=== PATIENT | female | born 2005 | race Caucasian/White ===

== ENCOUNTER 2025-03-21 16:19 | Emergency (ER) | payer MEDICAID, SELFPAY ==
--- OUTSIDE RECORDS SUMMARY | 2025-03-18 13:00 | XMS_ITS | Encounter Summary ---
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 Name Role Phone Ivan Cunha MD Primary Care Provider [phone] Villa Stout APRN Unavailable [phone] Gilmer Dhillon MD Unavailable [phone] Reason for Referral * Psychiatric (Routine) - Authorized Specialty Diagnoses / Procedures Referred By Contac t Referred To Contact Psychiatry Diagnoses Chronic migraine without aura without status migrainosus, not intractable Parker Peterson MD [address] [place] [address] [place] [address] Phone: tel: fax: [facility] Department of Psychiatry [address] [place] [address] Phone: tel: fax: Referral ID Status Reason Start Date Expiration Date Visits Requested Visits Authorized [id number] Authorized Specialty Services Required 03/18/2025 04/22/2026 1 1 * Diagnostic Lab (Routine) - Authorized Specialty Diagnoses / Procedures Referred By Contac t Referred To Contact Sleep Medicine Diagnoses Sleep apnea, unspecified type Procedures Home sleep testing Parker Peterson MD [address] [place] [address] [place] [address] Phone: tel: fax: Referral ID Status Reason Start Date Expiration Date V isits Requested Visits Authorized [id number] Authorized 03/18/2025 04/22/2026 1 1 Reason for Visit * Reason Comments Tonsil Stones Sore throat. Comes a nd goes. Sometimes has white stuff. headaches Vaginitis/Bacterial Vaginosis Used 1 wee k of metronidazole. White discharge and itching. Encounter Details Date Type Department Care Team (Late st Contact Info) Description 03/18/2025 1:00 PM EDT Office Visit [facility] Department of Internal Medicine [address], [place] [id number] Parker Peterson MD [address] [facility] [place] [address] Throat pain (Primary Dx); Vaginal discharge; Headache disorder; Chronic migraine without aura without status migrainosus, not intractable; Allergic rhinitis, unspecified seasonality, unspecified trigger; Otalgia of both ears; Pain with swallowing; Left lower quadrant abdominal pain; Abdominal bloating; Alternating constipation and diarrhea; Cramp, abdominal; Dyspnea on exertion; Chest tightness; Adjustment disorder with mixed anxiety and depressed mood; History of bipolar disorder; Family history of asthma; Mild intermittent asthma without complication; Family history of dementia; Memory problem; Family history of stroke; Family history of diabetes mellitus; Prediabetes; Family history of arthritis; Family history of kidney stone; Neck pain; Urinary urgency; History of UTI; History of endometriosis; History of chlamydia; PE (pulmonary thromboembolism) (HCC); History of pulmonary embolism; Abnormal uterine bleeding; History of tachycardia; Sleep apnea, unspecified type; Vitamin D deficiency; Need for hepatitis B vaccination; PCOS (polycystic ovarian syndrome) Social History Tobacco Use Types Packs/Day Years Used Date Smoking Tobacco: Never Passive Smoke Exposure: Never Smokeless Tobacco: Never Alcohol Use Standard Drinks/Week Comments Yes 0 (1 standard drink = 0.6 oz pur e alcohol) infrequent [facility] Utilities Answer Date Recorded In the past 12 months has e electric, gas, oil, or water company threatened to shut off services in your home? Yes 07/19/2024 Overall Financial Resource Strain (CARDIA) Answe r Date Recorded How hard is it for you to pa y for the very basics like food, housing, medical care, and heating? Somewhat hard 07/19/2024 PHQ-2 Answer Date Recorded PHQ-2 Score 0 12/29/2024 Hunger Vital Sign Answer Date Recorded Within the past 12 months, y ou worried that your food would run out before you got the money to buy more. Often true 07/19/19 25 Within the past 12 months, t he food you bought just didn't last and you didn't have money to get more. Often true 07/19/2024 PRAPARE - Transportation Answer Date Re corded In the past 12 months, has l ack of transportation kept you from medical appointments or from getting medications? No 07/19/2024 Lack of Transportation (Non-Medical) Not on file 07/19/2024 Housing Stability Vital Sign Answer Anthony e Recorded In the last 12 months, was t here a time when you were not able to pay the mortgage or rent on time? Yes 07/19/2024 In the past 12 months, how m any times have you moved where you were living? 4 07/19/2024 At any time in the past 12 m [facility], were you homeless or living in a custodial (including now)? No 07/19/2024 Comments No Sex and Gender Information Value Date Recorded Sex Assigned at Female 12/22/2023 2:27 PM EDT Legal Sex Female 10:41 AM EST Gender Identity Female 12/22/2023 2:27 PM EDT Sexual Orientation Straight 12/22/2023 2: 27 PM EDT COVID-19 Exposure Response Date Recorded In the last 10 days, have yo u been in contact with someone who was confirmed or suspected to have Coronavirus/COVID-19? No / Unsure 03/18/2025 1:02 PM EDT documented as of this encounter Last Filed Vital Signs Vital Sign Reading Time Taken Comments Blood Pressure 113/76 03/18/2025 1:06 PM EDT Pulse 83 03/18/2025 1:06 PM EDT Temperature 36.9 C (98.4 F) 03/18/2025 1:06 PM EDT Respiratory Rate - - Oxygen Saturation 97% 03/18/2025 1:06 PM EDT Inhaled Oxygen Concentration - - Weight 100 kg (220 lb 14.4 oz) 03/18/2025 1:06 P M EDT Height 160 cm (5' 3 ) 03/18/2025 1:06 PM EDT Body Mass Index 39.13 03/18/2025 1:06 PM EDT documented in this encounter Patient Instructions * Patient Instructions* Katrina Molina RN - 03/18/2025 1:00 PM EDT Please schedule nursing visit for second dose of Hepatitis B vaccine in one month 06/25 Sleep Snore Tttired O P BMI * Attachments The following attachments cannot be sent through Care Everywhere. * Low-FODMAP Eating Plan ([place] Ze[place]) * Hepatitis B Vaccine: What You Need to Know ([place]) documented in this encounter Progress Notes * Parker Peterson MD - 03/18/2025 1:00 PM EDT Follow-up Note Patient ID: Megan Dominguez is a 19 y.o. female. Patient Care Team: Ivan Cunha MD as PCP - General (Internal Medicine) Villa Stout APRN as Advanced Nurse Practitioner (Obstetrics and Gynecology) Gilmer Dhillon MD as Referring Physician (Obstetrics and Gynecology) Other Visits in Internal Medicine Date Provider Primary Dx 12/29/2024 Beverley Amanda MD Nail fungus 08/20/2024 Shelli Camarena APRN Seasonal allergies 07/19/2024 Ivan Cunha MD Annual physical exam Subjective Chief Complaint Patient presents with Tonsil Stones Sore throat. Comes and goes. Sometimes has white stuff. headaches Vaginitis/Bacterial Vaginosis Used 1 week of metronidazole. White discharge and itching. 19-year-old female with past medical history of migraines, morbid obesity, reactive airway possiblepersistent asthma however just on albuterol, PCOS, suspicion IBS, reported bipolar per patient justdoing talk therapy on trazodone however taking intermittently for insomnia, recurrent UTI, recentlybeen treated for vaginosis however not for Radha here for vaginal discharge also mentioning throat issues currently not having any whitish discharge but previously did noted does have ENT issues including otalgia however no hearing loss complains of GI discomfort chronic constipation alternating with diarrhea. Currently not following actively with behavioral health however taking as needed trazodone which was previously prescribed Review of Systems Constitutional: For ROS -see HPI and see assessment/plan Medications Ordered Prior to Encounter[1] Allergies: Shellfish containing products and Lactose Objective BP 113/76 (BP Location: Left upper arm, Patient Position: Sitting) Pulse 83 Temp 36.9 ??C (98.4??F) (Oral) Ht 160 cm (63 ) Wt 100 kg (220 lb 14.4 oz) SpO2 97% BMI 39.13 kg/m?? Physical Exam Constitutional: Appearance: She is obese. HENT: Head: Normocephalic and atraumatic. Comments: Tonsils with no redness/no white discharge Right Ear: Tympanic membrane normal. There is impacted cerumen. Left Ear: Tympanic membrane normal. There is impacted cerumen. Cardiovascular: Rate and Rhythm: Normal rate. Pulmonary: Effort: Pulmonary effort is normal. Breath sounds: Normal breath sounds. Neurological: General: No focal deficit present. Mental Status: She is alert and oriented to person, place, and time. Assessment Plan History of pulmonary embolism 4. Pulmonary/Derm/ENT Throat pain history of PE allergic rhinitis, otalgia of both ears, pain with swallowing, dyspnea onexertion, chest tightness, possible persistent asthma normal intermittent, family history of asthma, history of repeated elevation, need hep B vaccine Recommended using DuoNeb Will start on Flovent given patient has symptoms more than 2 days a week but remains a month Consider ENT referral in the future Per last note - She reports no current shortness of breath, chest pain, or exercise limitations. Continue to monitor for any recurrence of symptoms. Educated the patient on the increased risk for future surgeries and the need for pre- operative evaluations and possible prophylactic measures PCOS (polycystic ovarian syndrome) 7. Endocrine/thyroid BMI 39, family history of diabetes, prediabetes history, and history of kidney stone, vitamin D deficiency Will get a vitamin D level repeat Lab Results Component Value Date TSH 1.52 07/19/2024 Lab Results Component Value Date HGBA1C 5.0 07/19/2024 Per last note - A1c: 5.4 (checked by Powerhouse Electrician Apprentice on 02/16) - She reports being prescribed Mounjaro and Ozempic by her Powerhouse Electrician Apprentice. Unsure why both were prescribed simultaneously. Patient to clarify with her Powerhouse Electrician Apprentice regarding the choice of medication, as both are not typically prescribed together. Instructed the patient to follow up with pharmacy and insurance for approval and confirm the chosen medication. - Encouraged her to focus on diet,exercise, and weight loss to improve insulin resistance and prevent progression to diabetes. - Scheduled a follow-up appointment in one month to monitor her response to either Ozempic or Mounjaro and assess for any side effects. Alternating constipation and diarrhea 2. Gastrointestinal/ Vaginal discharge, history of BV and Radha, reported chlamydia history, left lower quadrant pain,abdominal bloating, alternating constipation and diarrhea, cramps, urinary urgency, history of UTI,history of endometriosis following the surgery had a PE, pain w swallowing -Will start on Bentyl dicyclomine as needed for cramps, Repeat iron panel, due to vitamin D deficiency check a celiac panel due to diarrhea Get calprotectin to rule out IBD H. pylori breath 6/stool Pepcid bid sent as needed Will send fluconazole 1 tablet get urine GC Per previous-Note - Abdominal XR to eval for suspected underlying constipation. Also suspect lower abdominal pain r/tto reported bowel habits. Pt advised to complete urine test prior to XR; testing ordered - Advised to avoid dairy Chronic migraine without aura without status migrainosus, not intractable #3 Neuropsychiatry Headache disorder, migraines, otalgia, adjustment disorder with anxiety depression, per patient wasdiagnosed with bipolar disorder had nightmares with Singulair questionable PTSD mentioned in previous note, memory problem, family history of stroke, family hx of dementia, suspicion sleep apnea Will reorder the sleep test Refill sumatriptan the patient can avoid NSAIDs which can cause stomach issues Behavioral health referral Ambulatory referral to Psychiatry Intensive Outpatient Program (IOP)?: Yes Pharmacotherapy?: Yes Conditions for referral? (Select all that apply): Bipolar Disorder Reason for Referral: talking with therapist,Trazodone for sleeping, Duloxetine urine issue, Venlaflaxine , Amitrypitiline will help with migraine, helps with IBS . TOPAMAX mood stabilizes, migraines,weight loss Release to patient: Immediate Per last note headaches are worsening. Sumatriptan has helped with her symptoms. Now that she is off of anticoagulation can also try naproxen. Magnesium for daily prophylaxis. Neurology referral given chronicity and severity. Family history of stroke 1 cardiovascular Dyspnea on exertion suspicion for reactive airway using a lot of albuterol, at history of tachycardia,family history of stroke, history of PE Should decrease the use of rescue inhaler, controller inhaler sent for persistent asthma Sleep medicine referral Lab Results Component Value Date LDLCALC 69 07/19/2024 Family history of arthritis #9 renal/musculoskeletal Headache disorder/migraines, family history of arthritis, neck pain, history of UTI, vitamin D deficiency Vitamin B2 to prevent migraines Voltaren gel for neck pain, since crooked hands in the family will check serology for rheumatoid Due to PTT elevation in the past and PE get ANDREA Avoid oral NSAIDs due to GI issues Tylenol as needed is okay Sumatriptan for migraines Return in about 2 weeks (around 04/01/2025). No LOS data to display Prepared/Electronically Signed by: Parker Peterson MD, 03/21/25 9:06 AM [1] Current Outpatient Medications on File Prior to Visit Medication Sig Dispense Refill BIOTIN ORAL Take by mouth. cholecalciferol, vitamin D3, (Vitamin D3) 25 mcg (1,000 unit) capsule Take 1,000 Units by mouth in the morning. cyanocobalamin, vitamin B-12, (VITAMIN B-12 ORAL) Take by mouth. EPINEPHrine (EPIPEN) 0.3 mg/0.3 mL injection Inject 0.3 mg into the muscle as needed for anaphylaxis (Anaphylaxis allergic reaction). 1 each 0 levocetirizine (XYZAL) 5 mg tablet TAKE 1 TABLET BY MOUTH EVERY DAY AT NIGHT 30 tablet 2 traZODone (DESYREL) 50 mg tablet Take 1 tablet (50 mg total) by mouth nightly as needed for insomnia. 90 tablet 0 [] ciclopirox (PENLAC) 8 % solution Apply topically nightly. Apply over nail and surroundingskin. Apply daily over previous coat. After seven (7) days, may remove with alcohol and continue cycle. (Patient not taking: Reported on 12/30/2024) 6.6 mL 0 dextromethorphan-guaifenesin (Tussin DM) 10-100 mg/5 mL liquid Take 5 mL by mouth 3 (three) times aday as needed (cough). (Patient not taking: Reported on 03/18/2025) 120 mL 0 diazePAM (Valium) 5 mg tablet Take one tablet 2 hours prior to the procedure (Patient not taking: Reported on 03/18/2025) 1 tablet 0 ergocalciferol (VITAMIN D2) 1,250 mcg (50,000 unit) capsule Take 1 capsule (50,000 Units total) by mouth once a week. (Patient not taking: Reported on 03/18/2025) 12 capsule 0 glycerin, ADULT, suppository Insert 1 suppository into the rectum daily as needed for constipation.(Patient not taking: Reported on 03/18/2025) 12 each 0 ketotifen (Zaditor) 0.025 % (0.035 %) ophthalmic solution Administer 1 drop into both eyes in the morning and 1 drop before bedtime. (Patient not taking: Reported on 03/18/2025) 5 mL 2 magnesium oxide 400 mg magnesium capsule Take 400 mg by mouth in the morning. (Patient not taking: Reported on 03/18/2025) 30 each 0 [] metFORMIN (GLUCOPHAGE) 500 mg tablet Take 1 tablet (500 mg total) by mouth in the morningand 1 tablet (500 mg total) in the evening. Take with meals. 60 tablet 2 Purelax 17 gram packet TAKE 17 G BY MOUTH IN THE MORNING. (Patient not taking: Reported on 03/18/2025) 30 packet 0 rimegepant 75 mg tablet,disintegrating Take 75 mg by mouth every other day. (Patient not taking: Reported on 03/18/2025) 15 tablet 0 UNKNOWN TO PATIENT Take 2 puffs by mouth as needed. Inhaler, cannot remember the name (Patient not taking: Reported on 03/18/2025) No current facility-administered medications on file prior to visit. documented in this encounter Miscellaneous Notes * Assessment & Plan Note - Parker Peterson MD - 03/21/2025 9:28 AM EDTAssociated Problem(s): Family history of arthritis #9 renal/musculoskeletal Headache disorder/migraines, family history of arthritis, neck pain, history of UTI, vitamin D deficiency Vitamin B2 to prevent migraines Voltaren gel for neck pain, since crooked hands in the family will check serology for rheumatoid Due to PTT elevation in the past and PE get ANDREA Avoid oral NSAIDs due to GI issues Tylenol as needed is okay Sumatriptan for migraines * Assessment & Plan Note - Parker Peterson MD - 03/21/2025 9:26 AM EDTAssociated Problem(s): Family history of stroke 1 cardiovascular Dyspnea on exertion suspicion for reactive airway using a lot of albuterol, at history of tachycardia,family history of stroke, history of PE Should decrease the use of rescue inhaler, controller inhaler sent for persistent asthma Sleep medicine referral Lab Results Component Value Date LDLCALC 69 07/19/2024 * Assessment & Plan Note - Parker Peterson MD - 03/21/2025 9:23 AM EDTAssociated Problem(s): Chronic migraine without aura without status migrainosus, not intractable #3 Neuropsychiatry Headache disorder, migraines, otalgia, adjustment disorder with anxiety depression, per patient wasdiagnosed with bipolar disorder had nightmares with Singulair questionable PTSD mentioned in previous note, memory problem, family history of stroke, family hx of dementia, suspicion sleep apnea Will reorder the sleep test Refill sumatriptan the patient can avoid NSAIDs which can cause stomach issues Behavioral health referral Ambulatory referral to Psychiatry Intensive Outpatient Program (IOP)?: Yes Pharmacotherapy?: Yes Conditions for referral? (Select all that apply): Bipolar Disorder Reason for Referral: talking with therapist,Trazodone for sleeping, Duloxetine urine issue, Venlaflaxine , Amitrypitiline will help with migraine, helps with IBS . TOPAMAX mood stabilizes, migraines,weight loss Release to patient: Immediate Per last note headaches are worsening. Sumatriptan has helped with her symptoms. Now that she is off of anticoagulation can also try naproxen. Magnesium for daily prophylaxis. Neurology referral given chronicity and severity. * Assessment & Plan Note - Parkre Peterson MD - 03/21/2025 9:20 AM EDTAssociated Problem(s): Alternating constipation and diarrhea 2. Gastrointestinal/ Vaginal discharge, history of BV and Radha, reported chlamydia history, left lower quadrant pain,abdominal bloating, alternating constipation and diarrhea, cramps, urinary urgency, history of UTI,history of endometriosis following the surgery had a PE, pain w swallowing -Will start on Bentyl dicyclomine as needed for cramps, Repeat iron panel, due to vitamin D deficiency check a celiac panel due to diarrhea Get calprotectin to rule out IBD H. pylori breath 6/stool Pepcid bid sent as needed Will send fluconazole 1 tablet get urine GC Per previous-Note - Abdominal XR to eval for suspected underlying constipation. Also suspect lower abdominal pain r/tto reported bowel habits. Pt advised to complete urine test prior to XR; testing ordered - Advised to avoid dairy * Assessment & Plan Note - Parker Peterson MD - 03/21/2025 9:16 AM EDT Associated Problem(s): PCOS (polycystic ovarian syndrome) 7. Endocrine/thyroid BMI 39, family history of diabetes, prediabetes history, and history of kidney stone, vitamin D deficiency Will get a vitamin D level repeat Lab Results Component Value Date TSH 1.52 07/19/2024 Lab Results Component Value Date HGBA1C 5.0 07/19/2024 Per last note - A1c: 5.4 (checked by Powerhouse Electrician Apprentice on 02/16) - She reports being prescribed Mounjaro and Ozempic by her Powerhouse Electrician Apprentice. Unsure why both were prescribed simultaneously. Patient to clarify with her Powerhouse Electrician Apprentice regarding the choice of medication, as both are not typically prescribed together. Instructed the patient to follow up with pharmacy and insurance for approval and confirm the chosen medication. - Encouraged her to focus on diet,exercise, and weight loss to improve insulin resistance and prevent progression to diabetes. - Scheduled a follow-up appointment in one month to monitor her response to either Ozempic or Mounjaro and assess for any side effects. * Assessment & Plan Note - Parker Peterson MD - 03/21/2025 9:06 AM EDTAssociated Problem(s): History of pulmonary embolism 4. Pulmonary/Derm/ENT Throat pain history of PE allergic rhinitis, otalgia of both ears, pain with swallowing, dyspnea onexertion, chest tightness, possible persistent asthma normal intermittent, family history of asthma, history of repeated elevation, need hep B vaccine Recommended using DuoNeb Will start on Flovent given patient has symptoms more than 2 days a week but remains a month Consider ENT referral in the future Per last note - She reports no current shortness of breath, chest pain, or exercise limitations. Continue to monitor for any recurrence of symptoms. Educated the patient on the increased risk for future surgeries and the need for pre- operative evaluations and possible prophylactic measures documented in this encounter Plan of Treatment Upcoming Encounters Date Type Department Care Team (Late st Contact Info) Description 04/07/2025 1:40 PM EDT Office Visit [facility] Department of Internal Medicine [address] [place] [address] Ivan Cunha MD [address] [facility] [place] 04/07/2025 3:00 PM EDT Office Visit [facility] Department of Neurology [address] [place] [address] Dionisio Barnhart MD [address] [place] [address] 2025 12:40 PM EST Office Visit [facility] Department of Internal Medicine [address] [place] [address] Ivan Cunha MD [address] [facility] [place] [address] 01/02/2026 10:00 AM EDT Office Visit [facility] [place] [address] [place] [address] Villa Stout APRN [address] [facility] [place] [address] Scheduled Orders Name Type Priority Associated Diagnoses Orde r Schedule HELICOBACTER PYLORI, UREA BREATH TEST (Q) Lab Routine Abdominal bloating 1 Occurrences starting 03/18/2025 until 03/18/2026 Home sleep testing Sleep Center Routine Sleep apnea, unspecified type 1 Occurrences starting 03/18/2025 until 03/18/2026 Neisseria gonorrhea/Chlamydia trachomatis NAAT Microbiology Routine Vaginal discharge 1 Occurrences starting 03/18/2025 until 03/18/2026 Urinalysis, Complete - macroscopic and microscopic (Panel) Lab Routine Vaginal discharge 1 Occurrences starting 03/18/2025 until 09/15/2026 Basic metabolic panel Lab Routine Abdominal bloating 1 Occurrences starting 03/18/2025 until 09/15/2026 Complete blood count (CBC) and differential Lab Routine Abdominal bloating 1 Occurrences starting 03/18/2025 until 03/18/2026 Calprotectin, Fecal Lab Routine Abdominal bloating 1 Occurrences starting 03/18/2025 until 09/15/2026 Vitamin D 25 hydroxy Lab Routine Vitamin D deficiency 1 Occurrences starting 03/18/2025 until 03/18/2026 Activated partial thromboplastin time (aPTT) Lab Routine PE (pulmonary thromboembolism) (HCC) Expected: 03/18/2025, Expires: 03/18/2026 Antinuclear Antibody (ANDREA) Qualitative, Reflex to Titer Lab Routine Family history of arthritis 1 Occurrences starting 03/18/2025 until 09/15/2026 Rheumatoid Factor Lab Routine Family history of arthritis 1 Occurrences starting 03/18/2025 until 09/15/2026 Cylic Ctrullinated Peptide Antibody Lab Routine Family history of arthritis 1 Occurrences starting 03/18/2025 until 03/18/2026 Helicobacter pylori Ag, fecal by CARMITA Lab Routine Abdominal bloating 1 Occurrences starting 03/18/2025 until 09/15/2026 Iron, TIBC, and Ferritin panel Lab Routine Abnormal uterine bleeding 1 Occurrences starting 03/18/2025 until 09/19/2026 Celiac Disease Reflexive [place], Serum Lab Routine Alternating constipation and diarrhea 1 Occurrences starting 03/18/2025 until 09/15/2026 C-reactive protein Lab Routine Abdominal bloating 1 Occurrences starting 03/18/2025 until 09/15/2026 Scheduled Referrals Name Type Priority Associated Diagnoses Orde r Schedule Ambulatory referral to Psychiatry Outpatient Referral Routine Chronic migraine without aura without status migrainosus, not intractable Ordered: 03/18/2025 documented as of this encounter Visit Diagnoses Diagnosis Throat pain- Primary Vaginal discharge Leukorrhea, not specified as infective Headache disorder Headache Chronic migraine without aura without status migrainosus, not intractable Allergic rhinitis, unspecified seasonality, unspecified trigger Otalgia of both ears Pain with swallowing Dysphagia, unspecified Left lower quadrant abdominal pain Abdominal bloating Flatulence, eructation, and gas pain Alternating constipation and diarrhea Cramp, abdominal Abdominal pain, unspecified site Dyspnea on exertion Other dyspnea and respiratory abnormality Chest tightness Other chest pain Adjustment disorder with mixed anxiety and depressed mood History of bipolar disorder Family history of asthma Mild intermittent asthma without complication Family history of dementia Family history of other neurological diseases Memory problem Memory loss Family history of stroke Family history of stroke (cerebrovascular) Family history of diabetes mellitus Prediabetes Other abnormal glucose Family history of arthritis Family history of kidney stone Family history of other kidney diseases Neck pain Cervicalgia Urinary urgency Urgency of urination History of UTI History of endometriosis Personal history of other genital system and obstetric disorders History of chlamydia PE (pulmonary thromboembolism) (HCC) Chronic pulmonary embolism History of pulmonary embolism Personal history of venous thrombosis and embolism Abnormal uterine bleeding Unspecified disorder of menstruation and other abnormal bleeding from female genital tract History of tachycardia Sleep apnea, unspecified type Vitamin D deficiency Need for hepatitis B vaccination PCOS (polycystic ovarian syndrome) Polycystic ovaries documented in this encounter Additional Health Concerns Assessment Noted Time PHQ-9 Depression Total Score: 17 024 11:26 AM EDT documented as of this encounter Care Teams 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
--- OUTSIDE RECORDS SUMMARY | 2025-03-20 11:30 | XMS_ITS | Encounter Summary ---
Author Organization [facility] Address [address] [place] [address] Care Team Providers Care Cooling Tower Operator Name Role Phone Lacey Miller MD Unavailable [phone] Ivan Cunha MD Primary Care Provider [phone] Reason for Visit * Reason Comments Vaginitis Pt stated possible y east infection x few days. Encounter Details Date Type Department Care Team ([facility] Contact Info) Description 03/20/2025 11:30 AM EDT Office Visit [facility] [address] [phone] John Johnson MD [address] [place] [address] Elena Hawthorne, MOTOR VEHICLE EXAMINER [address] [place] [address] Vaginal discharge (Primary Dx); Acute cystitis without hematuria Social History Tobacco Use Types Packs/Day Years Used Date Smoking Tobacco: Never Assessed Comments No Sex and Gender Information Value Date Recorded Sex Assigned at Female 06/16/2022 10:51 PM EST Legal Sex Female 7:21 PM EST Gender Identity Female 06/16/2022 10:51 PM EST Sexual Orientation Heterosexual (straight) 06/16 10:51 PM EST documented as of this encounter Last Filed Vital Signs Vital Sign Reading Time Taken Comments Blood Pressure 109/74 03/20/2025 11:43 AM EDT Pulse 83 03/20/2025 11:43 AM EDT Temperature 36.2 C (97.2 F) 03/20/2025 11:43 AM EDT Respiratory Rate 18 03/20/2025 11:43 AM EDT Oxygen Saturation 98% 03/20/2025 11:43 AM EDT Inhaled Oxygen Concentration - - Weight - - Height - - Body Mass Index - - documented in this encounter Progress Notes * Elena Hawthorne, MOTOR VEHICLE EXAMINER - 03/20/2025 11:56 AM EDT Assessment & Plan Megan was seen today for vaginitis. Diagnoses and all orders for this visit: Vaginal discharge - SureSwab Advanced Vaginitis Plus, TMA - Urine Culture - POCT Urinalysis Dipstick, Automated - nystatin (MYCOSTATIN) 204955 UNIT/GM cream; Apply topically 2 (two) times a day as needed (external vaginal irritation yeast). - fluconazole (diFLUcan) 150 MG tablet; Take 1 tablet (150 mg total) by mouth as needed (take one today may repeat in 72 hrs if yeast symptoms persist). Acute cystitis without hematuria - phenazopyridine (PYRIDIUM) 200 MG tablet; Take 1 tablet (200 mg total) by mouth 3 (three) times aday as needed for bladder spasms. Take with food. Stains urine dark orange. - nitrofurantoin monohydrate (MACROBID) 100 MG capsule; Take 1 capsule (100 mg total) by mouth 2 (two) times a day with meals. Dispense generic equivalent of MACROBID Medical Decision Making and Data Synthesis: The diagnosis is acute cystitis with hematuria and vaginal discharge based on history, physical exam, and lab/diagnostic testing. I considered pyelonephritis, kidney stone, and other bacterial infections, but the pt's presentation does not support these diagnoses. UA dipstick positive for infection. The pt/family was advised that some diseases present atypically and the pt was given explicit discharge instructions. -Will initiate macrobid at this time. Instructed pt to take antibiotic as directed. Pelvic exam wasdeclined today. -Pyridium q 8 hrs PRN urinary discomfort/burning. Take with food to prevent nausea. Do not use contact lenses while taking, as this medication contains a dye that may alter the color of tears, feces,and urine (usually changes to a dark orange hue). Recommend wearing a panty liner to prevent staining underwear. -Will send urine for culture and adjust antibiotic therapy if needed. Will prescribe fluconazole and nystatin as patient has high suspicion for yeast infection as she is white thick discharge. -Advised patient to increase fluids and avoid caffeine and alcohol, as these can irritate the bladder. -Instructed pt to wipe front to back, wear cotton underwear to help improve air flow. -Urinate after intercourse. -Avoid perfumed lotions or soaps. Use mild soaps when cleaning perineal region. -Cranberry pills are helpful to take daily if you have recurrent UTIs. The cranberry juice is shown to have a lot of sugar and is not recommended. Follow up with PCP or SERVICE AND REPAIR SUPERVISOR within 1 week if symptoms do not improve.. Patient declined test today. Reviewed with the patient any signs and symptoms that would warrant immediate medical attention. Ifany new or worsening symptoms develop, including fevers, chills, flank pain, pelvic pain, vaginal pain, vaginal discharge, bleeding, abdominal pain, nausea, or vomiting, instructed the pt to go directly to the emergency department for reevaluation. Patient understands and agrees with the plan. Communication barriers and lifestyle preferences were addressed with the Patient and/or family. Thecare plan including medications and self-management goals were reviewed to the best of the Patient and/or family's ability. All questions and concerns were answered. Patient and/or family verbalized understanding of the plan of care. Subjective Megan Dominguez is a 19 y.o. female HPI Chief Complaint: Dysuria, frequency, and urgency Location: Bladder Duration: 3 days Context: Acute Severity: Moderate Other Pertinent History: Patient presents to the clinic today with urinary frequency, urgency, and dysuria for the past 3 days. Also with white thick vaginal discharge and irritation to external labia. She denies any genitalsores. She recently had BV and was treated with metronidazole. She has PCOS. She is not on control. She has endometriosis. Aggravating/Alleviating factors: worse with urination, nothing makes it better OTC therapy attempted: None She does not get her period as she has PCOS and endometriosis. Patient denies current or breast-feeding. Denies fever, chills, nausea, vomiting, diarrhea, flank pain, back pain, gross hematuria, recent urological procedure, or abdominal pain. I have reviewed the patients medications, allergies, past medical history, social history and family history as documented. History reviewed. No pertinent past medical history. History reviewed. No pertinent surgical history. Social History[1] History reviewed. No pertinent family history. Review of Systems: All other systems reviewed are negative except where documented below: Cardiovascular: No Chest pain Pulmonary: No SOB Gastrointestinal: No Vomiting; No Diarrhea Constitutional: No Fever : See HPI Objective Vitals: 03/20/25 1143 BP: 109/74 Pulse: 83 Resp: 18 Temp: 97.2 ??F (36.2 ??C) SpO2: 98% Vital signs reviewed. Constitutional: Well-appearing, in no apparent respiratory distress. Does not appear toxic. Eyes: Conjunctivae clear. No icterus. Ear, Nose, Mouth, Throat: Grossly normal inspection. Normal voice, handling secretions normally. Neck: Supple, no nuchal signs. No cervical lymphadenopathy. Cardiovascular: Normal S1, S2. No extra heart sounds. Respiratory: Breath sounds clear and equal bilaterally, no wheezes, rales, or rhonchi. Gastrointestinal: Soft and non-tender throughout. BS normal x 4 quadrants. Back: Bilateral negative CVAT. Musculoskeletal: No extremity tenderness. Skin: Normal for age and race, grossly normal temperature and turgor. No acute rash. Neurologic: Alert and appropriate, no apparent acute deficits. Normal gait. Psychiatric: Mood and manner are appropriate. Grooming and personal hygiene are appropriate. Hematologic: No significant bruising, petechia, or purpura. Pelvic exam declined today. Results for orders placed or performed in visit on 03/20/25 POCT Urinalysis Dipstick, Automated Collection Time: 03/20/25 11:57 AM Specimen: Urine Result Value Ref Range Source, UA Clean Catch Color, UA Yellow Yellow & Clear, Yellow Clarity, UA Slightly Cloudy (A) Clear Glucose, UA Negative Negative Bilirubin, UA Negative Negative Ketones, UA Negative Negative Spec Grav, UA 1.025 1.005, 1.010, 1.015, 1.020, 1.025 Blood, UA Negative Negative pH, UA 6.0 5.0, 5.5, 6.0, 6.5, 7.0, 7.5, 8.0 Protein, UA Negative Negative Urobilinogen, UA 0.2 0.2, 1.0 Nitrite, UA Negative Negative Leukocyte Esterase, UA Large (+++) (A) Negative Lot Number [id number] Geotechnical Department Manager Pass Pass Elena Hawthorne APRN 03/20/25 12:03 PM [1] documented in this encounter Plan of Treatment Scheduled Orders Name Type Priority Associated Diagnoses Orde r Schedule Urine Culture Microbiology Routine Vaginal discharge Ordered: 03/20/2025 documented as of this encounter Goals Goal Patient Goal Type Associated Problems Recent Progress Patient-Stated? Author PT STG 1 Physical Therapy No Michel Steele, PT Note: PF 1. Initiate and complete the pelvic floor biofeedback assessment with the use of the PT Supplied PG 6330 Insert x 1 week. PT LTG 2 Physical Therapy No Michel Steele PT Note: PF 2. Provide patient education and training to improve bladder control and eliminate pelvic pain with the use of the following interventions consisting of pelvic floor muscle retraining and strengthening, core strengthening as needed, LE hip extension strengthening, Dilator utilization, intra vaginal MFR techniques, breath control and time voiding techniques x 12 weeks. PT LTG 3 Physical Therapy No Michel Steele, PT Note: PF 3. Improve the Initial PFIQ Survey Score Pelvis and Bladder Section to less than 16 x twelve weeks. PT LTG 4 Physical Therapy No Michel Steele, PT Note: PF 4. Improve pelvic floor muscle resting tone and pelvic floor muscle strength, as needed to +3.00 microvolt's, uV and +12.0 - +15.0 microvolt's, uV respectively x 12 weeks. documented as of this encounter Procedures Procedure Name Priority Date/Time Associated Diagnosis Comments POCT URINALYSIS DIPSTICK, AUTOMATED Routine 03/20/2025 11:57 AM EDT Vaginal discharge SURESWAB ADVANCED VAGINITIS PLUS, TMA Routine 03/20/2025 11:56 AM EDT Vaginal discharge documented in this encounter Results * (ABNORMAL) POCT Urinalysis Dipstick, Automated (03/20/2025 11:57 AM EDT) Pathologist [facility] Source, UA Clean Catch Color, UA Yellow Yellow & Clear, Yellow Clarity, UA Slightly Cloudy(A) Clear Glucose, UA Negative Negative Bilirubin, UA Negative Negative Ketones, UA Negative Negative Spec Grav, UA 1.025 1.005, 1.010, 1.015, 1.020, 1.025 Blood, UA Negative Negative pH, UA 6.0 5.0, 5.5, 6.0, 6.5, 7.0, 7.5, 8.0 Protein, UA Negative Negative Urobilinogen, UA 0.2 0.2, 1.0 Nitrite, UA Negative Negative Leukocyte Esterase, UA Large (+++)(A) Negative Lot Number [id number] Geotechnical Department Manager Pass Pass Urine 03/20/2025 11:5 7 AM EDT Elena Hawthorne MOTOR VEHICLE EXAMINER POINT OF CARE TEST ORDERAB LES Final Result * (ABNORMAL) [facility] Advanced Vaginitis Plus, TMA (03/20/2025 11:56 AM EDT) [facility] Adv Bacterial Vaginosis (BV), TMA NEGATIVE NEGATIVE MissingLINK Radha Species DETECTED(A) NOT DETECTED MissingLINK Radha Glabrata NOT DETECTED NOT DETECTED MissingLINK Comment: Radha species C. albicans, C. tropicalis, C. parapsilosis, and/or C. dubliniensis can be detected, but not differentiated, in the Radha spp. result. Trichomonas Vaginalis (TV), TMA NOT DETECTED NOT DETECTED MissingLINK Chlamydia Trachomatis RNA, TMA NOT DETECTED NOT DETECTED MissingLINK Neisseria Gonorrhoeae RNA, TMA NOT DETECTED NOT DETECTED MissingLINK Comment: For additional information, please refer to https://education.[employer]/faq/WSN670 (This link is being provided for information/ educational purposes only.) 03/20/2025 11:5 6 AM EDT 03/21/2025 3:36 AM EDT us Elena Hawthorne MOTOR VEHICLE EXAMINER LAB AMB MICRO ORDERABLES F inal Result [facility] [address] [place] [phone] documented in this encounter Visit Diagnoses Diagnosis Vaginal discharge- Primary Leukorrhea, not specified as infective Acute cystitis without hematuria documented in this encounter Care Teams Cooling Tower Operator Relationship Specialty Start Date End Date Ivan Cunha MD [address] [place] [id number] PCP - General Internal Medicine 12/31/23 Lacey Miller MD [address] [address] Pediatric, General 05/30/23 documented as of this encounter
[2025-03-21 16:37] VITALS: BP 123/58; PULSE 69; RESP 16; TEMP 36.4; O2SAT 96; BMI 39.9
--- NOTE | 2025-03-21 16:38 | ED.GENADULT ---
HPI - General Adult General Chief complaint: Abdominal Pain Stated complaint: UTI, abd pain Time Seen by Provider: 03/21/25 19:46 Source: patient and other (patient's boyfriend) Mode of arrival: ambulatory Limitations: no limitations History of Present Illness ED Provider: Jemima Watts PA-C HPI narrative: Patient is a 19 year old assigned female at with no reported medical history presenting to the emergency department today with flank pain and a known UTI. Patient states that she was at an urgent care yesterday and diagnosed with a UTI then started on nitrofuantoin. Patient states that she is concerned that she is not on the right antibiotic as she is continuing to have symptoms. Patient denies any other complaints at this time. Related Data Previous Rx's ?Medication ?Instructions ?Recorded cefuroxime axetil 250 mg tablet 500 mg (2 x 250 mg) PO BID 7 days 03/21/25 #28 tabs fluconazole 150 mg tablet 150 mg PO Q3D 2 doses #2 tabs 03/21/25 Allergies Allergy/AdvReac Type Severity Reaction Status Date / Time shellfish derived Allergy Severe Anaphylaxis Verified 03/21/25 16:40 Review of Systems Constitutional: Constitutional: Reports as per HPI Eyes: Eyes: Reports as per HPI ENT: Reports as per HPI Cardiovascular: Cardiovascular: Reports as per HPI Respiratory: Respiratory: Reports as per HPI Gastrointestinal: Gastrointestinal: Reports as per HPI Genitourinary: Genitourinary: Reports as per HPI Musculoskeletal: Musculoskeletal: Reports as per HPI Integumentary/Breasts: Skin/Breast: Reports as per HPI Neurologic: Reports as per HPI Psychiatric: Psychiatric: Reports as per HPI Endocrine: Endocrine: Reports as per HPI Hematologic/Lymphatic: Hematologic/Lymphatic: Reports as per HPI Allergic/Immunologic: Allergic/Immunologic: Reports as per HPI [facility] Past Medical History Attestation statement: The following information was validated with the patient. Source: old records reviewed and nursing notes reviewed Social History Social History Advance Directives: No Advance Directives Information Provided: No Do you have a plan to hurt others: No Plan Physical Exam ED Vital Signs: Vital Signs - 24 hr 03/21/25 16:37 03/21/25 20:00 Temperature 97.6 F 97.6 F Pulse Rate 69 69 Respiratory Rate 16 16 Blood Pressure 123/58 L 123/58 L Pulse Oximetry 96 96 Oxygen Delivery Method Room Air Room Air BMI result Body Mass Index 39.9 Const General: cooperative, no acute distress, alert and awake Nutritional Appearance: well nourished Orientation/consciousness: patient oriented x3 HENMT Head: Yes normal to inspection and Yes atraumatic Ears: hearing grossly normal bilaterally and external ears normal General nose exam: Normal external nose present, no nasal discharge noted and no epistaxis Face and sinus: Yes normal facial exam, No abrasion and No laceration Mouth: Normal oral and palatal mucosa present, no drooling and no muffled voice Eyes General: appearance normal, both eyes and all related structures Periorbital: periorbital findings normal Eyelids: Yes eyelids normal Conjunctivae: conjunctivae normal Pupils: Equal, round and reactive pupils present EOM: EOMs intact bilaterally Neck Neck: Yes normal visual inspection and Yes full ROM Resp Effort & Inspection: normal respiratory effort and able to speak in complete sentences Neuro General: patient oriented x3, moves all extremities and CN's II-XI intact bilaterally Cranial nerves: Yes Equal, round and reactive pupils present Cognition (Neuro): normal cognition Extrem General: Yes normal to inspection, Yes full ROM and Yes capillary refill normal Psych Appearance: grossly normal Mental Status: mental status grossly normal Affect: normal affect Attitude: cooperative Thought process: Normal thought process present Thought content: Normal thought content present Insight: Good insight present (Psych) Course Course Course Narrative: Rapid medical examination performed in triage by Jemima Watts PA-C. Patient is a 19 year old assigned female at presenting to the emergency department with a UTI and flank pain. Detailed physical exam and review of systems are deferred to the assembler arranger. Labs ordered. Patient placed back in the waiting room pending room availability and results. Medical Decision Making Medical Decision Making MDM Narrative: Patient is a 19 year old assigned female at with no reported medical history presenting to the emergency department today with flank pain and a known UTI. Patient's physical exam was unremarkable. Patient's blood work was unremarkable. Patient's urine showed evidence of infection. I explained my physical exam findings as well as all test results to the patient and the patient's boyfriend. I answered all questions asked by the patient and the patient's boyfriend. Given patient's concerns about her antibiotic - will switch to a cephalosporin. I stressed the importance of the patient taking her medication as directed (either prescribed or as the over the counter packaging recommends). I stressed the importance of the patient following up with her primary care provider. I stressed the importance of the patient returning to the emergency department immediately if her symptoms were to worsen or if she were to develop any dizziness, shortness of breath, difficulty breathing, chest pain, blurry vision, loss of vision, nausea, vomiting, abdominal pain, fever, chills, back pain, or any other complaints. Patient and the patient's boyfriend verbalized agreement and understanding with this treatment plan and discharge. Differential Diagnosis Differential Diagnoses: The differential diagnosis associated with the presentation includes Pyelonephritis UTI Admission/Observation Consideration of admission/observation: Escalation of care including admission/observation considered Patient would have been admitted to the hospital had her work up had any findings where hospital admission was appropriate and her clinical presentation warranted hospital admission. Lab Data [facility] Lab Attestation statement: I reviewed the patient's lab results. My interpretation of these results are in the [facility] Rationale portion of this note. 03/21/25 17:07 03/21/25 17:07 Labs: Lab Results 03/21/25 03/21/25 Range/Units 17:07 17:20 WBC 6.7 (4.8-10.8) X10*3/uL RBC 4.23 (4.20-5.50) X10*6/uL Hgb 12.1 (12.0-16.0) g/dl Hct 37.6 (37.0-47.0) % MCV 88.9 (80.0-98.0) fL MCH 28.6 (27.0-33.0) pg MCHC 32.2 (31.0-35.0) g/dl RDW 13.0 (11.0-16.0) % Plt Count 252 (160-400) X10*3/uL MPV 10.0 (9.4-12.3) fL Immature Gran % (Auto) 1.0 H (0.0-0.4) % Neut % (Auto) 59.8 (45-73) % Lymph % (Auto) 29.8 (20-40) % Cook % (Auto) 8.1 (2-11) % Eos % (Auto) 0.9 (0-4) % Baso % (Auto) 0.4 (0-2) % Lymph # (Auto) 2.0 (1.2-4.9) X10*3/uL Cook # (Auto) 0.5 (0.1-1.2) X10*3/uL Eos # (Auto) 0.1 (0.0-0.4) X10*3/uL Baso # (Auto) 0.0 (0.0-0.2) X10*3/uL Abs Immat Gran (auto) 0.07 H (0.00-0.03) X10*3/uL Absolute Neuts (auto) 4.0 (2.0-8.3) x10*3/uL Absolute Nucleated RBC 0.000 (0.0-0.012) X10*3/uL Nucleated RBC % (auto) 0.0 (0.0-0.2) /100WBC Sodium 143 (135-145) mmol/L Potassium 4.1 (3.3-5.1) mmol/L Chloride 110 H (96-108) mmol/L Carbon Dioxide 25 (22-29) mmol/L Anion Gap 12 (12-20) BUN 11 (9-16) mg/dL Creatinine 0.70 (0.5-1.4) mg/dL Estim Creat Clear Calc 145.2 Estimated GFR > 60 Random Glucose 112 (60-115) mg/dL Calcium 9.0 (8.4-10.2) mg/dL Total Bilirubin 0.2 (0.0-1.0) mg/dL AST 38 H (5-31) U/L ALT 51 H (0-31) U/L Alkaline Phosphatase 91 (39-117) U/L Total Protein 7.2 (6.5-8.0) g/dL Albumin 4.3 (3.5-5.0) g/dL Beta HCG, Quant < 2 mIU/mL Urine Color [place] A Urine Appearance Clear Urine pH 5.5 (5.0-9.0) Ur Specific [place] >= 1.030 H (1.005-1.025) Urine Protein Trace (Neg-Trace) mg/dL Urine Glucose (UA) Negative (Negative) mg/dL Urine Ketones Negative (Negative) mg/dL Urine Blood Negative (Negative) Urine Nitrite Positive H (Negative) Ur Leukocyte Esterase Moderate (2+) H (Negative) Urine RBC 0-2 (0-2) /HPF Urine WBC 0-5 (0-5) /HPF Ur Squamous Epith Cells 3-5 (0-2) /HPF Urine Bacteria None Seen (None Seen) Hyaline Casts 0-2 (0-2) /LPF Independent Historian Clinical information obtained from an independent historian. History obtained from or confirmed by: Other (patient's boyfriend provided additional history and confirmed the history provided by the patient. ) Tests considered The following testing was considered but not selected: I considered obtaining a CT scan of the abdomen / pelvis however, the patient's current presentation did not warrant this as her clinical presenation is most consistent with a UTI. Prescription Management I considered prescription management with: Antibiotic (patient prescribed a different antibiotic, as noted in the MDM Rationale portion of this note. ) Discharge Plan Discharge Clinical Impression: UTI (urinary tract infection) Patient Disposition: Home, Self-Care Instructions: Urinary Tract Infection in Women (DC) Additional Instructions: Take your antibiotic as prescribed. IF you are prescribed home medications and/or you are taking over the counter medications at home - it is very important you continue to do so as prescribed / directed unless told otherwise. Follow up with a primary care provider. Return to the emergency department immediately if your symptoms worsen or if you develop any numbness, tingling, dizziness, shortness of breath, difficulty breathing, chest pain, blurry vision, loss of vision, nausea, vomiting, abdominal pain, fever, chills, back pain, or any other complaints. If you do not have a primary care provider - call any of the below numbers to establish and follow up with a primary care provider. [facility] ([place]) [phone] [place] [address], [address] [facility] ([address] [place]) [phone] [place] [address], [address] [facility], [address] [facility] ([address] [place]) [phone] [place] [address], [address] [facility], [address] [facility] ([place]) [phone] [place] [address] [address] [facility] [address] [facility] [phone] [place] [address], [address] Please see the information below about our Patient Portal. If you are not yet enrolled in the [facility] Patient Portal, you will receive an enrollment email invitation following your visit to any [facility] care setting. You may also self-enroll in the Patient Portal by visiting our website: [email or web address] The following information is required to access the Patient Portal: - Your [facility] Medical Record Number - Your personal home email address (must match what is in your electronic medical record, Registration staff can assist with this) - Name - Date of Capabilities of the Patient Portal: - Message some providers - View upcoming appointments - Access your health summary, medical history, and visit history - View current conditions and allergies - View procedure and lab results - View your medications, including guidelines, side effects, and precautions - Complete pre-appointment questionnaires requested by your provider - Ready summary reports of your office visits and procedures To access the Patient Portal Mobile [employer], follow these directions: - Search Door 6 in the [employer] Store or [employer] Store - Download the [employer] - Search for [facility] - Enter your login/password Prescriptions: New cefuroxime axetil 250 mg tablet 500 mg PO BID 7 Days Qty: 28 0RF fluconazole 150 mg tablet 150 mg PO Q3D Qty: 2 0RF Stand Alone Forms: Work/School Release Interventions: ED Discharge Assessment Last Done: 03/21/25 20:00 Discharge Date/Time: 03/21/25 20:01 Print Language: Pashto
[2025-03-21 17:13] LABS: MANUAL DIFF FLAG NO
[2025-03-21 17:20] LABS: Hematocrit 37.6 % (37.0-47.0); Hemoglobin 12.1 g/dl (12.0-16.0); Imm Gran Abs Auto 0.07 X10*3/uL (0.00-0.03); Imm Gran Pct Auto 1.0 % (0.0-0.4); Lymphocytes Absolute Auto 2.0 X10*3/uL (1.2-4.9); Mean Corpuscular HGB Conc 32.2 g/dl (31.0-35.0); Mean Corpuscular Hemoglobin 28.6 pg (27.0-33.0); Mean Corpuscular Volume 88.9 fL (80.0-98.0); NRBC Abs Auto 0.000 X10*3/uL (0.0-0.012); NRBC Pct Auto 0.0 /100WBC (0.0-0.2); Platelet Count 252 X10*3/uL (160-400); Red Blood Count 4.23 X10*6/uL (4.20-5.50); White Blood Count 6.7 X10*3/uL (4.8-10.8)
[2025-03-21 17:40] LABS: Alanine Aminotransferase 51 U/L (0-31); Albumin Level 4.3 g/dL (3.5-5.0); Alkaline Phosphatase 91 U/L (39-117); Anion Gap 12 (12-20); Aspartate Amino Transferase 38 U/L (5-31); Blood Urea Nitrogen 11 mg/dL (9-16); Calcium 9.0 mg/dL (8.4-10.2); Carbon Dioxide 25 mmol/L (22-29); Chloride 110 mmol/L (96-108); Creatinine Clr Calc Pharmacy 145.2; Estimated Glomerular Filt Rate > 60; Potassium 4.1 mmol/L (3.3-5.1); Sodium 143 mmol/L (135-145); Total Protein 7.2 g/dL (6.5-8.0)
[2025-03-21 17:45] LABS: Appearance Urine Clear; Glucose Urine UA Negative (Negative); PH 5.5 (5.0-9.0); Specific Gravity - Urine >= 1.030 (1.005-1.025); UMIC TRIGGER UACC YES
[2025-03-21 17:48] LABS: UACC Culture Trigger YES
[2025-03-21 20:00] VITALS: BP 123/58; PULSE 69; RESP 16; TEMP 36.4; O2SAT 96
--- OUTSIDE RECORDS SUMMARY | 2025-03-21 20:03 | XMS_ITS | Encounter Summary ---
Author Organization [facility] Address [address] [place] [address] Phone Care Team Providers Care Auditing Clerk Name Role Phone Referring, No Primary Care Provider Unavailabl e Reason for Visit * Reason Onset Date Comments Results 10/28/2024 Encounter Details Date Type Department Care Team (Late st Contact Info) Description 10/28/2024 Telephone [facility] [address] [address] Yves Kumar PA [address] [place] [address] Results Social History Tobacco Use Types Packs/Day Years Used Date Smoking Tobacco: Never Alcohol Use Standard Drinks/Week Comments Not Currently 0 (1 standard drink = 0.6 oz pur e alcohol) Comments No Sex and Gender Information Value Date Recorded Sex Assigned at Not on file Legal Sex Female 1:53 PM EDT Gender Identity Not on file Sexual Orientation Not on file documented as of this encounter Miscellaneous Notes * Telephone Encounter - Johanny Ferrell PA - 10/28/2024 3:27 PM EDT Requesting cream, states pill is not helping. Notes continued itching * Telephone Encounter - Doni Velázquez - 10/28/2024 11:08 AM EDT Pt calling in regards to results that she has viewed already - pt states that diflucan is not working and is wondering if a cream could be sent in for her to the pharmacy documented in this encounter Plan of Treatment Not on file documented as of this encounter Visit Diagnoses Not on filedocumented in this encounter Care Teams Auditing Clerk Relationship Specialty Start Date End Date Referring, No PCP - General 07/08/24 documented as of this encounter
--- OUTSIDE RECORDS SUMMARY | 2025-03-21 20:03 | XMS_ITS | Encounter Summary ---
Author Organization [facility] Address [address] [place] [address] Phone Care Team Providers Care Teacher Of The Visually Impaired Name Role Phone Referring, No Primary Care Provider Unavailabl e Encounter Details Date Type Department Care Team ([facility] st Contact Info) Description 03/10/2025 Results Follow-Up [facility] [address] [address] SureSwab Advanced Vaginitis Plus, TMA ([place] Tube) (Q) Social History Tobacco Use Types Packs/Day Years Used Date Smoking Tobacco: Never Smokeless Tobacco: Never Alcohol Use Standard Drinks/Week Comments Not Currently 0 (1 standard drink = 0.6 oz pur e alcohol) Comments No Sex and Gender Information Value Date Recorded Sex Assigned at Not on file Legal Sex Female 1:53 PM EDT Gender Identity Not on file Sexual Orientation Not on file documented as of this encounter Plan of Treatment Not on file documented as of this encounter Visit Diagnoses Not on filedocumented in this encounter Care Teams Teacher Of The Visually Impaired Relationship Specialty Start Date End Date Referring, No PCP - General 07/08/24 documented as of this encounter
--- OUTSIDE RECORDS SUMMARY | 2025-03-21 20:05 | XMS_ITS | Encounter Summary ---
Author Organization [facility] Address [address] [place] [address] Care Team Providers Care Fuel Cell Builder Name Role Phone Ivan Cunha MD Primary Care Provider [phone] Villa Stout APRN Unavailable [phone] Gilmer Dhillon MD Unavailable [phone] Encounter Details Date Type Department Care Team (Late st Contact Info) Description 02/11/2025 Results Follow-Up [facility] Department of Women's Health [address] [phone] Villa Stout, QAMAR [address] [facility] [address] US breast limited left Social History Tobacco Use Types Packs/Day Years Used Date Smoking Tobacco: Never Passive Smoke Exposure: Never Smokeless Tobacco: Never Alcohol Use Standard Drinks/Week Comments Yes 0 (1 standard drink = 0.6 oz pur e alcohol) infrequent [facility] Utilities Answer Date Recorded In the past 12 months has [employer] electric, gas, oil, or water company threatened [...] any time in the past 12 m [facility], were you homeless or living in a usp (including now)? No 07/19/2024 Comments No Sex [...] suspected to have Coronavirus/COVID-19? No / Unsure 02/10/2025 2:04 PM EDT documented as of this encounter Plan of Treatment Upcoming Encounters Date Type Department Care Team (Late st Contact Info) Description 04/07/2025 1:40 PM EDT Office Visit [facility] Department of Internal Medicine [address] [place] [address] Ivan Cunha MD [address] [facility] [place] [address] 04/07/2025 3:00 PM EDT Office Visit [facility] Department of Neurology [address] [phone] Dionisio Barnhart MD [address] [place] [address] 2025 12:40 PM EST Office Visit [facility] Department of Internal Medicine [address] [place] [address] Ivan Cunha MD [address] [place] [address] [place] [address] 01/02/2026 10:00 AM EDT Office Visit [facility] [place] [address] [place] [address] Villa Stout APRN [address] [facility] [address] documented as of this encounter Visit Diagnoses Not on filedocumented in this encounter Additional Health Concerns Assessment Noted Time PHQ-9 Depression Total Score: 17 024 11:26 AM EDT documented as of this encounter Care Teams Fuel Cell Builder Relationship Specialty Start Date End Date Ivan Cunha MD [address] [place] [address] [place] [address] PCP - General Internal Medicine 12/30/22 Villa Stout, QAMAR [address] [address] Advanced Nurse Practitioner Obstetrics and Gynecology 02/17/23 Gilmer Dhillon MD [address] [place] [address] [address] Referring Physician Obstetrics and Gynecology 10/29/23 documented as of this encounter
--- OUTSIDE RECORDS SUMMARY | 2025-03-21 20:05 | XMS_ITS | Encounter Summary ---
Author Organization [facility] Address [address] [place] [address] Care Team Providers Care Digital Marketing Assistant Name Role Phone Lacey Miller MD Unavailable [phone] Ivan Cunha MD Primary Care Provider [phone] Encounter Details Date Type Department Care Team (Latest Contact Info) Description 03/20/2025 Travel Social History Tobacco Use Types Packs/Day Years Used Date Smoking Tobacco: Never Assessed Comments No Sex and Gender Information Value Date Recorded Sex Assigned at Female 06/16/2022 10:51 PM EST Legal Sex Female 7:21 PM EST Gender Identity Female 06/16/2022 10:51 PM EST Sexual Orientation Heterosexual (straight) 06/16 10:51 PM EST documented as of this encounter Plan of Treatment Not on file documented as of this encounter Goals Goal Patient Goal Type Associated Problems Recent Progress Patient-Stated? Author PT STG 1 Physical Therapy No Michel Steele, PT Note: PF 1. Initiate and complete the pelvic floor biofeedback assessment with the use of the PT Supplied PG 6330 Insert x 1 week. PT LTG 2 Physical Therapy No Michel Steele, PT Note: PF 2. Provide patient education [...] 12 weeks. documented as of this encounter Visit Diagnoses Not on filedocumented in this encounter Care Teams Digital Marketing Assistant Relationship Specialty Start Date End Date Ivan Cunha MD [address] [place] [address] PCP - General Internal Medicine 12/31/23 Lacey Miller MD [address] [address] Pediatric, General 05/30/23 documented as of this encounter
--- OUTSIDE RECORDS SUMMARY | 2025-03-21 20:05 | XMS_ITS | Data Portability ---
Author Organization [place] - [facility], 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 Pt and partner had intercourse right after finishing medication. pt then found out partner didn't take some of the days of medication. Discussed one time treatment and abstaining for 1 weeks after the meds and then condom use for another 7 days. Will see what testing shows. Pt will tell partner to be retested and retreated if needed Not available 09/09/2022 18:55:38 09/15/2022 09/15/2022 pt here for Nexplanon removal. Wants to start OCP- has taken in the past, reviewed how to take, normal side effects and ACHES. TO use BUM x 14 days. Pt also complaining of pelvic pain and inc frequency of urination. Will send urine cx. If urine neg, will consider treatment for PID as pt has had it before related to trich, mild CMT on exam Not available 09/15/2022 13:06:26 Plan of Treatment Reminders Order Date Submit Date Provider Last Modified By Organization Details Last Modified Time Details Appointments None recorded. Lab HBsAg (hepatitis B surface Ag), confirmatio n, serum 2022 023 [facility], [address] [place], [id number] 18:46:34 RPR (rapid plasma reagin), serum 2022 023 [facility], [address] [place] [address], [id number] 3 18:46:34 HIV 1+2 AB + HIV 1 p24 Ag, qualitative immunoassay , serum 2022 023 [facility], [address] [place] [address], [id number] 3 18:46:33 hepatitis C Ab, serum 2022 023 [facility], [address] [place] [address], [id number] 3 18:46:34 hsv-2 igg Ab, serum 2022 023 [facility], [address] [place] [address], 3 18:46:33 bacterial vaginosis + vaginitis panel, vaginal 2022 023 [facility], [address] [place] [address], 3 16:04:28 test, urine 2022 023 [email or web address] In-Office Order, Internal Use Only DO Not Attach Compendium DO Not Attach Compendium, Do Not Delete/merge, [id number] 18:23:20 CT + NG + TV, DNA, urine/swab - Results to maria m Rahman [facility] 2022 023 [facility], [address] [place] [address], [id number] 3 23:51:50 culture, urine 2022 023 [facility], [address] [place] [address], [id number] 3 09:07:40 bacterial vaginosis + vaginitis panel, vaginal 2022 023 [email or web address] [facility], [address] [place] [address], [id number] 3 13:35:56 urinalysis, dipstick 2022 023 [email or web address] In-Office Order, Internal Use Only DO Not Attach Compendium DO Not Attach Compendium, Do Not Delete/merge, 3 19:59:58 culture, urine - results to [facility] 2022 023 [facility], [address] [place] [address], [id number] 3 13:14:04 CT + NG + TV, DNA, urine/swab - [facility] 2022 023 [facility], [address] [place] [address], [id number] 3 13:20:39 HBsAg (hepatitis B surface Ag), confirmatio n, serum - results to [facility] 2022 023 [facility], [address] [place] [address], [id number] 3 22:03:57 RPR (rapid plasma reagin), serum - results to [facility] 2022 023 [facility], [address] [place] [address], [id number] 3 22:03:57 HIV 1+2 AB + HIV 1 p24 Ag, qualitative immunoassay , serum - results to [facility] 2022 023 [facility], [address] [place] [address], [id number] 3 22:03:57 hepatitis C Ab, serum - results to [facility] 2022 023 [facility], [address] [place] [address], [id number] 3 22:03:56 ashley wet prep 2022 023 [email or web address] In-Office Order, Internal Use Only DO Not Attach Compendium DO Not Attach Compendium, Do Not Delete/merge, 3 19:59:58 ph, vaginal fluid 2022 023 [email or web address] In-Office Order, Internal Use Only DO Not Attach Compendium DO Not Attach Compendium, Do Not Delete/merge, [id number] 19:59:58 whiff test, vaginal fluid 2022 023 [email or web address] In-Office Order, Internal Use Only DO Not Attach Compendium DO Not Attach Compendium, Do Not Delete/merge, [id number] 19:59:58 Referral None recorded. Procedures removal, implantable contracepti ve (PROC) 2022 023 [email or web address] Not available 21:30:55 Surgeries None recorded. Imaging None recorded. Medication Orders Loestrin Fe /20 (28-Day) 1 mg-20 mcg (21)/75 mg (7) tablet 2022 023 [email or web address] [facility][id number], [address] [place], [address], 15:06:54 Diflucan 150 mg tablet 2022 023 [email or web address] [facility] #[id number], [address] [place], [address], 15:05:25 terconazole 0.4 % vaginal cream 2022 023 [email or web address] [facility] #[id number], [address] [place], [address], 15:06:10 Patient TargetsNo targets recorded. Patient Instructions Encounter Date Encounter Id Patient Instructions Last Modified By Organization Details Last Modified Time 08/20/2022 [id number] sexually transmitted disease education Not available 08/20/2022 20:29:27 vaginal yeast infection: care instructions Not available 08/20/2022 19:59:58 11/27/2022 [id number] sexually transmitted disease education Not available 11/27/2022 18:23:20 04/10/2023 [id number] sexually transmitted disease education Not available 04/10/2023 18:46:16 Reason for Referral None Reported. Results Created Date Observation Date Name Description Value Unit Range Abnormal Flag Note LastModifiedBy Organization Detail LastModifiedTime 08/20/19 23 08/22/2022 CHLAM YDIA/ N.VENU ORRHO EAE AND T. VAGIN CAREY RNA, QL TMA chlamydia trachomatis RNA, tma, urogenital NOT DETECT ED not detect ed normal Not Available [facility] [place] [facility] [address], [address], 08/22/2022 09:35:18 08/20/19 23 08/22/2022 CHLAM YDIA/ N.VENU ORRHO EAE AND T. VAGIN CAREY RNA, QL TMA neisseria gonorrhoeae RNA, tma, urogenital NOT DETECT ED not detect ed normal Not Available [facility] [place] [facility] [address], [address], 08/22/2022 09:35:18 08/20/19 23 08/22/2022 CHLAM YDIA/ N.VENU ORRHO EAE AND T. VAGIN CAREY RNA, QL TMA comment The rufus tical perfo rmanc e teresa cteri stics of this assay , when used to test SureP ath(T M) speci mens have been deter mined by [facility]. The modif icati ons have not been clear ed or appro mauricio by the FDA. This assay has been valid ated pursu ant to the CLIA regul ation s and is used for clini zeke purpo ses. For addit ional infor cindy hawkins e refer to https ://ed ucati on.qu armando [employer]. com/f aq/FA Q154 (This link is being provi ded for infor sherri encinas/ educa jacob l purpo ses only. ) Not Available [facility] [place] [facility] [address], [address], 08/22/2022 09:35:18 08/20/19 23 08/22/2022 CHLAM YDIA/ N.VENU ORRHO EAE AND T. VAGIN CAREY RNA, QL TMA trichomonas vaginalis RNA, ql tma DETECT ED not detect ed abnormal For addit ional infor cindy hawkins e refer to http: //[facility]ina sanchezque stdia gnost ics.c om/ faq/T neida nash tma (This link is being provi ded for infor sherri nal/ educa jacob l purpo ses only. ) Not Available [facility] [address], [place], [address], 08/22/2022 09:35:18 08/20/19 23 08/20/2022 URINE CULTU RE urine source URINE, CLEAN CATCH Not Available [facility] [address] [place], [address] 08/22/2022 10:27:20 08/20/19 23 08/20/2022 URINE CULTU RE micro culture result abnormal Multi ple bacte rial morph otype s 10,00 0 colon ies/m L prese nt. No furth er ident ifica tion will be perfo rmed. NOTE: For urine cultu re speci mens not submi tted in mendiola top tubes , due to suppl y chain limit s, the labor atory is tempo raril y perfo rming urine cultu res from FDA appro mauricio prese rvati ve tubes that have not been valid ated, as well as from refri gerat ed steri le urine colle ction cups that do not conta in a prese rvati ve. Cultu re of unpre serve d urine may produ ce false ly eleva diana bacte rial count s. Not Available [facility] [address] [place], [address] 08/22/2022 10:27:20 08/20/19 23 08/20/2022 whiff test, vagin al fluid Result negati ve Not Available In-Office Order Internal Use Only DO Not Attach Compendium DO Not Attach Compendium, Do Not Delete/merge, [id number] 08/20/2022 19:54:19 08/20/19 23 08/20/2022 ph, vagin al fluid Vaginal pH 5.0 Not Available In-Offi ce Order Internal Use Only DO Not Attach Compendium DO Not Attach Compendium, Do Not Delete/merge, 08/20/2022 19:54:18 08/20/19 23 08/20/2022 ashley wet prep Hyphae Presen t Not Available In-Office Order Internal Use Only DO Not Attach Compendium DO Not Attach Compendium, Do Not Delete/merge, 08/20/2022 19:54:18 08/20/19 23 08/20/2022 ashley wet prep Clue Cells Absent Not Available In-Offi ce Order Internal Use Only DO Not Attach Compendium DO Not Attach Compendium, Do Not Delete/merge, 08/20/2022 19:54:18 08/20/19 23 08/20/2022 ashley wet prep Yeast Presen t Not Available In-Office Order Internal Use Only DO Not Attach Compendium DO Not Attach Compendium, Do Not Delete/merge, 08/20/2022 19:54:18 08/20/19 23 08/20/2022 ashley wet prep Other marked candid a Not Available In-Office Order Internal Use Only DO Not Attach Compendium DO Not Attach Compendium, Do Not Delete/merge, 08/20/2022 19:54:18 08/20/19 23 08/20/2022 urina lysis , dipst ick Interpretati on negati ve Not Available In-Office Order Internal Use Only DO Not Attach Compendium DO Not Attach Compendium, Do Not Delete/merge, 08/20/2022 19:28:39 08/20/19 23 08/20/2022 urina lysis , dipst ick Leukocytes Negati ve Not Available In-Office Order Internal Use Only DO Not Attach Compendium DO Not Attach Compendium, Do Not Delete/merge, 08/20/2022 19:28:39 08/20/19 23 08/20/2022 urina lysis , dipst ick Nitrite negati ve Not Available In-Office Order Internal Use Only DO Not Attach Compendium DO Not Attach Compendium, Do Not Delete/merge, 08/20/2022 19:28:39 08/20/19 23 08/20/2022 urina lysis , dipst ick Urobilinogen Normal : 0.2 mg/dl Not Available In-Office Order Internal Use Only DO Not Attach Compendium DO Not Attach Compendium, Do Not Delete/merge, [facility] 08/20/2022 19:28:39 08/20/19 23 08/20/2022 urina lysis , dipst ick Protein Negati ve Not Available In-Office Order Internal Use Only DO Not Attach Compendium DO Not Attach Compendium, Do Not Delete/merge, 08/20/2022 19:28:39 08/20/19 23 08/20/2022 urina lysis , dipst ick pH 6.0 Not Available In-Office Order Internal Use Only DO Not Attach Compendium DO Not Attach Compendium, Do Not Delete/merge, [facility] 08/20/2022 19:28:39 08/20/19 23 08/20/2022 urina lysis , dipst ick Blood Negati ve Not Available In-Office Order Internal Use Only DO Not Attach Compendium DO Not Attach Compendium, Do Not Delete/merge, [id number] 08/20/2022 19:28:39 08/20/19 23 08/20/2022 urina lysis , dipst ick Ketone Negati ve Not Available In-Office Order Internal Use Only DO Not Attach Compendium DO Not Attach Compendium, Do Not Delete/merge, 08/20/2022 19:28:39 08/20/19 23 08/20/2022 urina lysis , dipst ick Bilirubin Negati ve Not Available In-Office Order Internal Use Only DO Not Attach Compendium DO Not Attach Compendium, Do Not Delete/merge, 08/20/2022 19:28:39 08/20/19 23 08/20/2022 urina lysis , dipst ick Glucose Negati ve Not Available In-Office Order Internal Use Only DO Not Attach Compendium DO Not Attach Compendium, Do Not Delete/merge, [id number] 08/20/2022 19:28:39 08/20/19 23 08/20/2022 urina lysis , dipst ick Appearance Clear Not Available In-Offi ce Order Internal Use Only DO Not Attach Compendium DO Not Attach Compendium, Do Not Delete/merge, [id number] 08/20/2022 19:28:39 08/20/19 23 08/20/2022 urina lysis , dipst ick Color Yellow Not Available In-Office Order Internal Use Only DO Not Attach Compendium DO Not Attach Compendium, Do Not Delete/merge, [id number] 08/20/2022 19:28:39 09/01/19 23 08/31/2022 HEPAT ITIS B SURFA CE ANTIG EN hepatitis B surface antigen Non-Re active non-re active Not Available [facility] [address], [place], 09/02/2022 10:53:30 09/01/19 23 08/31/2022 HIV 1/2 HIV 1/2 antigen Non-Re active non-re active Resul ts show no evide nce of infec tion by HIV 1/2. If clini hamzah indic ated, repea t CMIA or test by nucle ic acid ampli ficat ion. Not Available [facility] [address] [place], [address] 09/02/2022 10:53:30 09/01/19 23 08/31/2022 HEPAT ITIS C ANTIB GENIA REFLE X PCR QUANT hepatitis C Ab reflex HCV PCR quant 0.24 Non-Re active S/co non-re active Not Available [facility] [address], [place], 09/02/2022 10:53:31 09/01/19 23 08/31/2022 SYPHI LIS REFLE X TO RPR & TPPA T. pallidum Ab 0.07 Non-re active S/co non-re active Not Available [facility] [address], [place], 09/02/2022 10:53:31 09/10/19 23 09/09/2022 VAGIN ITIS PROFI LE gardnerella Negati ve negati ve Not Available [facility] [address] [place], [address] 09/10/2022 09:42:07 09/10/19 23 09/09/2022 VAGIN ITIS PROFI LE trichomonas Negati ve negati ve Not Available [facility] [address] [place], [address] 09/10/2022 09:42:07 09/10/19 23 09/09/2022 VAGIN ITIS PROFI LE gagandeep Negati ve negati ve Not Available [facility] [address], 09/10/2022 09:42:07 09/17/19 23 09/16/2022 URINE CULTU RE urine source URINE, CLEAN CATCH Not Available [facility] [address] [place], [address] 09/17/2022 09:07:40 09/17/19 23 09/16/2022 URINE CULTU RE micro culture result Lactob acillu s/alph a hemoly tic strep ([place] te 1) abnormal Not Available [facility] [address] [place] [address], 09/17/2022 09:07:40 09/17/19 23 09/16/2022 URINE CULTU RE colony count 1,000 col/m L (Isol ate 1). Organ isms isola diana are in small numbe rs and may not relat e to infec tion. NOTE: For urine cultu re speci mens not submi tted in mendiola top tubes , due to suppl y chain limit s, the labor atory is tempo raril y perfo rming urine cultu res from FDA appro mauricio prese rvati ve tubes that have not been valid ated, as well as from refri gerat ed steri le urine colle ction cups that do not conta in a prese rvati ve. Cultu re of unpre serve d urine may produ ce false ly eleva diana bacte rial count s. Not Available [facility] [address] [place], [address] 09/17/2022 09:07:40 11/28/19 23 11/29/2022 CHLAM YDIA/ N.VENU ORRHO EAE AND T. VAGIN CAREY RNA, QL TMA chlamydia trachomatis RNA, tma, urogenital NOT DETECT ED not detect ed normal Not Available [facility] [place] [facility] [address], [place], [address], 11/29/2022 23:51:50 11/28/19 23 11/29/2022 CHLAM YDIA/ N.VENU ORRHO EAE AND T. VAGIN CAREY RNA, QL TMA neisseria gonorrhoeae RNA, tma, urogenital NOT DETECT ED not detect ed normal Not Available [facility] [place] [facility] [address], [place], [address], 11/29/2022 23:51:50 11/28/19 23 11/29/2022 CHLAM YDIA/ N.VENU ORRHO EAE AND T. VAGIN CAREY RNA, QL TMA comment The rufus tical perfo rmanc e teresa cteri stics of this assay , when used to test SureP ath(T M) speci mens have been deter mined by [facility]. The modif icati ons have not been clear ed or appro mauricio by the FDA. This assay has been valid ated pursu ant to the CLIA regul ation s and is used for clini zeke purpo ses. For addit ional infor cindy hawkins refer to https ://ed ucati on.qu [employer]. [employer]/f aq/FA Q154 (This link is being provi ded for infor matio n/ educa jacob l purpo ses only. ) Not Available [facility] [place] [facility] [address], [place], [address], 11/29/2022 23:51:50 11/28/19 23 11/29/2022 CHLAM YDIA/ N.VENU ORRHO EAE AND T. VAGIN CAREY RNA, QL TMA trichomonas vaginalis RNA, ql tma NOT DETECT ED not detect ed normal For addit ional infor cindy hawkins e refer to http: //royal sanchezque stdia gnost ics.c om/ faq/T neida nash tma (This link is being provi ded for infor matio nal/ educa jacob l purpo ses only. ) Not Available [facility] [place] [facility] [address], [place], [address], 11/29/2022 23:51:50 11/28/1911/27/2022 pregn gloria test, urine Result negati ve Not Available In-Office Order Internal Use Only DO Not Attach Compendium DO Not Attach Compendium, Do Not Delete/merge, [id number] 11/27/2022 18:08:49 04/10/2004/10/2023 ADVAN LALA BACTE RIAL VAGIN OSIS (BV), TMA adv bacterial vaginosis (bv), tma Positi ve negati ve abnormal Not Available [facility] [address] [place] [address], [id number] 04/11/2023 16:04:27 04/10/2004/10/2023 ADVAN LALA AZRA DA VAGIN ITIS (CV)/ TRICH OMONA S VAGIN CARYE (TV), TMA gagandeep species Negati ve negati ve Not Available [facility] [address] [place] [address], [id number] 04/11/2023 16:04:28 04/10/20 23 04/10/2023 ADVAN LALA AZRA DA VAGIN ITIS (CV)/ TRICH OMONA S VAGIN CAREY (TV), TMA gagandeep glabrata Negati ve negati ve Not Available [facility] [address] [place] [address], [id number] 04/11/2023 16:04:28 04/10/20 23 04/10/2023 ADVAN LALA AZRA DA VAGIN ITIS (CV)/ TRICH OMONA S VAGIN CAREY (TV), TMA trichomonas vaginalis (TV), tma Negati ve negati ve Not Available [facility] [address] [place], [address] 04/11/2023 16:04:28 04/10/2004/10/2023 CHLAM YDIA/ GONOR RHOEA E RNA, TMA neisseria gonorrhoeae RNA, tma Negati ve negati ve The perfo rmanc e of endoc ervic al, vagin al, and male ureth ral swab speci mens, male and femal e urine speci mens, and Prese rvCyt Solut ion liqui d Pap speci mens has not been evalu ated in adole scent s less than 16 years of age. Not Available [facility] [address] [place], [address] 04/11/2023 16:04:33 04/10/20 23 04/10/2023 CHLAM YDIA/ GONOR RHOEA E RNA, TMA chlamydia trachomatis RNA, tma Negati ve negati ve The perfo rmanc e of endoc ervic al, vagin al, and male ureth ral swab speci mens, male and femal e urine speci mens, and Prese rvCyt Solut ion liqui d Pap speci mens has not been evalu ated in adole scent s less than 16 years of age. Not Available [facility] [address] [place], [address] 04/11/2023 16:04:33 Result Notes None recorded. 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 Procedures Surgical History Date Name Laterality Status Provider Name and Address Organization Details Recorded Time 09/16/19 23 Control Implant Removal completed BLANKA TAVERAS CNM [address] [facility], [address], [place], [address], [facility] 09/15/2022 13:00:12 Breast reduction completed [facility] 08/20/2022 19:14:37 tympanostomy completed [facility] 08/20/2022 19:14:49 extraction of wisdom tooth completed [facility] 08/20/2022 19:14:56 Imaging Results None recorded. Procedure Notes None recorded. Medical Equipment None Reported. Allergies Allergen ID Allergen Name Allergen Category Reaction Reaction Severity Criticality Documentation Date Start Date Code Code System Note Provider Name and Address Organization Details Recorded Time [id number] lactase medicatio n Not available Not available Not available 08/20/2022 45526 RxNorm Zena Bui null, [place] - [facility] 3 19:03:25 Medications Name Sig Start Date Stop Date Status Note LastModified by Organization Details LastModified Time medroxyprog esterone 10 mg tablet TAKE 1 TABLET (10 MG) BY MOUTH IN THE MORNING FOR 10 DAYS active Not Available Not Available No t Available terconazole 0.4 % vaginal cream active Not Available Not Available Not Available doxycycline hyclate 100 mg capsule TAKE 1 CAPSULE BY MOUTH TWICE A DAY FOR 7 DAYS active Not Available Not Available No t Available trazodone 50 mg tablet TAKE 1 TABLET BY MOUTH EVERY DAY AT NIGHT active Not Available Not Available No t Available cetirizine 10 mg tablet TAKE 1 TABLET (10 MG) BY MOUTH DAILY. active Not Available Not Available No t Available fluconazole 150 mg tablet TAKE 1 TAB BY MOUTH IF NEEDED YEAST INFECTION . TAKE ANOTHER IN 3 DAYS IF SYMPTOMS PERSIST 04/10 completed Not Available Not Available Not Available fluconazole 200 mg tablet TAKE ONE TABLET TODAY AND ONE AGAIN IN 2 DAYS. active Not Available Not Available No t Available ondansetron HCl 4 mg tablet active Not Available Not Available Not Available clotrimazol e 1 % vaginal cream INSERT 1 APPLICATO R INTO THE VAGINA 1 TIME EACH DAY IN THE EVENING FOR 7 DAYS. 04/10 completed Not Available Not Available Not Available metronidazo le 500 mg tablet TAKE 1 TABLET TWICE A DAY FOR 7 DAYS active Not Available Not Available No t Available sulfamethox azole 800 mg-trimetho prim 160 mg tablet TAKE 1 TABLET BY MOUTH TWICE A DAY FOR 10 DAYS 04/10 completed Not Available Not Available Not Available amoxicillin 875 mg tablet TAKE 1 TABLET BY MOUTH EVERY 12 HOURS FOR 10 DAYS active Not Available Not Available No t Available Zoloft 50 mg tablet Take 1 tablet every day by oral route. active Not Available Not Available No t Available fluticasone propionate 50 mcg/actuati on nasal spray,suspe nsion SPRAY 1-2 SPRAYS BY NASAL ROUTE DAILY. 04/10 completed Not Available Not Available Not Available clotrimazol e 1 % topical cream active Not Available Not Available Not Available diazepam [address] ONE TABLET IN THE VAGINA TWICE A DAY NEEDED FOR PELVIC PAIN active Not Available Not Available No t Available amoxicillin 500 mg-potassiu m clavulanate 125 mg tablet TAKE 1 TABLET BY MOUTH TWICE A DAY FOR 7 DAYS 04/10 completed Not Available Not Available Not Available Ventolin HFA 90 mcg/actuati on aerosol inhaler INHALE 2 PUFFS EVERY 4 HOURS NEEDED FOR WHEEZING OR SHORTNESS OF BREATH active Not Available Not Available No t Available Clotrimazol e 3 Day 2 % vaginal cream active Not Available Not Available Not Available cyclobenzap rine 5 mg tablet TAKE 1 TABLET AT NIGHT BEFORE BED active Not Available Not Available No t Available 07/12 (28) 1 mg-20 mcg (21)/75 mg (7) tablet TAKE 1 TABLET BY MOUTH EVERY DAY 04/10 completed Not Available Not Available Not Available nitrofurant oin monohydrate /macrocryst als 100 mg capsule 04/09 completed Not Available Not Available Not Available emtricitabi ne 200 mg-tenofovi r disoproxil fumarate 300 mg tablet active Not Available Not Available Not Available Lactaid Fast Act 9,000 unit tablet active Not Available Not Available Not Available Isentress 400 mg tablet TAKE 1 TABLET (400 MG TOTAL) BY MOUTH 2 TIMES A DAY 04/10 completed Not Available Not Available Not Available cetirizine 10 mg capsule active Not Available Not Available Not Available Purelax 17 gram/dose oral powder TAKE 17 G BY MOUTH DAILY MIXED WITH FLUIDS 04/10 completed Not Available Not Available Not Available Kelly 30 mg tablet TAKE 1 TABLET BY MOUTH WITHIN 5 DAYS OF UNPROTECT ED INTERCOUR SE. active Not Available Not Available No t Available baclofen [address] ONE TABLET IN THE VAGINA TWICE A DAY NEEDED FOR PELVIC PAIN active Not Available Not Available No t Available Vitals Date Recorded Body weight Systolic And Diastolic Provider Name and Address Organization Details Last Updated DateTime 08/20/2022 87455.34 g 124/70 mm[Hg] Zena Bui [facility] 08/20/2022 19:31:16 Date Recorded Systolic And Diastolic Provider Name and Address Organization Details Last Updated DateTime 09/15/2022 116/62 mm[Hg] Srikanth Mcpherson [facility] 09/15/2022 12:20:56 Date Recorded Systolic And Diastolic Provider Name and Address Organization Details Last Updated DateTime 11/27/2022 106/69 mm[Hg] Srikanth Mcpherson [facility] 11/27/2022 18:10:08 Date Recorded Systolic And Diastolic Provider Name and Address Organization Details Last Updated DateTime 04/10/2023 134/74 mm[Hg] Zena Bui [facility] 04/10/2023 18:28:32 Social History Question Answer Notes LastModified by Organizat ion Details LastModified Time Tobacco Smoking Status Never Smoker Zena Jaimessonu chen [facility] 04/10/2023 18:27:41 In The 14 Days Before Symptom Onset, Have You Had Close Contact With A Laboratory-confir med COVID-19 While That Case Was Ill? No [email or web address] Information not available 04/10/2023 In The 14 Days Before Symptom Onset, Have You Had Close Contact With A Person Who Is Under Investigation For COVID-19 While That Person Was Ill? No [email or web address] Information not available 04/10/2023 Have You Been To An Area Known To Be High Risk For COVID-19? No [email or web address] Information not available 04/10/2023 Do You Reside In Or Have You Traveled To An Area Where Ebola Virus Transmission Is Active? No [email or web address] Information not available 04/10/2023 What Is The Highest Grade Or Level Of School You Have Completed Or The Highest Degree You Have Received? DG24503-6 CURRENTLY IN COLLEGE [email or web address] Information not available 04/10/2023 Have You Recently Or Are You Planning To Travel To An Area With Zika Virus? No [email or web address] Information not available 04/10/2023 Do You Have Any Children? No [email or web address] Information not available 08/20/2022 Does Your Partner Physically Hurt You Or Threaten To Hurt You? No [email or web address] Information not available 08/20/2022 Has Your Partner Forced You To Have Sex Or Perform Sex Acts When You Did Not Want To? No [email or web address] Information not available 08/20/2022 Does Your Partner Insult, Scream At Or Talk Down To You? Yes [email or web address] Information not available 08/20/2022 Does Your Partner Control You Or Any Part Of Your Life? No [email or web address] Information not available 04/10/2023 Are You Afraid Of Your Partner? No Information not available 08/20/2022 Drug Use? No [email or web address] Information n ot available 08/20/2022 Do You Feel Safe At Home? Yes [email or web address] Information not available 08/20/2022 How Many Children Do You Have? -1 [email or web address] Information not available 04/10/2023 Are You Sexually Active? Yes [email or web address] Information not available 04/10/2023 Have You Recently Traveled Abroad? No [email or web address] Information not available 08/20/2022 Sex: Unknown Functional Status Question Answer Note LastModified by Backtrace I/O ion Details LastModified Time Are you currently employed? 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 Family History Nothing Reported Notes:NO FHX OF COLON, BREAS T, Medical History Condition Response Other N *No Diseases or Conditions N Blood clots N Breast Cancer N Colon cancer N Benign breast disease N Depression Y Lung Disease N Defects or Inherited Disease N Anesthesia Complications N BrCa gene tested? N Headaches/Migraines Y Have you ever been on isolation N Anxiety Disorder N Arthritis N HSV N Infertility N Interstitial Cystitis N Abnormal pap N Acid Reflux (GERD) N Cancer N Stroke N Endometriosis N Fibromyalgia N Spina Bifida N HIV N Heart Problems N Sexual Dysfunction N Autoimmune disorder N Kidney or Bladder Problems N Thyroid Problems N GI Problems N Eating Disorder N Anemia N Multiple Sclerosis N Psychiatric Illness N Ovarian Cancer N Diabetes N Blood Transfusions N Bladder disease N History of MRSA N Abnormal Uterine Bleeding N Hyperlipidemia N BrCa positive N Diverticulitis N Abuse/Domestic Violence N Asthma N Hepatitis N Hypertension N Osteoporosis N Thrombophilias N Gynecological History Statement/Question Response Benign Breast Disease N Date of LMP 03/28/2023 IPV Screen Done 09/15/2022 STIs/STDs Y HPV Vaccine Y Endometriosis N PID Y Age at Menarche 7 Fibroids N Cervical Cancer N Uterine Cancer N BrCa gene tested? N Current Control Method None Ovarian Cancer N Breast Cancer N Frequency of Cycle (Q days) Sexually Active? Y Bladder Problems Y Pap Required? N Obstetrics History GPAL:G 0 P 0 0 0 0 Immunizations Vaccine Type Date Status Note Provider Nam e and Address Organization Details Recorded Time HPV, quadrivalent 7 completed Zena Hao null, [place] - [facility] 08/20/2022 19:32:57 HPV, quadrivalent 8 completed Zena Hao null, [place] - [facility] 08/20/2022 19:34:09 Past Encounters Encounter ID Performer Location Encounter Start Date Encounter Closed Date Diagnosis/Indication Diagnosis SNOMED-CT Code Diagnosis ICD10 Code Diagnosis IMO Codes Diagnosis Note [id number] Soraya Alvarado APRN [facility] [address] [address] 03/29/2021 18:44:42 03/29/2021 21:07:03 [id number] Soraya Alvarado APRN [facility] [address] [address] 03/29/2021 18:48:06 03/29/2021 20:46:26 Pain in pelvis 95459850 R10.2 Exam confirms proper IUD placement. Strings visible at os. Scant bleeding.T ransvagina l ultrasound performed for IUD check. Mirena placed today, 03/29/2021 . IUD seen in the proper anatomical position. Retroverte d uterus. Bilateral ovaries and the uterus appear normal. There is a small amount of sonolucent free fluid within the posterior cul de sac. [id number] Maria M Rahman CNM [facility] [address] [address] 08/20/2022 18:58:09 08/20/2022 21:31:45 Candidiasis of vagina 56957463 B37.32 Discussed with patient the microscope examdextero ce Bates performed today on her vaginal discharge confirms she has a vaginal yeast infection. Advised vaginal yeast occurs due to an imbalance in the pH of her vagina. This can occur due to stress, high sugar intake..Tr eatment plan reviewed with client, advised to take Diflucan tablets as prescribed . 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 Urinary symptoms [id number] R39.9 Advised I will call her with results and advised how to down report for her urologiest Venereal d isease screening 651207025 Z11.3 Advised all office cultures sent out to the lab will take a few days to be resulted and results will be sent directly to her regular [facility] office. Advised she may see her lab results on her patient portal before I get a chance to look at it.Advised I will call her with result, advised I will not be able to leave a voice message if there is no patient identifier on her phone. [id number] BLANKA TAVERAS CNM [facility] [address] [address] 09/09/2022 18:31:01 09/09/2022 18:55:43 Venereal disease screening 010567205 Z11.3 [id number] BLANKA TAVERAS CNM [facility] [address] [place] [address] 09/15/2022 12:14:02 09/15/2022 13:58:28 Initial prescription of oral contraception [id number] Z30.011 Removal of subcutaneous contraceptive 986897592 Z30.46 Pain in pelvis 60587882 R10.2 [id number] Maria M Rahman CNM [facility] [address] [place] [address] 11/27/2022 17:54:48 11/27/2022 19:25:30 Urine test negative 337512494 Z32.02 Venereal d isease screening 778645096 Z11.3 Advised all office cultures sent out to the lab will take a few days to be resulted and results will be sent directly to her regular [facility] office. Advised she may see her lab results on her patient portal before the [facility] has had time to review them. Advised if any results are abnormal and need treatment her [facility] office will reach out to her for management . [id number] Maria Mdaniel Rahman CNM [facility] [address] [facility] [address] [place] [address] 04/10/2023 18:25:30 04/10/2023 22:41:49 Venereal disease screening 062979201 Z11.3 Advised all office cultures sent out to the lab will take a few days to be resulted and results will be sent directly to her regular [facility] office. Advise all blood work orders will be automatica lly sent to [facility]. Advised to go on line see which [facility] location is the most convenient for her and it is advisable to schedule a blood draw appointmen t to avoid prolonged waiting time at the Laboratory . Advised she may see her lab results on her patient portal before the [facility] has had time to review them. Advised if any results are abnormal and need treatment her [facility] office will reach out to her for management . Health Concerns Section Related Observation LastModified by Organization Detai ls LastModified Time None Recorded Concern Status LastModified by Organization Details LastModified Time None Recorded Advance Directives Directive None Recorded Payers Insurance Date Sequence Insurance Name Policy Number Policy Little Covered Member ID Little Member ID Guarantor Name 09/12/2022 1 [place] CASEY Guzman [id number] Megan Dominguez 09/12/2022 1 [place] Megan Dominguez [id number] Megan Dominguez 07/11/2023 1 [place] Megan Dominguez [id number] Megan Dominguez Notes Date Note Type Note Provider Name and Address Organization Details Recorded Time 08/20/2022 text/html [facility] Vaginal DischargeReported by PatientHPIFor associated symptoms, patient reportsvaginal itching,vaginal burning, andpain during intercourse(urinary frequency, discharge). For location, patient reportsvagina. For quality, patient reportswhite. For context, patient reportscurrent contraception: (nexplanon),occurs with urinary tract infection, andhistory of std/pid.ROS as noted in the [facility] Women s [facility]ours [facility] problem visit.NEW PATIENT [facility] issues.Last seen at about a month ago for a yeast infection.Reports she has had 2 recent yeast infectionsHere for evaluation and management of vaginal discharge with itching and irritation x a few days. No unusual vaginal odor. Has a chronic history of urinary frequency, voiding every 30 mins lower back pain, dysuria after voiding. Reports her symptoms today are the same symptoms she has had for a long time. 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 UA negative today. LMP: 08/20/22 Sexually activity: Yes Partner: Male # of sexual Partners: 1 with partner for 2 monthsShe is unsure if she had recent GC/chl testing done and Interested in re testing and have full Blood work STI done. Maria M Rahman CNM [address] [facility], [address] [place] [address], [phone], [facility] 08/21/2022 22:04:03 09/09/2022 text/html Pt states she was re exposed for trichomonas. Partner did not finish medication. Both were given 1 week of treatment BLANKA TAVERAS CNM [address] [facility], [address] [place] [address], [place], [address], [facility] 09/09/2022 18:56:36 09/15/2022 text/html Nexplanon removal and pelvic pain BLANKA TAVERAS CNM [address] [facility], [address] [place] [address], [place], [address], [facility] 09/16/2022 18:32:12 11/27/2022 text/html [facility] Vaginal DischargeReported by PatientHPIFor associated symptoms, patient reportsvaginal itching,vaginal burning, andpain during intercourse(urinary frequency, discharge). For location, patient reportsvagina. For quality, patient reportswhite. For context, patient reportscurrent contraception: (nexplanon),occurs with urinary tract infection, andhistory of std/pid.ROS as noted in the [facility] Women s After-Hours Care problem visit.[facility] issues.Here for repeat tric/gc/chl cultured due to pos Tric on 08/20/22.No vaginal symptoms and does not want a speculum exam but will consent to a vaginal swab 08/31/22 lab STI was neg.UA negative today. LMP: 08/20/22Sexually activity: YesPartner: Male# of sexual Partners: 1 with partner for 2 monthsShe is unsure if she had recent GC/chl testing done and Interested in re testing and have full Blood work STI done. Maria M Rahman CNM [address] [facility], [address] [place], [address], [facility] 11/27/2022 18:24:30 04/10/2023 text/html [facility] Vaginal DischargeReported by PatientHPIFor associated symptoms, patient reportsvaginal itching,vaginal burning, andpain during intercourse(urinary frequency, discharge). For location, patient reportsvagina. For quality, patient reportswhite. For severity, patient reportsmild. For context, patient reportscurrent contraception: (nexplanon),occurs with urinary tract infection, andhistory of std/pid. For modifying factors, patient reportsnothing gives reliefandnothing makes it worse.ROS as noted in the [facility] Women s After-Hours Care problem visit.[facility] see [facility] for [facility] issues. Women s After-Hours Care problem visit. Here for STI screening including bloodwork.reports increased white discharge & itching as well for the past few days Last seen client on 11/27/22 for STI testing. LMP: 03/28/23Sexually active YesAny new sexual partners in the past year noPartner MaleLast GC/Chl negative on 11/27/22 Maria M Rahman CNM [address] [facility], [address], [place], [address], [facility] 04/10/2023 18:47:30 OBGyn Episode No OBEpisode recorded.
--- OUTSIDE RECORDS SUMMARY | 2025-03-21 20:05 | XMS_ITS | Clinical Summary ---
Author Organization Formerly [facility] Address [address] [place] [address] Care Team Providers Care Food And Nutrition Services Assistant Name Role Phone Ivan Cunha MD Primary Care Provider [phone] Villa Stout APRN Unavailable [phone] Gilmer Dhillon MD Unavailable [phone] Allergies Active Allergy Reactions Criticality Noted Date Comments Lactose 08/09/2022 Shellfish Containing Products Shortness of breath,Swelling High 11/08/2024 Medications * This document contains information received from the source organization and may not represent a complete record from that organization. UNKNOWN TO PATIENT Take 2 puffs by mouth as needed. Inhaler, cannot remember the name Active Purelax 17 gram packet TAKE 17 G BY MOUTH IN THE MORNING. 30 packet 10/24/19 24 Active Additional Information Patient not taking.Reported on 03/18/2025 diazePAM (Valium) 5 mg tablet Take one tablet 2 hours prior to the procedure 1 tablet 11/18/19 Active Additional Information Patient not taking.Reported on 03/18/2025 magnesium oxide 400 mg magnesium capsuleIndicatio ns:Chronic migraine without aura without status migrainosus, not intractable Take 400 mg by mouth in the morning. 30 each 01/19/20 24 Active Additional Information Patient not taking.Reported on 03/18/2025 traZODone (DESYREL) 50 mg tabletIndication s:Psychophysiolo gical insomnia Take 1 tablet (50 mg total) by mouth nightly as needed for insomnia. 90 tablet 02/10/20 Active glycerin, ADULT, suppository Insert 1 suppository into the rectum daily as needed for constipation. 12 each 03/27/20 Active Additional Information Patient not taking.Reported on 03/18/2025 ergocalciferol (VITAMIN D2) 1,250 mcg (50,000 unit) capsuleIndicatio ns:Vitamin D deficiency Take 1 capsule (50,000 Units total) by mouth once a week. 12 capsule 07/20/19 Active Additional Information Patient not taking.Reported on 03/18/2025 ketotifen (Zaditor) 0.025 % (0.035 %) ophthalmic solution Administer 1 drop into both eyes in the morning and 1 drop before bedtime. 5 mL 2 08/20/19 Active Additional Information Patient not taking.Reported on 03/18/2025 EPINEPHrine (EPIPEN) 0.3 mg/0.3 mL injectionIndicat ions:Allergic rhinitis, unspecified seasonality, unspecified trigger Inject 0.3 mg into the muscle as needed for anaphylaxis (Anaphylaxis allergic reaction). 1 each 11/02/19 Active cholecalciferol, vitamin D3, (Vitamin D3) 25 mcg (1,000 unit) capsule Take 1,000 Units by mouth in the morning. Active dextromethorphan -guaifenesin (Tussin DM) 10-100 mg/5 mL liquid Take 5 mL by mouth 3 (three) times a day as needed (cough). 120 mL 12/04/19 Active Additional Information Patient not taking.Reported on 03/18/2025 levocetirizine (XYZAL) 5 mg tabletIndication s:Allergic rhinitis, unspecified seasonality, unspecified trigger TAKE 1 TABLET BY MOUTH EVERY DAY AT NIGHT 30 tablet 2 01/29/20 Active rimegepant 75 mg tablet,disintegr ating Take 75 mg by mouth every other day. 15 tablet 02/16/20 25 Active Additional Information Patient not taking.Reported on 03/18/2025 BIOTIN ORALIndications: Memory problem Take by mouth. Active cyanocobalamin, vitamin B-12, (VITAMIN B-12 ORAL)Indications :Memory problem Take by mouth. Active dicyclomine (BENTYL) 10 mg capsuleIndicatio ns:Cramp, abdominal Take 1 capsule (10 mg total) by mouth 4 (four) times a day as needed (abdominal pain or cramps). 30 capsule 1 03/18/20 25 025 Active riboflavin, vitamin B2, 400 mg tabletIndication s:Headache disorder Take 400 mg by mouth daily. 90 tablet 03/18/20 25 Active SUMAtriptan (IMITREX) 50 mg tabletIndication s:Chronic migraine without aura without status migrainosus, not intractable Take 1 tablet (50 mg total) by mouth once as needed for migraine for up to 9 doses. May repeat after 2 hours. 9 tablet 03/18/20 25 Active diclofenac sodium (VOLTAREN) 1 % gelIndications:N debbie pain Apply topically 4 (four) times a day. 200 g 1 03/18/20 25 Active fluticasone propionate (FLONASE) 50 mcg/actuation nasal sprayIndications :Allergic rhinitis, unspecified seasonality, unspecified trigger,Neck pain Administer 1 spray into each nostril in the morning. 16 g 3 03/18/20 25 Active azelastine (ASTELIN) 137 mcg (0.1 %) nasal sprayIndications :Allergic rhinitis, unspecified seasonality, unspecified trigger Administer 1 spray into each nostril 2 (two) times a day. Use in each nostril as directed 30 mL 12 03/18/20 25 Active famotidine (PEPCID) tabletIndication s:Abdominal bloating Take 1 tablet (20 mg total) by mouth 2 (two) times a day as needed for heartburn. 30 tablet 1 03/18/20 25 Active albuterol HFA 90 mcg/actuation inhalerIndicatio ns:Dyspnea on exertion,Chest tightness,Mild intermittent asthma without complication Inhale 2 puffs every 4 (four) hours as needed for wheezing or shortness of breath. 1 each 3 03/18/20 25 Active fluticasone HFA (FLOVENT HFA) 220 mcg/actuation inhalerIndicatio ns:Dyspnea on exertion,Chest tightness Inhale 2 puffs in the morning and 2 puffs before bedtime. If symptoms happening 2 days/week or 2 night/month. 1 each 03/18/20 25 Active albuterol HFA 90 mcg/actuation inhalerIndicatio ns:Mild intermittent asthma without complication Inhale 2 puffs every 4 (four) hours as needed for wheezing or shortness of breath. 1 each 3 05/21/20 24 025 Discontinu ed(Reorder ) montelukast (SINGULAIR) 10 mg tablet Take 1 tablet (10 mg total) by mouth nightly. 90 tablet 3 08/20/19 25 025 Discontinu ed(Therapy completed) metFORMIN (GLUCOPHAGE) 500 mg tablet Take 1 tablet (500 mg total) by mouth in the morning and 1 tablet (500 mg total) in the evening. Take with meals. 60 tablet 2 11/27/19 25 025 ciclopirox (PENLAC) 8 % solutionIndicati ons:Fungal nail infection Apply topically nightly. Apply over nail and surrounding skin. Apply daily over previous coat. After seven (7) days, may remove with alcohol and continue cycle. 6.6 mL 12/03/19 025 Additional Information Patient not taking.Reported on 12/30/2024 fluconazole (DIFLUCAN) 150 mg tabletIndication s:Vaginal discharge Take 1 tablet (150 mg total) by mouth once for 1 dose. 1 tablet 03/18/20 025 Active Problems Problem Noted Date Diagnosed Date Family history of arthritis 03/21/2025 Assessment & Plan (03/21/2025 9:28 AM EDT): #9 renal/musculoskeletal Headache disorder/migraines, family history of arthritis, neck pain, history of UTI, vitamin D deficiency Vitamin B2 to prevent migraines Voltaren gel for neck pain, since crooked hands in the family will check serology for rheumatoid Due to PTT elevation in the past and PE get ANDREA Avoid oral NSAIDs due to GI issues Tylenol as needed is okay Sumatriptan for migraines Family history of stroke 03/21/2025 Assessment & Plan (03/21/2025 9:26 AM EDT): 1 cardiovascular Dyspnea on exertion suspicion for reactive airway using a lot of albuterol, at history of tachycardia,family history of stroke, history of PE Should decrease the use of rescue inhaler, controller inhaler sent for persistent asthma Sleep medicine referral Lab Results Component Value Date LDLCALC 69 07/19/2024 Nail fungus 12/29/2024 Assessment & Plan (12/29/2024 8:56 PM EDT): Thickening likely due to fungal infection No h/o trauma Would try topic terbenefine (over the counter) Counseled that needs to be used onsistently ie 2-3x daily and for a protracted period of time (Ie 3 mo) jublia not likely covered And would try topical before po +/- nail cx Allergic rhinitis 10/28/2024 History of ear infections as a child 10/28/2024 Pain associated with defecation 02/06/2024 Assessment & Plan (02/06/2024 12:03 PM EDT): - Referral to Colorectal Surgery for further eval Rectal bleeding 02/06/2024 Assessment & Plan (02/06/2024 12:04 PM EDT): - Referral to Colorectal Surgery for further eval. Pt would like to see Colorectal Surgery first before considering colonoscopy. Advised pt she can discuss possible colonoscopy with Colorectal Surgery dept as well Alternating constipation and diarrhea 02/06/2024 Assessment & Plan (03/21/2025 9:20 AM EDT): 2. Gastrointestinal/ Vaginal discharge, history of BV and Radha, reported chlamydia history, left lower quadrant pain, abdominal bloating, alternating constipation and diarrhea, cramps, urinary urgency, history of UTI, history of endometriosis following the surgery had a [...] underlying constipation. Also suspect lower abdominal pain r/t to reported bowel habits. Pt advised to complete urine test prior to XR; testing ordered - Advised to avoid dairy Assessment & Plan (02/06/2024 12:12 PM EDT): - Abdominal XR to eval for suspected underlying constipation. Also suspect lower abdominal pain r/t to reported bowel habits. Pt advised to complete urine test prior to XR; testing ordered - Advised to avoid dairy Right lateral abdominal pain 01/19/2024 Assessment & Plan (01/19/2024 11:00 AM EDT): Asymptomatic today. The location of the pain was lateral chest wall between the 8th and 9th rib. No pain to palpation today. She completed anticoagulation for 3 months on 01/07 for provoked PE, D-dimer was negative and pain has has resolved. Of note had CT imgaging in September with 2mm kidney stone on the right. ACS, PE, dissection, pneumothorax, pericarditis, PNA r/o in ED. Will check RUQ u/s for sludge and kidney bladder ultrasound for reevaluation of the right kidney stone as sudden onset of pain with interval resolution best fits colic. At this time given normal D dimer do not think CTA is needed, can consider repeat imaging in near future. Chronic migraine without aur a without status migrainosus, not intractable 01/19/2024 Assessment & Plan (03/21/2025 9:23 AM EDT): #3 Neuropsychiatry Headache disorder, migraines, otalgia, adjustment disorder with anxiety depression, per patient was diagnosed with bipolar disorder had nightmares with Singulair [...] helps with IBS . TOPAMAX mood stabilizes, migraines, weight loss Release to patient: Immediate Per last note headaches are worsening. Sumatriptan has helped with her symptoms. Now that she is off of anticoagulation can also try naproxen. Magnesium for daily prophylaxis. Neurology referral given chronicity and severity. Assessment & Plan (01/19/2024 10:58 AM EDT): Headaches are worsening. Sumatriptan has helped with her symptoms. Now that she is off of anticoagulation can also try naproxen. Magnesium for daily prophylaxis. Neurology referral given chronicity and severity. PCOS (polycystic ovarian syndrome) 12/22/2023 Assessment & Plan (03/21/2025 9:16 AM EDT): 7. Endocrine/thyroid BMI 39, family history of diabetes, prediabetes history, and history of kidney stone, vitamin D deficiency Will get a vitamin D level repeat Lab Results Component Value Date TSH 1.52 07/19/2024 Lab Results Component Value Date HGBA1C 5.0 07/19/2024 Per last note - A1c: 5.4 (checked by Radiological Technician on 02/16) - She reports being prescribed Mounjaro and Ozempic by her Radiological Technician. Unsure why both were prescribed simultaneously. Patient to clarify with her Radiological Technician regarding the choice of medication, as both [...] Mounjaro and assess for any side effects. Assessment & Plan (02/18/2024 10:19 AM EDT): - A1c: 5.4 (checked by Radiological Technician on 02/16) - She reports being prescribed Mounjaro and Ozempic by her Radiological Technician. Unsure why both were prescribed simultaneously. Patient to clarify with her Radiological Technician regarding the choice of medication, as both [...] Mounjaro and assess for any side effects. History of pulmonary embolism 12/22/2023 Assessment & Plan (03/21/2025 9:11 AM EDT): 4. Pulmonary/Derm/ENT Throat pain history of PE allergic rhinitis, otalgia of both ears, pain with swallowing, dyspnea on exertion, chest tightness, possible persistent asthma normal intermittent, [...] for future surgeries and the need for pre-operative evaluations and possible prophylactic measures Assessment & Plan (02/18/2024 10:18 AM EDT): - She reports no current shortness of breath, chest pain, or exercise limitations. Continue to monitor for any recurrence of symptoms. Educated the patient on the increased risk for future surgeries and the need for pre-operative evaluations and possible prophylactic measures Assessment & Plan (01/19/2024 11:57 AM EDT): Thought to be provoked after surgery. Was seen in ED for pleuritic chest pain and had a negative D-dimer, normal EKG. Completed 3 months of Eliquis, discontinued today Assessment & Plan (12/22/2023 4:07 PM EDT): Patient recently underwent laparoscopic procedure for endometriosis on 10/05/2023. Developed worsening shortness of breath and right-sided chest pain and was admitted to [facility] 10/11/2023. Patient was found to have a PE on imaging during this time. Was started on heparin and discharged on Eliquis 10 mg twice daily 10/12/2023. Patient switched over to Eliquis 5 mg twice daily starting 10/19/2023 and to continue till January 01, 2024. Reports she stopped taking her Elliquis 7 days ago. Denied any increased bleeding. - Counseled on importance of Eliquis - Restart Eliquis, continue until completed course (roughly January 07) - Patient was scheduled follow-up in January Weight loss 12/22/2023 Assessment & Plan (12/22/2023 4:09 PM EDT): Patient with concern about weight gain and possible insulin resistance, counseled that serum glucose and hemoglobin A1c have been within normal limits, no evidence of diabetes at this time. Discussed the patient would be at elevated risk for diabetes given weight and family history. - Counseled on weight loss - Encourage exercise as tolerated, recommend 150 minutes/week. Encouraged resistance training given concern for insulin resistance. - Encouraged to keep food diary or use my fitness pal nasim - Agree with nutrition counseling - Counseled that she is at high risk for developing diabetes Pelvic pain in female 11/18/2023 Vaginal discharge 05/07/2023 Moderate episode of recurrent major depressive d isorder 04/04/2023 Assessment & Plan (02/10/2024 3:01 PM EDT): Psychological condition is improving with treatment. Continue current treatment regimen. Psychological condition will be reassessed in 3 months. Assessment & Plan (12/02/2023 9:49 AM EDT): Psychological condition is improving with treatment. Continue current treatment regimen. Psychological condition will be reassessed in 3 months. Assessment & Plan (11/04/2023 8:56 AM EDT): Psychological condition is improving with treatment. Continue current treatment regimen. Psychological condition will be reassessed in 3 months. PTSD (post-traumatic stress disorder) 04/04/2023 Assessment & Plan (02/10/2024 3:01 PM EDT): Psychological condition is improving with treatment. Continue current treatment regimen. Psychological condition will be reassessed in 3 months. Assessment & Plan (12/02/2023 9:50 AM EDT): Psychological condition is improving with treatment. Continue current treatment regimen. Psychological condition will be reassessed in 3 months. Assessment & Plan (11/04/2023 8:56 AM EDT): Psychological condition is improving with treatment. Continue current treatment regimen. Psychological condition will be reassessed in 3 months. Assessment & Plan (05/08/2023 3:55 PM EST): Psychological condition is unchanged. Continue current treatment regimen. Psychological condition will be reassessed at the next regular appointment. Assessment & Plan (04/04/2023 10:27 AM EDT): Psychological condition is newly identified. Continue current treatment regimen. Psychological condition will be reassessed at the next regular appointment. Mammogram abnormal 02/27/2023 Endometriosis of peritoneum 01/14/2023 History of myringotomy 12/06/2022 History of reduction mammoplasty 12/06/2022 Urine frequency 12/06/2022 Retroverted uterus 08/20/2022 Seasonal allergies 08/20/2022 Assessment & Plan (08/20/2024 10:34 AM EST): 19-year-old female patient seen today for recurrent allergy symptoms. She reports that she generally has year-round symptoms, but worse in the spring and summer months. She has been treated for allergies since childhood, and has tried several of the second-generation antihistamines without significant relief. She has never had allergy testing, and this is distressing to her. She would like to know what she is allergic to. Currently she is taking both Zyrtec once daily and Slime once daily, she is using her combination inhaler as needed, mostly when she has worsening symptoms, and is using albuterol once or twice a day. She has not tolerated nasal sprays previously, they bother her nose and cause additional itching. She has an upcoming visit with ENT scheduled in September. She is upset that she will not have allergy testing at this visit. I did recommend that she contact her insurance to see if they can recommend local phonograph cartridge assembler that are covered with her plan, and I did ask her to call those offices to see if they do skin prick testing. I advised that she choose 1 antihistamine, and we elected to continue with Zyrtec 10 mg and she will take this twice daily. I am also adding in montelukast 10 mg nightly. She does not want to take her Flovent inhaler daily, she is very concerned for thrush. She is using albuterol once to twice a day. Her lungs were clear on exam today with no wheezing. I think this is appropriate to continue with as needed albuterol use. Additionally, I recommended [id number] eyedrops, either Pataday or Zaditor. I did send in Zaditor, but reviewed with her that they may not be covered by her insurance and she may purchase [id number]. I did encourage her to keep the visit with ENT as scheduled in September. I asked her to update me in a few weeks as to how she is feeling and she is agreeable with this. Suicidal ideation 06/16/2022 Major depressive disorder, recurrent episode, se linnette 08/08/2021 Assessment & Plan (05/08/2023 3:55 PM EST): Psychological condition is unchanged. Continue current treatment regimen. Psychological condition will be reassessed at the next regular appointment. Assessment & Plan (04/04/2023 10:26 AM EDT): Psychological condition is newly identified. Medication changes per orders. Psychological condition will be reassessed at the next regular appointment. Chronic midline thoracic back pain 09/11/2020 Overview (12/06/2022): Added automatically from request for surgery [id number] Added automatically from request for surgery [id number] Asthma 04/10/2020 Resolved Problems Problem Noted Date Diagnosed Date Resolved Date IUD (intrauterine device) in place 11/29/2024 12/30/2024 Overview (11/29/2024): Mirena IUD placed in the OR on 11/11/2024 Labia minora hypertrophy 11/18/202303/2025 Assessment & Plan (03/28/2024 8:37 PM EDT): The patient has significant hypertrophy of the bilateral labia minora. She is symptomatic with irritation, rubbing, and discomfort. This is impacting her lifestyle more more. We discussed the risks and benefits of labioplasty surgery. She is very interested in this. This would be medically appropriate for the patient and as this would not be considered a purely cosmetic procedure at this time given the extent of her bilateral hypertrophy. I am in a place a case request for the surgery and we can start looking into an OR date and time. Additionally, I will reach out to her primary care physician to see if she has thoughts around anticoagulation following the procedure. The procedure would be very brief and the recovery would allow for early ambulation, and my thoughts is that she probably will not need anticoagulation but I would like to discuss treatment with her. Will start working on that as we work towards finding some OR time. Macromastia 09/11/2020 12/30/2022 Overview (12/06/2022): Added automatically from request for surgery [id number] Eczema 04/10/2020 12/30/2022 Encounters Date Type Department Care Team Description 03/18/2025 1:00 PM EDT Office Visit [facility] [address] [place] [address] Parker Peterson MD Throat pain (Primary Dx); Vaginal discharge; Headache [...] hepatitis B vaccination; PCOS (polycystic ovarian syndrome) 02/11/2025 Results Follow-Up [facility] [address] [place] [address] Villa Stout APRN US breast limited left 02/10/2025 2:00 PM EDT Ancillary Procedure [facility] [address] [place] [address] Villa Stout APRN Subareolar mass of left breast 01/03/2025 Results Follow-Up [facility] [address] [place] [address] Villa Stout APRN Vaginal Pathogen Panel by Ham Facer-Mediat ed Amplification (TMA) Symptomatic , Chlamydia trachomatis NAAT, Neisseria gonorrhea NAAT, POCT , urine 12/30/2024 10:00 AM EDT Office Visit [facility] [address] [place] [address] Villa Stout APRN Encounter for gynecological examination without abnormal finding (Primary Dx); Visit for screening for infections w/predomly sexual mode transmission; Vaginal discharge; Vaginal itching; Subareolar mass of left breast; test negative 12/29/2024 4:00 PM EDT Follow-Up [facility] [address] [place] [address] Spencer Beltran MD Postoperative examination (Primary Dx); Pelvic pain in female; Abnormal uterine bleeding; Endometriosis of peritoneum; PCOS (polycystic ovarian syndrome) 12/29/2024 9:10 AM EDT Office Visit [facility] [address] [place] [address] Ivan Cunha MD Levine, Susan F, MD Nail fungus (Primary Dx); PCOS (polycystic ovarian syndrome); Seasonal allergies 12/20/2024 Orders Only [facility] [address] [place] [id number] Spencer Beltran MD from Last 3 Months Immunizations Immunization Administration Dates Next Due Covid-19 Moderna Seasonal Va ccine (12y And Older) 08/04/2023 DTaP 01/28/2008, 5,02/20/2004,11/28,2003 DTaP, Unspecified 01/28/2008, 5,02/20/2004,11/28,2003 H1N1 Inj 05/05/2009 HPV, Quadrivalent 08/13/2017,01/20/2017 Hep A, 2 Dose 01/28/2008 Hep A, Unspecified 09/11/2015,01/28/2008 Hep B, Unspecified 02/20/2004, 4,2003,07/23 HepB-CpG 03/18/2025 HiB 01/01/2005, 4,2003,09/21 Hpv Vaccine 9-valent 08/13/2017,01/20/2017 IPV 01/28/2008, 4,2003,09/21 Influenza LAIV (Nasal) 07/08/2013,07/23/2012, Influenza, Injectable, Quadr ivalent, Preservative Free 08/09/2022,05/14/2021,05/24/2020,04/07,03/24/2018,04/23/2017 Influenza, Quadrivalent 08/09/2022,08/09,05/14/2021,05/14,05/24/2020,05/24/2020,04/07/2019 ,04/07/2019,03/24/2018,03/24/2018,06/2016,04/23/2017,03/30/2014 Influenza, Unspecified 09/11/2015 MMR 12/10/2006,07/23/2004 Meningococcal MCV4, Unspecified 08/31/2014 Meningococcal MCV4P 05/24/2020 PPD Test 08/17/2023 Pneumococcal Conjugate PCV-7 01/01/2005, 02/20/2004,2003,09/21 Tdap 08/31/2014 Varicella 12/10/2006,07/23/2004 Family History Medical History Relation Comments Alcohol abuse Father Arthritis Father Diabetes Father Drug abuse Father Hepatitis Father Stroke Maternal Grandmother Diabetes Mother Hypertension Mother Dementia Paternal Grandfather Colon cancer Neg Hx Esophageal cancer Neg Hx Stomach cancer Neg Hx Relation Status Comments Father Alive Maternal Grandmother Alive Mother Alive Paternal Grandfather Alive Social History Tobacco Use Types Packs/Day Years Used Date Smoking Tobacco: Never Passive Smoke Exposure: Never Smokeless Tobacco: Never Tobacco Cessation:Counseling Given: Not Answered Alcohol Use Standard Drinks/Week Comments Yes 0 (1 standard drink = 0.6 oz pur e alcohol) infrequent [facility] Utilities Answer Date Recorded In the past 12 months has th e electric, gas, oil, or water company [...] any time in the past 12 [facility], were you homeless or living in a snf (including now)? No 07/19/2024 Comments No Sex [...] No / Unsure 03/18/2025 1:02 PM EDT Last Filed Vital Signs Vital Sign Reading Time Taken Comments Blood Pressure 113/76 03/18/2025 1:06 PM EDT Pulse 83 03/18/2025 1:06 PM EDT Temperature 36.9 C (98.4 F) 03/18/2025 1:06 PM EDT Respiratory Rate 18 12/03/2024 12:19 PM EDT Oxygen Saturation 97% 03/18/2025 1:06 PM EDT Inhaled Oxygen Concentration - - Weight 100 kg (220 lb 14.4 oz) 03/18/2025 1:06 P M EDT Height 160 cm (5' 3 ) 03/18/2025 1:06 PM EDT Body Mass Index 39.13 03/18/2025 1:06 PM EDT Plan of Treatment Upcoming Encounters Date Type Department Care Team (Late st Contact Info) Description 04/07/2025 1:40 PM EDT Office Visit [facility] [address] [place] [address] Ivan Cunha MD [address] [place] [address] [place] [address] 04/07/2025 3:00 PM EDT Office Visit [facility] Department of Neurology [address] [place] [address] Dionisio Barnhart MD [address] [place] [address] 2025 12:40 PM EST Office Visit [facility] [address] [place] [address] Ivan Cunha MD [address] [place] [address] [place] [address] 01/02/2026 10:00 AM EDT [facility] Visit [facility] [address] [address] Villa Stout APRN [address] [place] [address] [place] [address] Health Maintenance Due Date Last Done Comments Pneumococcal Vaccine: Pediat rics (0 to 5 Years) and At-Risk Patients (6 to 49 Years) (1 of 2 - PCV) 2022 01/01/2005, 02/20/2004, 2003, Additional history exists Pap Smear 2024 DTaP,Tdap,and Td Vaccines (7 - Td or Tdap) 08/31/2024 08/31/2014, 01/28/2008, 01/28/2008, Additional history exists COVID-19 Vaccine (4 - 2024-2 6 season) 2025 08/04/2023, 08/03/2021, 07/06/2021 Influenza Vaccine (#1) 2025 , 08/09/2022, 08/09/2022, Additional history exists Chlamydia Screening 12/30/2025 12/30/2024, 11/11/2024, 03/09/2024, Additional history exists Zoster Vaccines (1 of 2) 2053 MMR Vaccines Completed 12/10/2006, 07/23/2004 Hepatitis A Vaccines Completed 09/11/2015, 01/28/2008, 01/28/2008 HPV Vaccines Completed 08/13/2017, 07/25, 01/20/2017, Additional history exists Meningococcal Vaccine Completed 05/24/2020, 015 HIV Screening Completed 12/30/2024, 07/0 01/2024, 02/04/2023, Additional history exists Hepatitis C Screening Completed 12/30/2024 , 12/29/2023, 02/04/2023, Additional history exists Hepatitis B Vaccines Completed 03/18/2025, 02/20/2004, 2003, Additional history exists Procedures Procedure Name Priority Date/Time Associated Diagnosis Comments US BREAST LIMITED LEFT Routine 02/10/2025 2:29 PM EDT Subareolar mass of left breast NEISSERIA GONORRHEA NAAT Routine 12/30/2024 11:07 AM EDT Visit for screening for infections w/predomly sexual mode transmission CHLAMYDIA TRACHOMATIS NAAT Routine 12/30/2024 11:07 AM EDT Visit for screening for infections w/predomly sexual mode transmission VAGINAL PATHOGEN PANEL BY TMA Routine 12/30/2024 11:07 AM EDT Visit for screening for infections w/predomly sexual mode transmission Vaginal discharge Vaginal itching NEISSERIA GONORRHOEAE/CHLAMYDIA TRACHOMATIS NAAT Routine 12/30/2024 11:07 AM EDT Visit for screening for infections w/predomly sexual mode transmission SYPHILIS SCREEN W/REFLEX TO CONFIRMATION Routine 12/30/2024 11:01 AM EDT Visit for screening for infections w/predomly sexual mode transmission HIV COMBO ANTIGEN/ANTIBODY Routine 12/30/2024 11:01 AM EDT Visit for screening for infections w/predomly sexual mode transmission HEPATITIS C ANTIBODY Routine 12/30/2024 11:01 AM EDT Visit for screening for infections w/predomly sexual mode transmission POCT , URINE Routine 12/30/2024 10:54 AM EDT test negative from Last 3 Months Results * US breast limited left (02/10/2025 2:29 PM EDT) Anatomical Region Laterality Modality Breast Left Ultrasound 02/10/2025 2:40 PM EDT Impressions 02/10/2025 9:26 PM EDT No sonographic evidence of malignancy. No significant interval change in size and morphology of the previously biopsied 1:00 periareolar 1.4 cm mass, as detailed above. BIRADS Category 2: Benign RECOMMENDATION: Patient asked about surgical excision options for this left breast 1:00 mass. Because of interval stability and benign pathology, surgical excision is not indicated at this time. Reminder to Patients and Legally Authorized Representatives: Language in this report is designed for medical communication with other treating physicians and clinical practitioners. Please speak with your provider(s) about any questions or concerns related to the content of this report. Mihir Fong MD AF^0 [facility] [address] [place], [place] [address] Narrative 02/10/2025 9:26 PM EDT Exam: Limited ultrasound evaluation of the left breast. CLINICAL DATA/INDICATION: US BREAST LIMITED LEFT 02/10/2025 2:13 PM Patient : 2005 HISTORY: 19-year-old woman with a left breast upper outer anterior depth mass. Follow-up imaging. This mass is previously biopsied. Clinical note reviewed: small mobile lump 2:00 subareolar , check for any changes, Subareolar mass of left breast. History of reduction mammoplasty. Breast, LT breast RA 1:00 , core needle biopsy for mass: -Fragments of fibroadenoma. -Microcalcifications are not identified. Comparison: Prior breast imaging in 2022, 2023 Additional history: eft: small mobile lump 2:00 subareolar , check for any changes N63.42 Unspecified lump in left breast, subareolar FINDINGS: Upper outer left breast was evaluated between 12:00 and 2:00. Special attention was paid to the clinical area of concern as reported. Real-time sonographic evaluation was also performed by the radiologist. No sonographic evidence of malignancy. Previously biopsied 1:00 periareolar 1.4 mass with an associated biopsy marker clip is without significant interval change in size and morphology. This mass measured up to 1.3 cm in January 2023. us Villa Stout ASSEMBLER MECHANICAL ORDNANCE IMG BI PROCEDURES Final Res ult * (ABNORMAL) Vaginal Pathogen Panel by Ham Facer-Mediated Amplification (TMA) Symptomatic (12/30/2024 11:07 AM EDT) Bacterial Vaginosis, RNA Positive(A) Negative 12/31/2024 10:14 AM EDT [facility] Radha glabrata, RNA Negative Negative 12/31/2024 10:14 AM EDT [facility] Radha species, RNA Negative Negative 12/31/2024 10:14 AM EDT [facility] Trichomonas vaginalis RNA Negative Negative 12/31/2024 10:14 AM EDT [facility] Swab Vaginal structure / Unknown Non-blood Collection / Unknown 12/30/2024 11:07 AM EDT 12/30/2024 3:08 PM EDT Narrative [facility] - 12/31/2024 10:14 AM EDT This test detects Trichomonas vaginalis, Radha glabrata, and other Radha species (C. albicans, C. parapsilosis, C. dubliniensis, and C. tropicalis). The assay does not differentiate among organisms in the Radha species group. For Bacterial vaginosis, a single qualitative result is determined based on relative amounts of the following target organisms: Lactobacillus (L. gasseri, L. crispatus, and L. jensenii), Gardnerella vaginalis, and Atopobium vaginae. This assay does not report individual organisms. Results should be interpreted in conjunction with other clinical data. This test has not been validated for use with specimens collected by patients at home. This test is intended for medical purposes only and is not valid for the evaluation of suspected sexual abuse or for other forensic purposes. A negative result does not preclude a possible infection. Villa Stout APRN LAB MICRO - GENERAL ORDERAB LES NO STAT Final Result [facility] [address] [place] [address], * Neisseria gonorrhea NAAT (12/30/2024 11:07 AM EDT) Neisseria gonorrhoeae ribosomal RNA Negative Negative 12/31/2024 12:29 PM EDT [facility] Comment:Specimen is presumpt ively negative for Neisseria gonorrhoeae ribosomal RNA (rRNA). A negative result does not preclude the presence of a Neisseria gonorrhoeae infection because results are dependent on adequate specimen collection, absence of inhibitors, and sufficient rRNA to be detected. Swab Vaginal structure / Unknown Non-blood Collection / Unknown 12/30/2024 11:07 AM EDT 12/30/2024 3:08 PM EDT [facility] - 12/31/2024 12:29 PM EDT The Aptima Combo 2 Assay is a second-generation nucleic acid amplification test (NAAT) that utilizes target capture, Ham Facer-Mediated Amplification (TMA ), and Dual Kinetic Assay (DKA) technologies for the qualitative detection and differentiation of ribosomal RNA (rRNA) from Chlamydia trachomatis (CT) and / or Neisseria gonorrhoeae (GC). us Villa Stout APRN LAB MICROBIOLOGY - GENERAL ORDERABLES Final Result Performing Organization Address City/[facility]/ZIP Co de Phone Number [facility] [address] [place] [address], * Chlamydia trachomatis NAAT (12/30/2024 11:07 AM EDT) Chlamydia trachomatis ribosomal RNA Negative Negative 12/31/2024 12:29 PM EDT [facility] Comment:Specimen is presumpt ively negative for Chlamydia trachomatis ribosomal RNA (rRNA). A negative result does not preclude the presence of a Chlamydia trachomatis infection because results are dependent on adequate specimen collection, absence of inhibitors, and sufficient rRNA to be detected. Swab Vaginal structure / Unknown Non-blood Collection / Unknown 12/30/2024 11:07 AM EDT 12/30/2024 3:08 PM EDT [facility] - 12/31/2024 12:29 PM EDT The Aptima Combo 2 Assay is a second-generation nucleic acid amplification test (NAAT) that utilizes target capture, Ham Facer-Mediated Amplification (TMA ), and Dual Kinetic Assay (DKA) technologies for the qualitative detection and differentiation of ribosomal RNA (rRNA) from Chlamydia trachomatis (CT) and / or Neisseria gonorrhoeae (GC). us Villa Stout APRN LAB MICROBIOLOGY - GENERAL ORDERABLES Final Result Performing Organization Address City/[facility]/ZIP Co de Phone Number [facility] [address] [place] [address], [place] [phone] * Syphilis Screen w/Reflex to Confirmation (12/30/2024 11:01 AM EDT) Syphilis Screen Nonreactive Nonreactive 12/30/2024 4:06 PM EDT [facility] Blood Venous blood specimen / Unknown Venipuncture / Unknown 12/30/2024 11:01 AM EDT 12/30/2024 11:01 AM EDT Villa Stout APRN LAB BLOOD ORDERABLES Final Result [facility] [address] [place] [address], * HIV combo antigen/antibody (12/30/2024 11:01 AM EDT) HIV Combo AB/AG Negative Negative 4:05 PM EDT [facility] Comment: All HIV-negative individuals are eligible for HIV PrEP (Pre-Exposure Prophylaxis), a safe and effective medication to prevent HIV infection. Talk to your [facility] Provider about PrEP, or contact the [facility] PrEP Navigator Amelia Zepeda at [phone]. Blood Venous blood specimen / Unknown Venipuncture / Unknown 12/30/2024 11:01 AM EDT 12/30/2024 11:01 AM EDT Narrative [facility] - 12/30/2024 4:05 PM EDT This test is a 4th generation HIV Antigen-Antibody Combination assay, using a chemiluminescent microparticle immunoassay, for the simultaneous qualitative detection of human immuno- deficiency virus (HIV) p24 antigen and antibodies to HIV type 1 (HIV-1) and/or HIV type 2 (HIV-2) in human serum or plasma. The [employer] HIV Ag/Ab Combo assay is intended to be used as an aid in the diagnosis of HIV-1 and/or HIV-2 infection, including acute or primary HIV-1 infection. Initially-positive tests are repeated in duplicate. Repeat-positive tests will be confirmed for HIV by a HIV-1/HIV-2 rapid supplemental/ differentiation antibody assay. This testing algorithm is in line with the current CDC recommendations. Villa Stout ASSEMBLER MECHANICAL ORDNANCE LAB BLOOD ORDERABLES NO STA T Final Result Performing Organization Address City/[facility]/ZIP Co de Phone Number [facility] [address] [place] [address], [place] [phone] * Hepatitis C antibody (12/30/2024 11:01 AM EDT) Hepatitis C Antibody Negative Negative 12/30/2024 4:06 PM EDT [facility] Comment:Anti-HCV (HCVAb) Not Detected. Patient is presumed not to be infected with HCV. The possibility of exposure to HCV cannot be excluded. Blood Venous blood specimen / Unknown Venipuncture / Unknown 12/30/2024 11:01 AM EDT 12/30/2024 11:01 AM EDT Villa A Girish FOOTE LAB BLOOD ORDERABLES NO STA T Final Result Performing Organization Address City/[facility] Co de Phone Number [facility] [address] [place] [address], [place] [phone] * POCT , urine (12/30/2024 10:54 AM EDT) Preg Test, Ur Negative Negative Test Device Lot # [id number] Test Device Exp. date 05/11/26 Internal Control Pass (Y/N) Yes Urine 12/30/2024 10:5 4 AM EDT Villaken Stout ASSEMBLER MECHANICAL ORDNANCE POINT OF CARE TEST ORDERABL ES Final Result from Last 3 Months Insurance MEDICAID [id number] () MEDICAID [facility] Advance Directives For more information, please contact: [phone] Documents on File Type Date Recorded Patient Tool Machine Setup Operator Expl anation Advance Directives 11/17/2024 8:51 AM Advance Directives 10/09/2023 1:54 PM Care Teams Food And Nutrition Services Assistant Relationship Specialty Start Date End Date Ivan Cunha MD [address] [place] [address] [place] [address] PCP - General Internal Medicine 12/30/22 Villa Stout APRN [address] [place] [phone] Advanced Nurse Practitioner Obstetrics and Gynecology 02/17/23 Gilmer Dhillon MD [address] [place] [address] [address] Referring Physician Obstetrics and Gynecology 10/29/23
--- OUTSIDE RECORDS SUMMARY | 2025-03-21 20:05 | XMS_ITS | Encounter Summary ---
Author Organization [facility] Address [address] [place] [address] Care Team Providers Care Oil Well Engineer Name Role Phone Ivan Cunha MD Primary Care Provider [phone] Villa Stout APRN Unavailable [phone] Gilmer Dhillon MD Unavailable [phone] Encounter Details Date Type Department Care Team (Late st Contact Info) Description 12/02/2024 Orders Only [facility] Department of Internal Medicine [address] [place], [place] [phone] Ivan Cunha MD [address] [facility] [place] [address] Fungal nail infection (Primary Dx) Social History Tobacco Use Types Packs/Day Years Used Date Smoking Tobacco: Never Passive Smoke Exposure: Never Smokeless Tobacco: Never Alcohol Use Standard Drinks/Week Comments Yes 0 (1 standard drink = 0.6 oz pur e alcohol) infrequent [facility] Utilities Answer Date Recorded In the past 12 months has [employer] electric, gas, oil, or water company threatened to shut off services in your home? Yes 07/19/2024 Overall Financial Resource Strain (CARDIA) Answe r Date Recorded How hard is it for you to pa y for the very basics like food, housing, medical care, and heating? Somewhat hard 07/19/2024 PHQ-2 Answer Date Recorded PHQ-2 Score 2 07/19/2024 Hunger Vital Sign Answer Date Recorded Within [...] any time in the past 12 m onths, were you homeless or living in a jail (including now)? No 07/19/2024 Comments No Sex [...] suspected to have Coronavirus/COVID-19? No / Unsure 12/03/2024 9:40 AM EDT documented as of this encounter Plan of Treatment Upcoming Encounters Date Type Department Care Team (Late st Contact Info) Description 04/07/2025 1:40 PM EDT Office Visit [facility] Department of Internal Medicine [address] [place] [address] Ivan Cunha MD [address] [facility] [place] [address] 04/07/2025 3:00 PM EDT Office Visit [facility] Department of Neurology [address] [phone] Dionisio Barnhart MD [address] [place] [address] 2025 12:40 PM EST Office Visit [facility] of Internal Medicine [address] [place] [address] Ivan Cunha MD [address] [place] [address] [place] [address] 01/02/2026 10:00 AM EDT Office Visit [facility] [place] [address] [facility] [address] Villa Stout APRN [address] [facility] [place] [address] documented as of this encounter Visit Diagnoses Diagnosis Fungal nail infection- Primary documented in this encounter Additional Health Concerns Assessment Noted Time PHQ-9 Depression Total Score: 17 024 11:26 AM EDT documented as of this encounter Care Teams Oil Well Engineer Relationship Specialty Start Date End Date Ivan Cunha MD [address] [place] [address] [place] [address] PCP - General Internal Medicine 12/30/22 Villa Stout APRN [facility] [address] [phone] Advanced Nurse Practitioner Obstetrics and Gynecology 02/17/23 Gilmer Dhillon MD [address] [place], [place] [address] [address] Referring Physician Obstetrics and Gynecology 10/29/23 documented as of this encounter
--- OUTSIDE RECORDS SUMMARY | 2025-03-21 20:05 | XMS_ITS | Encounter Summary ---
Author Organization [facility] Address [address] [place] [address] Care Team Providers Care Labor Training Manager Name Role Phone Lacey Miller MD Primary Care Provider [phone] Valentina Saldaña PhD Unavailable Lillian Lanier MD Primary Care Provider [phone] Reason for Visit * Reason Comments Medication Refill Encounter Details Date Type Department Care Team ([facility] Contact Info) Description 09/12/2018 Refill [facility] Primary Care [address] [place] 1[address] Floor [place], [place] [id number] Lacey Miller MD [address] [place] [phone] Low vitamin D level (Primary Dx) Social History Tobacco Use Types Packs/Day Years Used Date Smoking Tobacco: Never Smokeless Tobacco: Never Alcohol Use Standard Drinks/Week Comments Not Asked 0 (1 standard drink = 0.6 oz pur e alcohol) Comments No Sex and Gender Information Value Date Recorded Sex Assigned at Female 05/01/2022 1:06 PM EST Legal Sex Female 2:19 AM EST Gender Identity Female 05/01/2022 1:06 PM EST Sexual Orientation Not on file documented as of this encounter Plan of Treatment Not on file documented as of this encounter Visit Diagnoses Diagnosis Low vitamin D level- Primary documented in this encounter Care Teams Labor Training Manager Relationship Specialty Start Date End Date Lacey Miller MD [address] [place] [address] PCP - General 02/20/16 10/09/23 Lillian Lanier MD [address] [facility] [address] [place] [address] PCP - General 10/10/23 Valentina Saldaña, PhD [address] [place] [address] Psychologist Psychology 05/22/21 documented as of this encounter
--- OUTSIDE RECORDS SUMMARY | 2025-03-21 20:05 | XMS_ITS ---
Author Name [facility] Organization Unknown Results Test Name/Text Value Interpretation Date Range Source T vaginalis rRNA Spec Ql BRYANNA+probe NOT DETECTED Normal 02/09/2025 - [facility] N gonorrhoea rRNA Spec Ql BRYANNA+probe NOT DETECTED Normal 02/09/2025 - [facility] BV bacteria rRNA Vag Ql BRYANNA+probe NEGATIVE Normal 02/09/2025 - [facility] C trach rRNA Spec Ql BRYANNA+probe NOT DETECTED Normal 02/09/2025 - [facility] Radha rRNA Vag Ql Probe DETECTED Abnormal 02/09/2025 - [facility] C glabrata RNA Vag Ql BRYANNA+probe NOT DETECTED Normal 02/09/2025 - [facility] Bacteria Ur Cult SEE NOTE 01/02/2025 [facility] CHLAMYDIA TRACHOMATIS, NAAT Negative 12/30/2024 - [facility] NEISSERIA GONORRHOEAE RIBOSOMAL RNA Negative 12/30/2024 - [facility] TRICHOMONAS VAGINALIS RNA Negative 12/30/2024 - [facility] RADHA SPECIES RNA Negative 12/30/2024 - [facility] BACTERIAL VAGINOSIS RNA Positive Abnormal 12/30/2024 - [facility] RADHA GLABRATA RNA Negative 12/30/2024 - [facility] HEPATITIS C ANTIBODY (IA5) Negative 12/30/2024 - [facility] SYPHILIS SCREEN Nonreactive 12/30/2024 - [facility] HIV 1+2 AB + HIV1 P24 AG ([facility]) IN SERUM BY IMMUNOASSAY Negative 12/30/2024 - [facility] CHLAMYDIA TRACHOMATIS, NAAT Negative 11/11/2024 - [facility] NEISSERIA GONORRHOEAE RIBOSOMAL RNA Negative 11/11/2024 - [facility] ALLERGEN, ANIMAL, DOG DANDER IGE 5.61 kU/L Above high normal 10/28/2024 - [facility] ALLERGEN, GRASS, LORI GRASS IGE 0.4 kU/L Above high normal 10/28/2024 - [facility] ALLERGEN, TREE, WHITE MULBERRY TREE IGE <0.10 10/28/2024 - [facility] ALLERGEN, ANIMAL, CAT DANDER IGE 36.6 kU/L Above high normal 10/28/2024 - [facility] ALLERGEN, WEED, MUGWORT IGE <0.10 10/28/2024 - [facility] ALLERGEN, FUNGI/MOLD, M. RACEMOSUS IGE <0.10 10/28/2024 - [facility] ALLERGEN, WEED, SHEEP SORREL IGE <0.10 10/28/2024 - [facility] ALLERGEN, TREE, [place] TREE IGE <0.10 10/28/2024 - [facility] ALLERGEN, FUNGI/MOLD, HORMODENDRUM IGE <0.10 10/28/2024 - [facility] ALLERGEN, GRASS, BERMUDA GRASS IGE 0.18 kU/L 10/28/2024 - [facility] ALLERGEN, INSECT, COCKROACH, ARABIC IGE 3.6 kU/L Above high normal 10/28/2024 - [facility] ALLERGEN, TREE, [place] TREE IGE <0.10 10/28/2024 - [facility] ALLERGEN, TREE, [place] TREE IGE <0.10 10/28/2024 - [facility] ALLERGEN ANIMAL MOUSE EPITHELIUM IGE <0.10 10/28/2024 - [facility] IMMUNOGLOBULIN E 134.0 kU/L 10/28/2024 - [facility] ALLERGEN, TREE, [place] TREE IGE <0.10 10/28/2024 - [facility] ALLERGEN, TREE, BOX ELDER/MAPLE TREE IGE 0.1 kU/L 10/28/2024 - [facility] ALLERGEN, TREE, [place] TREE IGE <0.10 10/28/2024 - [facility] ALLERGEN, MITES, D. FARINAE IGE 3.68 kU/L Above high normal 10/28/2024 - [facility] ALLERGEN, FUNGI/MOLD, A. ALTERNATA IGE <0.10 10/28/2024 - [facility] ALLERGEN, WEED, COMMON/SHORT RAGWEED IGE 0.29 kU/L 10/28/2024 - [facility] ALLERGEN, FUNGI/MOLD, A. FUMIGATUS IGE <0.10 10/28/2024 - [facility] ALLERGEN, TREE, BIRCH TREE IGE <0.10 10/28/2024 - [facility] ALLERGEN, TREE, WHITE GIANNI TREE IGE <0.10 10/28/2024 - [facility] ALLERGEN, FUNGI/MOLD, P. NOTATUM IGE <0.10 10/28/2024 - [facility] ALLERGEN, MITES, D. PTERONYSSINUS IGE 2.39 kU/L Above high normal 10/28/2024 - [facility] ALLERGEN, WEED, PIGWEED IGE <0.10 10/28/2024 - [facility] ALLERGEN, TREE, [place] TREE IGE <0.10 10/28/2024 - [facility] ALLERGEN, INTERP, IMMUNOCAP SCORE IGE See Note 10/28/2024 [facility] ALLERGEN, FOOD, RICE IGE <0.10 10/28/2024 - [facility] ALLERGEN, FOOD, ORANGE IGE <0.10 10/28/2024 - [facility] ALLERGEN, FOOD, EGG WHITE IGE <0.10 10/28/2024 - [facility] ALLERGEN, FOOD, TOMATO IGE <0.10 10/28/2024 - [facility] ALLERGEN, FOOD, CRAB IGE 7.22 kU/L Above high normal 10/28/2024 - [facility] ALLERGEN, FOOD, CABBAGE IGE <0.10 10/28/2024 - [facility] ALLERGEN, FOOD, BARLEY IGE <0.10 10/28/2024 - [facility] ALLERGEN, FOOD, TUNA IGE <0.10 10/28/2024 - [facility] ALLERGEN, FOOD, CODFISH IGE <0.10 10/28/2024 - [facility] ALLERGEN, FOOD, POTATO IGE <0.10 10/28/2024 - [facility] ALLERGEN, FOOD, SOYBEAN IGE <0.10 10/28/2024 - [facility] ALLERGEN, FOOD, BEEF IGE <0.10 10/28/2024 - [facility] ALLERGEN, FOOD, CHICKEN IGE 0.24 kU/L 10/28/2024 - [facility] ALLERGEN, FOOD, PEPPER C. ANNUUM IGE <0.10 10/28/2024 - [facility] ALLERGEN, FOOD, RYE IGE <0.10 10/28/2024 - [facility] ALLERGEN, FOOD, LETTUCE IGE <0.10 10/28/2024 - [facility] ALLERGEN, FOOD, CORN IGE <0.10 10/28/2024 - [facility] ALLERGEN, FOOD, PORK IGE <0.10 10/28/2024 - [facility] ALLERGEN, FOOD, SHRIMP IGE 9.75 kU/L Above high normal 10/28/2024 - [facility] ALLERGEN, FOOD, CARROT IGE <0.10 10/28/2024 - [facility] ALLERGEN, FOOD, OAT IGE <0.10 10/28/2024 - [facility] ALLERGEN, FOOD, MILK (COW) IGE <0.10 10/28/2024 - [facility] ALLERGEN, FOOD, PEANUT IGE <0.10 10/28/2024 - [facility] ALLERGEN, FOOD, GRAPE IGE <0.10 10/28/2024 - [facility] ALLERGEN, FOOD, [place] IGE <0.10 10/28/2024 - [facility] ALLERGEN, FOOD, WHEAT IGE <0.10 10/28/2024 - [facility] RBC >50 Abnormal 09/12/2024 0 - 2 [facility] UROBILINOGEN, URINE 1.0 EU/dL Normal 09/12/2024 0.2 - 1 [facility] KETONES URINE Trace Abnormal 09/12/2024 - [facility] PROTEIN QUAL 100.0 mg/dL Abnormal 09/12/2024 - [facility] CLARITY OF URINE Cloudy Abnormal 09/12/2024 - [facility] BILIRUBIN, URINE Negative Normal 09/12/2024 - [facility] NITRITE Negative Normal 09/12/2024 - [facility] SPECIFIC GRAVITY >=1.03 Above high normal 09/12/2024 - [facility] PH OF URINE 7.5 Normal 09/12/2024 5 - 8 [facility] EPITHELIAL CELLS None Seen Normal 09/12/2024 - [facility] WBC >50 Abnormal 09/12/2024 0 - 5 [facility] LEUKOCYTE ESTERASE Moderate Abnormal 09/12/2024 - [facility] SYSMEX CASTS 0-2 Normal 09/12/2024 - [facility] GLUCOSE QUAL Negative Normal 09/12/2024 - [facility] COLOR OF URINE Yellow Normal 09/12/2024 - [facility] BACTERIA Few Abnormal 09/12/2024 - [facility] HEMOGLOBIN, URINE Large Abnormal 09/12/2024 - [facility] LIPASE 20.0 U/L Normal 2024 8 - 51 [facility] CALCIUM, TOTAL 8.6 mg/dL Normal 2024 8.4 - 10.2 [facility] ANION GAP 8.0 mmol/L Normal 2024 3 - 11 [facility] SODIUM 139.0 mmol/L Normal 2024 137 - 144 [facility] POTASSIUM Normal 2024 [facility] BICARBONATE 21.0 mmol/L Below low normal 2024 23 - 32 [facility] GLUCOSE 87.0 mg/dL Normal 2024 70 - 200 [facility] CHLORIDE 110.0 mmol/L Normal 2024 100 - 111 [facility] GLOMERULAR FILTRATION RATE ML/MIN/1.73 SQ M.PREDICTED 93.0 mL/min/1.73m*2 Normal 2024 60 - [facility] UREA NITROGEN 16.0 mg/dL Normal 2024 8 - 24 [facility] CREATININE 0.9 mg/dL Normal 2024 0.6 - 1.2 [facility] PROTEIN TOTAL Normal 2024 [facility] ALKALINE PHOSPHATASE 75.0 U/L Normal 2024 39 - 113 [facility] AST (SGOT) Normal 2024 [facility] BILIRUBIN, TOTAL 0.5 mg/dL Normal 2024 0.1 - 1.2 [facility] ALT (SGPT) 21.0 U/L Normal 2024 8 - 39 [facility] BILIRUBIN, DIRECT Normal 2024 [facility] ALBUMIN, AUTOMATED 4.2 g/dL Normal 2024 3.8 - 5.3 [facility] MCHC 32.0 g/dL Normal 2024 32 - 36 [facility] NEUTROPHIL % 67.0 % Normal 2024 40 - [address] [facility] [address] 0.9 10*3/uL Above high normal 2024 0.2 - 0.8 [facility] MONOCYTE % 11.0 % Normal 2024 4 - 12 [facility] EOSINOPHIL % 0.0 % Normal 2024 0 - 6 [facility] IMMATURE GRANULOCYTE % 1.0 % Above high normal 2024 0 - 0.[address] [facility] [address] 1.7 10*3/uL Normal 2024 0.7 - 4.5 [facility] PLATELET COUNT 243.0 10*3/uL Normal 2024 150 - [address] [facility] [address] 0.0 10*3/uL Normal 2024 0 - 0.3 [facility] HEMOGLOBIN 12.7 g/dL Normal 2024 12 - 16 [facility] HEMATOCRIT 39.7 % Normal 2024 35 - [address] [facility] [address] 5.6 10*3/uL Normal 2024 1.4 - 6.3 [facility] BASOPHILS % 0.4 % Normal 2024 0 - 2 [facility] AUTO NRBC % 0.0 % Normal 2024 0 - 0 [facility] LYMPHOCYTE % 20.6 % Normal 2024 20 - 50 [facility] MCV 90.2 fL Normal 2024 80 - 100 [facility] RBC DISTRIBUTION WIDTH 13.3 % Normal 2024 11.6 - 14.8 [facility] WHITE CELL COUNT 8.4 10*3/uL Normal 2024 3.6 - 11 [facility] MCH 28.9 pg Normal 2024 26 - 34 [facility] RED CELL COUNT 4.4 10*6/ L Normal 2024 3.8 - 5.[address] [facility] [address] 0.0 10*3/uL Normal 2024 0 - 0. 2 [facility] INFLUENZA B PCR (CEPHEID) Not Detected Normal 2024 [facility] RSV PCR (CEPHEID) Not Detected Normal 2024 [facility] INFLUENZA A PCR (CEPHEID) Not Detected Normal 2024 [facility] SARS-COV-2 PCR (CEPHEID) Negative Normal 2024 [facility] GLUCOSE QUAL Negative Normal 2024 - [facility] PROTEIN QUAL Trace Normal 2024 - [facility] HEMOGLOBIN, URINE Negative Normal 2024 - [facility] WBC 6-10 Abnormal 2024 0 - 5 [facility] BILIRUBIN, URINE Negative Normal 2024 - [facility] COLOR OF URINE Dark yellow Normal 2024 - [facility] UROBILINOGEN, URINE 1.0 EU/dL Normal 2024 0.2 - 1 [facility] PH OF URINE 6.0 Normal 2024 5 - 8 [facility] NITRITE Negative Normal 2024 - [facility] KETONES URINE Trace Abnormal 2024 - [facility] EPITHELIAL CELLS Moderate Abnormal 2024 - [facility] SYSMEX CASTS 0-2 Normal 2024 - [facility] SPECIFIC GRAVITY >=1.03 Above high normal 2024 - [facility] CLARITY OF URINE Clear Normal 2024 - [facility] BACTERIA Moderate Abnormal 2024 - [facility] LEUKOCYTE ESTERASE Small Abnormal 2024 - [facility] RBC 3-5 Abnormal 2024 0 - 2 [facility] VITAMIN B12 203.0 pg/mL Normal 07/19/2024 [facility] VITAMIN D, 25H 8.0 ng/mL Below low normal 07/19/2024 - [facility] THYROID STIM HORMONE 1.52 uIU/mL Normal 07/19/2024 0.35 - 4.94 [facility] CALCIUM, TOTAL 9.7 mg/dL Normal 07/19/2024 8.4 - 10.2 [facility] PROTEIN TOTAL 7.0 g/dL Normal 07/19/2024 6.2 - 8.1 [facility] CREATININE 0.6 mg/dL Normal 07/19/2024 0.6 - 1.2 [facility] UREA NITROGEN 13.0 mg/dL Normal 07/19/2024 8 - 24 [facility] GLOMERULAR FILTRATION RATE ML/MIN/1.73 SQ M.PREDICTED 132.0 mL/min/1.73m*2 Normal 07/19/2024 60 - [facility] AST (SGOT) 17.0 U/L Normal 07/19/2024 17 - 35 [facility] BICARBONATE 25.0 mmol/L Normal 07/19/2024 23 - 32 [facility] ALT (SGPT) 22.0 U/L Normal 07/19/2024 8 - 39 [facility] ANION GAP 7.0 mmol/L Normal 07/19/2024 3 - 11 [facility] GLUCOSE 83.0 mg/dL Normal 07/19/2024 70 - 200 [facility] BILIRUBIN, TOTAL 0.3 mg/dL Normal 07/19/2024 0.1 - 1.2 [facility] SODIUM 139.0 mmol/L Normal 07/19/2024 137 - 144 [facility] POTASSIUM 4.8 mmol/L Normal 07/19/2024 3.6 - 5.1 [facility] ALKALINE PHOSPHATASE 100.0 U/L Normal 07/19/2024 39 - 113 [facility] ALBUMIN, AUTOMATED 4.4 g/dL Normal 07/19/2024 3.8 - 5.3 [facility] CHLORIDE 107.0 mmol/L Normal 07/19/2024 100 - 111 [facility] FASTING? Yes Normal 07/19/2024 [facility] CHOLESTEROL, HDL 34.0 mg/dL Normal 07/19/2024 [facility] CHOLESTEROL, TOTAL 125.0 mg/dL Normal 07/19/2024 [facility] TRIGLYCERIDE 110.0 mg/dL Normal 07/19/2024 [facility] LDL CHOLESTEROL FRIEDWALD CALC 69.0 mg/dL Normal 07/19/2024 [facility] HEMATOCRIT 41.7 % Normal 07/19/2024 35 - 47 [facility] PLATELET COUNT 288.0 10*3/uL Normal 07/19/2024 150 - 440 [facility] MONOCYTE % 8.6 % Normal 07/19/2024 4 - 12 [facility] HEMOGLOBIN 13.2 g/dL Normal 07/19/2024 12 - [address] [facility] [address] 0.0 10*3/uL Normal 07/19/2024 0 - 0. 2 [facility] AUTO NRBC % 0.0 % Normal 07/19/2024 0 - 0 [facility] BASOPHILS % 0.4 % Normal 07/19/2024 0 - [address] [facility] [address] 0.3 10*3/uL Normal 07/19/2024 0 - 0.[address] [facility] [address] 5.0 10*3/uL Normal 07/19/2024 1.4 - 6.3 [facility] NEUTROPHIL % 61.9 % Normal 07/19/2024 40 - 70 [facility] IMMATURE GRANULOCYTE % 0.9 % Above high normal 07/19/2024 0 - 0.6 [facility] [address] 0.7 10*3/uL Normal 07/19/2024 0.2 - 0.8 [facility] MCH 29.0 pg Normal 07/19/2024 26 - 34 [facility] RED CELL COUNT 4.55 10*6/ L Normal 07/19/2024 3.8 - 5.[address] [facility] [address] 2.0 10*3/uL Normal 07/19/2024 0.7 - 4.5 [facility] WHITE CELL COUNT 8.1 10*3/uL Normal 07/19/2024 3.6 - 11 [facility] EOSINOPHIL % 3.2 % Normal 07/19/2024 0 - 6 [facility] MCV 91.6 fL Normal 07/19/2024 80 - 100 [facility] MCHC 31.7 g/dL Below low normal 07/19/2024 32 - 36 [facility] RBC DISTRIBUTION WIDTH 13.1 % Normal 07/19/2024 11.6 - 14.8 [facility] LYMPHOCYTE % 25.0 % Normal 07/19/2024 20 - 50 [facility] GYCOHEMOGLOBIN A1C 5.0 % Normal 07/19/2024 4.4 - 6.4 [facility] COMMENT Normal 07/15/2024 [facility] trach rRNA Spec Ql BRYANNA+probe NOT DETECTED Normal 07/15/2024 - [facility] N gonorrhoea rRNA Spec Ql BRYANNA+probe NOT DETECTED Normal 07/15/2024 - [facility] T vaginalis rRNA Spec Ql BRYANNA+probe NOT DETECTED Normal 07/15/2024 - [facility] C trach rRNA Spec Ql BRYANNA+probe NOT DETECTED Normal 06/15/2024 - [facility] Radha rRNA Vag Ql Probe DETECTED Abnormal 06/15/2024 - [facility] N gonorrhoea rRNA Spec Ql BRYANNA+probe NOT DETECTED Normal 06/15/2024 - [facility] C glabrata RNA Vag Ql BRYANNA+probe NOT DETECTED Normal 06/15/2024 - [facility] T vaginalis rRNA Spec Ql BRYANNA+probe DETECTED Abnormal 06/15/2024 - [facility] BV bacteria rRNA Vag Ql BRYANNA+probe NEGATIVE Normal 06/15/2024 - [facility] Radha rRNA Vag Ql Probe DETECTED Abnormal 06/07/2024 - [facility] C trach rRNA Spec Ql BRYANNA+probe NOT DETECTED Normal 06/07/2024 - [facility] BV bacteria rRNA Vag Ql BRYANNA+probe NEGATIVE Normal 06/07/2024 - [facility] T vaginalis rRNA Spec Ql BRYANNA+probe DETECTED Abnormal 06/07/2024 - [facility] C glabrata RNA Vag Ql BRYANNA+probe NOT DETECTED Normal 06/07/2024 - [facility] N gonorrhoea rRNA Spec Ql BRYANNA+probe NOT DETECTED Normal 06/07/2024 - [facility] AST (SGOT) 18.0 U/L Normal 03/27/2024 17 - 35 [facility] MAGNESIUM 1.9 mg/dL Normal 03/27/2024 1.8 - 3 [facility] POTASSIUM 4.3 mmol/L Normal 03/27/2024 3.6 - 5.1 [facility] UROBILINOGEN, URINE 1.0 EU/dL Normal 03/27/2024 0.2 - 1 [facility] PH OF URINE 7.0 Normal 03/27/2024 5 - 8 [facility] LEUKOCYTE ESTERASE Negative Normal 03/27/2024 - [facility] COLOR OF URINE Yellow Normal 03/27/2024 - [facility] GLUCOSE QUAL Negative Normal 03/27/2024 - [facility] PROTEIN QUAL Trace Normal 03/27/2024 - [facility] SPECIFIC GRAVITY >=1.03 Above high normal 03/27/2024 - [facility] KETONES URINE Negative Normal 03/27/2024 - [facility] HEMOGLOBIN, URINE Negative Normal 03/27/2024 - [facility] NITRITE Negative Normal 03/27/2024 - [facility] CLARITY OF URINE Cloudy Abnormal 03/27/2024 - [facility] BILIRUBIN, URINE Negative Normal 03/27/2024 - [facility] AST (SGOT) Normal 03/27/2024 [facility] BILIRUBIN, TOTAL 0.2 mg/dL Normal 03/27/2024 0.1 - 1.2 [facility] ALT (SGPT) 22.0 U/L Normal 03/27/2024 8 - 39 [facility] ALKALINE PHOSPHATASE 92.0 U/L Normal 03/27/2024 39 - 113 [facility] ALBUMIN, AUTOMATED 4.1 g/dL Normal 03/27/2024 3.8 - 5.3 [facility] PROTEIN TOTAL 7.3 g/dL Normal 03/27/2024 6.2 - 8.1 [facility] BILIRUBIN, DIRECT Normal 03/27/2024 [facility] CALCIUM, TOTAL 9.0 mg/dL Normal 03/27/2024 8.4 - 10.2 [facility] BICARBONATE 23.0 mmol/L Normal 03/27/2024 23 - 32 [facility] POTASSIUM Normal 03/27/2024 [facility] ANION GAP 8.0 mmol/L Normal 03/27/2024 3 - 11 [facility] GLOMERULAR FILTRATION RATE ML/MIN/1.73 SQ M.PREDICTED 66.0 mL/min/1.73m*2 Normal 03/27/2024 60 - [facility] UREA NITROGEN 15.0 mg/dL Normal 03/27/2024 8 - 24 [facility] CREATININE 1.2 mg/dL Normal 03/27/2024 0.6 - 1.2 [facility] GLUCOSE 91.0 mg/dL Normal 03/27/2024 70 - 200 [facility] SODIUM 139.0 mmol/L Normal 03/27/2024 137 - 144 [facility] CHLORIDE 108.0 mmol/L Normal 03/27/2024 100 - 111 [facility] LIPASE 23.0 U/L Normal 03/27/2024 8 - 51 [facility] MAGNESIUM Normal 03/27/[address] [facility] [address] 0.1 10*3/uL Normal 03/27/2024 0 - 0.[address] [facility] [address] 0.0 10*3/uL Normal 03/27/2024 0 - 0. 2 [facility] WHITE CELL COUNT 7.9 10*3/uL Normal 03/27/2024 3.6 - 11 [facility] MCHC 31.4 g/dL Below low normal 03/27/2024 32 - 36 [facility] RED CELL COUNT 4.64 10*6/ L Normal 03/27/2024 3.8 - 5.2 [facility] RBC DISTRIBUTION WIDTH 13.7 % Normal 03/27/2024 11.6 - 14.8 [facility] MCV 88.6 fL Normal 03/27/2024 80 - [address] [facility] [address] 4.8 10*3/uL Normal 03/27/2024 1.4 - 6.3 [facility] EOSINOPHIL % 1.3 % Normal 03/27/2024 0 - 6 [facility] LYMPHOCYTE % 28.0 % Normal 03/27/2024 20 - 50 [facility] MONOCYTE % 8.7 % Normal 03/27/2024 4 - 12 [facility] AUTO NRBC % 0.0 % Normal 03/27/2024 0 - 0 [facility] HEMOGLOBIN 12.9 g/dL Normal 03/27/2024 12 - 16 [facility] IMMATURE GRANULOCYTE % 0.5 % Normal 03/27/2024 0 - 0.6 [facility] MCH 27.8 pg Normal 03/27/2024 26 - 34 [facility] NEUTROPHIL % 61.1 % Normal 03/27/2024 40 - 70 [facility] BASOPHILS % 0.4 % Normal 03/27/2024 0 - [address] [facility] [address] 2.2 10*3/uL Normal 03/27/2024 0.7 - 4.[address] [facility] [address] 0.7 10*3/uL Normal 03/27/2024 0.2 - 0.8 [facility] PLATELET COUNT 320.0 10*3/uL Normal 03/27/2024 150 - 440 [facility] HEMATOCRIT 41.1 % Normal 03/27/2024 35 - 47 [facility] RADHA GLABRATA RNA Negative Normal 03/09/2024 - [facility] RADHA SPECIES RNA Negative Normal 03/09/2024 - [facility] BACTERIAL VAGINOSIS RNA Negative Normal 03/09/2024 - [facility] TRICHOMONAS VAGINALIS RNA Negative Normal 03/09/2024 - [facility] CHLAMYDIA TRACHOMATIS, NAAT Negative Normal 03/09/2024 - [facility] NEISSERIA GONORRHOEAE RIBOSOMAL RNA Negative Normal 03/09/2024 - [facility] NEISSERIA GONORRHOEAE RIBOSOMAL RNA Negative Normal 02/11/2024 - [facility] HCG QUAL, URINE Negative Normal 02/06/2024 - [facility] TROPONIN I HIGH SENSITIVE < 3.00 Normal 01/14/2024 0 - 54 [facility] LIPASE 30.0 U/L Normal 01/13/2024 13 - 75 [facility] GFRE 113.0 Normal 01/13/2024 60 - [facility] CALCIUM 9.1 mg/dL Normal 01/13/2024 8.5 - 10.1 [facility] MAGNESIUM 2.1 mg/dL Normal 01/13/2024 1.8 - 2.4 [facility] PRO B-TYPE NATRIURETIC PEPTIDE 21.0 pg/mL Normal 01/13/2024 0 - 450 [facility] AST (SGOT) 12.0 U/L Below low normal 01/13/2024 15 - 37 [facility] ALKALINE PHOSPHATASE 84.0 U/L Normal 01/13/2024 50 - 136 [facility] GLUCOSE 74.0 mg/dL Normal 01/13/2024 74 - 100 [facility] POTASSIUM SERUM 4.1 mmol/L Normal 01/13/2024 3.5 - 5.1 [facility] GLOBULIN 3.7 g/dL Normal 01/13/2024 2.4 - 4.2 [facility] BUN/CREAT.RATIO 17.1 Normal 01/13/2024 [facility] SODIUM 140.0 mmol/L Normal 01/13/2024 136 - 145 [facility] CHLORIDE 111.0 mmol/L Above high normal 01/13/2024 98 - 107 [facility] ALT (SGPT) 23.0 U/L Normal 01/13/2024 12 - 78 [facility] CREATININE 0.7 mg/dL Normal 01/13/2024 0.55 - 1.3 [facility] H BUN 12.0 mg/dL Normal 01/13/2024 7 - 18 [facility] ALBUMIN 3.9 g/dL Normal 01/13/2024 3.4 - 5 [facility] CO2 23.0 mmol/L Normal 01/13/2024 21 - 32 [facility] H BILIRUBIN,TOTAL 0.2 mg/dL Normal 01/13/2024 0.2 - 1 [facility] A/G RATIO 1.1 g/dL Normal 01/13/2024 [facility] PROTEIN, TOTAL 7.6 g/dL Normal 01/13/2024 6.4 - 8.2 [facility] PATIENT FASTING? UNKNOWN Normal 01/13/2024 [facility] PLATELET COUNT 320.0 K/uL Normal 01/13/2024 150 - 480 [facility] RDW 12.9 % Normal 01/13/2024 11.1 - 13.3 [facility] HGB 13.4 g/dL Normal 01/13/2024 12.1 - 15.7 [facility] NUCLEATED RBC 0.0 % Normal 01/13/2024 0 - 0.2 [facility] MMH ABSOLUTE MONOS 0.5 K/uL Normal 01/13/2024 0.2 - 1.5 [facility] ABSOLUTE EOS 0.1 K/uL Normal 01/13/2024 0 - 0.7 [facility] ABSOLUTE IMMATURE GRANULOCYTES 0.0 K/uL Normal 01/13/2024 0 - 0.3 [facility] MCHC 31.3 g/dL Normal 01/13/2024 31 - 36 [facility] EOSINOPHILS 1.0 % Normal 01/13/2024 0 - 6 [facility] H MCV 86.0 fL Normal 01/13/2024 83 - 102 [facility] ABSOLUTE NUCLEATED RBC 0.0 K/uL Normal 01/13/2024 0 - 0.012 [facility] IMMATURE GRANULOCYTES 0.0 % Normal 01/13/2024 0 - 0.45 [facility] MONOCYTES 7.0 % Normal 01/13/2024 0 - 12 [facility] RBC 5.0 M/uL Normal 01/13/2024 4 - 5.4 [facility] ABSOLUTE LYMPHS 2.0 K/uL Normal 01/13/2024 1.5 - 4.9 [facility] BASOPHILS 0.0 % Normal 01/13/2024 0 - 2 [facility] ABSOLUTE GRANULOCYTES 4.4 K/uL Normal 01/13/2024 2.2 - 7.3 [facility] MPV 11.0 fL Normal 01/13/2024 8 - 12 [facility] GRANULOCYTES 63.0 % Normal 01/13/2024 23 - 78 [facility] MH HCT 42.8 % Normal 01/13/2024 36 - 46 [facility] ABSOLUTE BASO 0.0 K/uL Normal 01/13/2024 0 - 0.2 [facility] MMH MCH 27.0 PG Normal 01/13/2024 27 - 34 [facility] WBC 7.0 K/uL Normal 01/13/2024 3.7 - 10.3 [facility] LYMPHS 28.0 % Normal 01/13/2024 16 - 50 [facility] D-DIMER HIGH SENSITIVITY < 230 Normal 01/13/2024 0 - 243 [facility] TROPONIN I HIGH SENSITIVE < 3.00 Normal 01/13/2024 0 - 54 [facility] CHLAMYDIA TRACHOMATIS, NAAT Negative Normal 12/29/2023 - [facility] HIV 1+2 AB + HIV1 P24 AG ([place]) IN SERUM BY IMMUNOASSAY Negative Normal 12/29/2023 - [facility] HEPATITIS C ANTIBODY (IA5) Negative Normal 12/29/2023 - [facility] SYPHILIS SCREEN Nonreactive Normal 12/29/2023 - [facility] TRICHOMONAS VAGINALIS RNA Negative Normal 12/16/2023 - [facility] RADHA GLABRATA RNA Negative Normal 12/16/2023 - [facility] RADHA SPECIES RNA Negative Normal 12/16/2023 - [facility] BACTERIAL VAGINOSIS RNA Negative Normal 12/16/2023 - [facility] CHLAMYDIA TRACHOMATIS, NAAT Negative Normal 11/12/2023 - [facility] NEISSERIA GONORRHOEAE RIBOSOMAL RNA Negative Normal 11/12/2023 - [facility] RADHA SPECIES RNA Negative Normal 11/12/2023 - [facility] RADHA GLABRATA RNA Negative Normal 11/12/2023 - [facility] TRICHOMONAS VAGINALIS RNA Negative Normal 11/12/2023 - [facility] BACTERIAL VAGINOSIS RNA Negative Normal 11/12/2023 - [facility] BICARBONATE 23.0 mmol/L Normal 10/29/2023 23 - 32 [facility] ANION GAP 7.0 mmol/L Normal 10/29/2023 3 - 11 [facility] SODIUM 141.0 mmol/L Normal 10/29/2023 137 - 144 [facility] CREATININE 0.8 mg/dL Normal 10/29/2023 0.6 - 1.2 [facility] GLOMERULAR FILTRATION RATE ML/MIN/1.73 SQ M.PREDICTED 108.0 mL/min/1.73m*2 Normal 10/29/2023 60 - [facility] CHLORIDE 111.0 mmol/L Normal 10/29/2023 100 - 111 [facility] POTASSIUM 4.0 mmol/L Normal 10/29/2023 3.6 - 5.1 [facility] CALCIUM, TOTAL 8.9 mg/dL Normal 10/29/2023 8.4 - 10.2 [facility] UREA NITROGEN 16.0 mg/dL Normal 10/29/2023 8 - 24 [facility] GLUCOSE 99.0 mg/dL Normal 10/29/2023 70 - [address] [facility] [address] 0.1 10*3/uL Normal 10/29/2023 0 - 0.3 [facility] WHITE CELL COUNT 7.2 10*3/uL Normal 10/29/2023 3.6 - [address] [facility] [address] 0.6 10*3/uL Normal 10/29/2023 0.2 - 0.8 [facility] MCHC 31.5 g/dL Below low normal 10/29/2023 32 - 36 [facility] EOSINOPHIL % 0.7 % Normal 10/29/2023 0 - 6 [facility] BASOPHILS % 0.4 % Normal 10/29/2023 0 - 2 [facility] LYMPHOCYTE % 27.5 % Normal 10/29/2023 20 - 50 [facility] HEMOGLOBIN 11.6 g/dL Below low normal 10/29/2023 12 - 16 [facility] MCV 85.6 fL Normal 10/29/2023 80 - 100 [facility] NEUTROPHIL % 62.7 % Normal 10/29/2023 40 - [address] [facility] [address] 2.0 10*3/uL Normal 10/29/2023 0.7 - 4.[address] [facility] [address] 4.5 10*3/uL Normal 10/29/2023 1.4 - 6.3 [facility] MONOCYTE % 8.0 % Normal 10/29/2023 4 - 12 [facility] PLATELET COUNT 294.0 10*3/uL Normal 10/29/2023 150 - [address] [facility] [address] 0.0 10*3/uL Normal 10/29/2023 0 - 0. 2 [facility] HEMATOCRIT 36.8 % Normal 10/29/2023 35 - 47 [facility] AUTO NRBC % 0.0 % Normal 10/29/2023 0 - 0 [facility] RBC DISTRIBUTION WIDTH 13.2 % Normal 10/29/2023 11.6 - 14.8 [facility] RED CELL COUNT 4.3 10*6/ L Normal 10/29/2023 3.8 - 5.2 [facility] MCH 27.0 pg Normal 10/29/2023 26 - 34 [facility] IMMATURE GRANULOCYTE % 0.7 % Above high normal 10/29/2023 0 - 0.6 [facility] CARDIOLIPIN ANTIBODY IGG <10 Normal 10/22/2023 - [facility] CARDIOLIPIN ANTIBODY IGA <10 Normal 10/22/2023 - [facility] CARDIOLIPIN ANTIBODY IGM <10 Normal 10/22/2023 - [facility] ANTI-THROMBIN ACTIVITY 121.0 % Normal 10/22/2023 80 - 130 [facility] PROTEIN C ACTIVITY 96.0 % Normal 10/22/2023 70 - 140 [facility] PROTEIN S ACTIVITY >150.0 % Above high normal 10/22/2023 70 - 140 [facility] ACTIVATED PARTIAL THROMBOPLASTIN TIME IN PPP BY COAGULATION ASSAY 37.2 seconds Above high normal 10/22/2023 25.1 - 36.5 [facility] PROTHROMBIN TIME (PT) 14.7 seconds Above high normal 10/22/2023 10.4 - 13 [facility] INR 1.3 ratio Above high normal 10/22/2023 0.9 - 1.1 [facility] GLOBULIN 3.6 g/dL Normal 10/18/2023 2.4 - 4.2 [facility]G RATIO 1.0 g/dL Normal 10/18/2023 [facility] PROTEIN, TOTAL 7.2 g/dL Normal 10/18/2023 6.4 - 8.2 [facility] CO2 27.0 mmol/L Normal 10/18/2023 21 - 32 [facility] BUN 13.0 mg/dL Normal 10/18/2023 7 - 18 [facility] CHLORIDE 109.0 mmol/L Above high normal 10/18/2023 98 - 107 [facility] 12.0 U/L Below low normal 10/18/2023 15 - 37 [facility] BUN/CREAT.RATIO 18.8 Normal 10/18/2023 [facility] GLUCOSE 105.0 mg/dL Above high normal 10/18/2023 74 - 100 [facility] POTASSIUM SERUM 3.9 mmol/L Normal 10/18/2023 3.5 - 5.1 [facility] 26.0 U/L Normal 10/18/2023 12 - 78 [facility] CREATININE 0.69 mg/dL Normal 10/18/2023 0.55 - 1.3 CTPM ALKALINE PHOSPHATASE 107.0 U/L Normal 10/18/2023 50 - 136 [facility] SODIUM 138.0 mmol/L Normal 10/18/2023 136 - 145 [facility] BILIRUBIN,TOTAL 0.2 mg/dL Normal 10/18/2023 0.2 - 1 [facility] ALBUMIN 3.6 g/dL Normal 10/18/2023 3.4 - 5 [facility] PATIENT FASTING? UNKNOWN Normal 10/18/2023 [facility] HCG, BETA QUANTITATIVE < 1 Normal 10/18/2023 [facility] GFRE 115.0 Normal 10/18/2023 60 - [facility] LIPASE 31.0 U/L Normal 10/18/2023 13 - 75 [facility] RBC 4.49 M/uL Normal 10/18/2023 4 - 5.4 [facility] ABSOLUTE NUCLEATED RBC 0.0 K/uL Normal 10/18/2023 0 - 0.012 [facility] NUCLEATED RBC 0.0 % Normal 10/18/2023 0 - 0.2 [facility] MMH RDW 12.9 % Normal 10/18/2023 11.1 - 13.3 [facility] EOSINOPHILS 1.0 % Normal 10/18/2023 0 - 6 [facility] H HGB 12.5 g/dL Normal 10/18/2023 12.1 - 15.7 [facility] H ABSOLUTE EOS 0.1 K/uL Normal 10/18/2023 0 - 0.7 [facility] MH WBC 10.4 K/uL Above high normal 10/18/2023 3.7 - 10.3 [facility] MCH 28.0 PG Normal 10/18/2023 27 - 34 [facility] ABSOLUTE LYMPHS 2.3 K/uL Normal 10/18/2023 1.5 - 4.9 [facility] ABSOLUTE MONOS 0.8 K/uL Normal 10/18/2023 0.2 - 1.5 [facility] MCV 88.0 fL Normal 10/18/2023 83 - 102 [facility] HCT 39.3 % Normal 10/18/2023 36 - 46 [facility] BASOPHILS 0.0 % Normal 10/18/2023 0 - 2 [facility] IMMATURE GRANULOCYTES 1.0 % Above high normal 10/18/2023 0 - 0.45 [facility] ABSOLUTE BASO 0.0 K/uL Normal 10/18/2023 0 - 0.2 [facility] MMH MCHC 31.8 g/dL Normal 10/18/2023 31 - 36 [facility] GRANULOCYTES 68.0 % Normal 10/18/2023 23 - 78 [facility] MH MPV 10.0 fL Normal 10/18/2023 8 - 12 [facility] ABSOLUTE GRANULOCYTES 7.1 K/uL Normal 10/18/2023 2.2 - 7.3 [facility] PLATELET COUNT 286.0 K/uL Normal 10/18/2023 150 - 480 [facility] LYMPHS 22.0 % Normal 10/18/2023 16 - 50 [facility] MONOCYTES 8.0 % Normal 10/18/2023 0 - 12 [facility] ABSOLUTE IMMATURE GRANULOCYTES 0.1 K/uL Normal 10/18/2023 0 - 0.3 [facility] PROTIME 12.0 secs Normal 10/12/2023 9 - 13 [facility] INR 1.1 Normal 10/12/2023 [facility] ABSOLUTE LYMPHS 3.0 K/uL Normal 10/12/2023 1.5 - 4.9 [facility] GRANULOCYTES 52.0 % Normal 10/12/2023 23 - 78 [facility] MH BASOPHILS 1.0 % Normal 10/12/2023 0 - 2 [facility] ABSOLUTE GRANULOCYTES 4.3 K/uL Normal 10/12/2023 2.2 - 7.3 [facility] ABSOLUTE MONOS 0.6 K/uL Normal 10/12/2023 0.2 - 1.5 [facility] EOSINOPHILS 3.0 % Normal 10/12/2023 0 - 6 [facility] MCV 89.0 fL Normal 10/12/2023 83 - 102 [facility] IMMATURE GRANULOCYTES 1.0 % Above high normal 10/12/2023 0 - 0.45 [facility] LYMPHS 37.0 % Normal 10/12/2023 16 - 50 [facility] ABSOLUTE NUCLEATED RBC 0.0 K/uL Normal 10/12/2023 0 - 0.012 [facility] MPV 11.0 fL Normal 10/12/2023 8 - 12 [facility] WBC 8.2 K/uL Normal 10/12/2023 3.7 - 10.3 [facility] ABSOLUTE EOS 0.3 K/uL Normal 10/12/2023 0 - 0.7 [facility] MH NUCLEATED RBC 0.0 % Normal 10/12/2023 0 - 0.2 [facility] MMH ABSOLUTE BASO 0.0 K/uL Normal 10/12/2023 0 - 0.2 [facility] MMH PLATELET COUNT 251.0 K/uL Normal 10/12/2023 150 - 480 [facility] MCH 28.0 PG Normal 10/12/2023 27 - 34 [facility] HCT 39.3 % Normal 10/12/2023 36 - 46 [facility] MCHC 31.0 g/dL Normal 10/12/2023 31 - 36 [facility] MONOCYTES 7.0 % Normal 10/12/2023 0 - 12 [facility] ABSOLUTE IMMATURE GRANULOCYTES 0.1 K/uL Normal 10/12/2023 0 - 0.3 [facility] RBC 4.4 M/uL Normal 10/12/2023 4 - 5.4 [facility] HGB 12.2 g/dL Normal 10/12/2023 12.1 - 15.7 [facility] RDW 12.8 % Normal 10/12/2023 11.1 - 13.3 [facility] PTT 85.0 secs Critically high 10/12/2023 25 - 36 [facility] PTT 111.0 secs Critically high 10/12/2023 25 - 36 [facility] PTT 204.0 secs Critically high 10/11/2023 25 - 36 [facility] IMMATURE GRANULOCYTES 1.0 % Above high normal 10/11/2023 0 - 0.45 [facility] MCV 87.0 fL Normal 10/11/2023 83 - 102 [facility] HGB 13.1 g/dL Normal 10/11/2023 12.1 - 15.7 [facility] HCT 40.9 % Normal 10/11/2023 36 - 46 [facility] ABSOLUTE MONOS 0.8 K/uL Normal 10/11/2023 0.2 - 1.5 [facility] LYMPHS 28.0 % Normal 10/11/2023 16 - 50 [facility] ABSOLUTE LYMPHS 3.1 K/uL Normal 10/11/2023 1.5 - 4.9 [facility] BASOPHILS 1.0 % Normal 10/11/2023 0 - 2 [facility] EOSINOPHILS 2.0 % Normal 10/11/2023 0 - 6 [facility] RBC 4.72 M/uL Normal 10/11/2023 4 - 5.4 [facility] ABSOLUTE EOS 0.2 K/uL Normal 10/11/2023 0 - 0.7 [facility] MH GRANULOCYTES 62.0 % Normal 10/11/2023 23 - 78 [facility] MH MCHC 32.0 g/dL Normal 10/11/2023 31 - 36 [facility] WBC 10.8 K/uL Above high normal 10/11/2023 3.7 - 10.3 [facility] MPV 10.0 fL Normal 10/11/2023 8 - 12 [facility] MONOCYTES 7.0 % Normal 10/11/2023 0 - 12 [facility] ABSOLUTE IMMATURE GRANULOCYTES 0.1 K/uL Normal 10/11/2023 0 - 0.3 [facility] RDW 12.9 % Normal 10/11/2023 11.1 - 13.3 [facility] PLATELET COUNT 304.0 K/uL Normal 10/11/2023 150 - 480 [facility] MCH 28.0 PG Normal 10/11/2023 27 - 34 [facility] ABSOLUTE GRANULOCYTES 6.7 K/uL Normal 10/11/2023 2.2 - 7.3 [facility] NUCLEATED RBC 0.0 % Normal 10/11/2023 0 - 0.2 [facility] MMH ABSOLUTE BASO 0.1 K/uL Normal 10/11/2023 0 - 0.2 [facility] ABSOLUTE NUCLEATED RBC 0.0 K/uL Normal 10/11/2023 0 - 0.012 [facility] PROTIME 11.7 secs Normal 10/11/2023 9 - 13 [facility] INR 1.1 Normal 10/11/2023 [facility] D-DIMER HIGH SENSITIVITY 257.0 ng/MLDDU Above high normal 10/11/2023 0 - 243 [facility] TROPONIN I HIGH SENSITIVE < 3.00 Normal 10/11/2023 0 - 54 [facility] A/G RATIO 0.9 g/dL Normal 10/11/2023 [facility] ALT (SGPT) 22.0 U/L Normal 10/11/2023 12 - 78 [facility] BILIRUBIN,TOTAL 0.1 mg/dL Below low normal 10/11/2023 0.2 - 1 [facility] PROTEIN, TOTAL 7.6 g/dL Normal 10/11/2023 6.4 - 8.2 [facility] GLOBULIN 3.9 g/dL Normal 10/11/2023 2.4 - 4.2 [facility] ALKALINE PHOSPHATASE 115.0 U/L Normal 10/11/2023 50 - 136 [facility] POTASSIUM SERUM 4.2 mmol/L Normal 10/11/2023 3.5 - 5.1 [facility] GLUCOSE 110.0 mg/dL Above high normal 10/11/2023 74 - 100 [facility] CO2 27.0 mmol/L Normal 10/11/2023 21 - 32 [facility] AST (SGOT) 18.0 U/L Normal 10/11/2023 15 - 37 [facility] CHLORIDE 109.0 mmol/L Above high normal 10/11/2023 98 - 107 [facility] BUN 15.0 mg/dL Normal 10/11/2023 7 - 18 [facility] BUN/CREAT.RATIO 15.8 Normal 10/11/2023 [facility] CREATININE 0.95 mg/dL Normal 10/11/2023 0.55 - 1.3 [facility] SODIUM 140.0 mmol/L Normal 10/11/2023 136 - 145 [facility] ALBUMIN 3.7 g/dL Normal 10/11/2023 3.4 - 5 [facility] PATIENT FASTING? UNKNOWN Normal 10/11/2023 [facility] PRO B-TYPE NATRIURETIC PEPTIDE 13.0 pg/mL Normal 10/11/2023 0 - 450 [facility] LIPASE 29.0 U/L Normal 10/11/2023 13 - 75 [facility] GFRE 80.0 Normal 10/11/2023 60 - [facility] RADHA SPECIES RNA Negative Normal 10/01/2023 - [facility] TRICHOMONAS VAGINALIS RNA Negative Normal 10/01/2023 - [facility] RADHA GLABRATA RNA Negative Normal 10/01/2023 - [facility] BACTERIAL VAGINOSIS RNA Negative Normal 10/01/2023 - [facility] TESTOSTERONE BY MULTI PURPOSE MACHINE OPERATOR. 20.0 ng/dL Normal 10/01/2023 9 - 55 [facility] TESTOSTERONE, FREE BY MULTI PURPOSE MACHINE OPERATOR 5.0 pg/mL Normal 10/01/2023 0.8 - 7.4 [facility] SEX HORMONE BINDING GLOBULIN 12.0 nmol/L Below low normal 10/01/2023 25 - 122 [facility] 17-HYDROXYPROGESTERO NE, HPLC-MS/MS 34.34 ng/dL Normal 10/01/2023 - [facility] DHEAS 344.0 ug/dL Normal 10/01/2023 148 - 407 [facility] ABO GROUP (TYPE) IN BLOOD B Normal 10/01/2023 [facility] RH TYPE IN BLOOD POS Normal 10/01/2023 [facility] ANTIBODY SCREEN NEG Normal 10/01/2023 [facility] LUTEINIZING HORMONE 10.81 mIU/mL Normal 10/01/2023 [facility] FOLLICLE STIM HORMONE 5.44 mIU/mL Normal 10/01/2023 [facility] IRON 79.0 ug/dL Normal 10/01/2023 28 - 170 [facility] FERRITIN 35.0 ng/mL Normal 10/01/2023 6 - 307 [facility] IRON BINDING CAPACITY 405.0 ug/dL Normal 10/01/2023 260 - 490 [facility] THYROID STIM HORMONE 1.77 uIU/mL Normal 10/01/2023 0.35 - 4.94 [facility] THYROXINE (T4) FREE 0.89 ng/dL Normal 10/01/2023 [facility] ESTRADIOL 40.0 pg/mL Normal 10/01/2023 [facility] PROLACTIN 13.04 ng/mL Normal 10/01/2023 [facility] GLOMERULAR FILTRATION RATE ML/MIN/1.73 SQ M.PREDICTED 108.0 mL/min/1.73m*2 Normal 10/01/2023 60 - [facility] ANION GAP 9.0 mmol/L Normal 10/01/2023 3 - 11 [facility] POTASSIUM 4.3 mmol/L Normal 10/01/2023 3.6 - 5.1 [facility] UREA NITROGEN 14.0 mg/dL Normal 10/01/2023 8 - 24 [facility] BICARBONATE 22.0 mmol/L Below low normal 10/01/2023 23 - 32 [facility] CREATININE 0.8 mg/dL Normal 10/01/2023 0.6 - 1.2 [facility] CALCIUM, TOTAL 9.5 mg/dL Normal 10/01/2023 8.4 - 10.2 [facility] GLUCOSE 87.0 mg/dL Normal 10/01/2023 70 - 200 [facility] SODIUM 140.0 mmol/L Normal 10/01/2023 137 - 144 [facility] CHLORIDE 109.0 mmol/L Normal 10/01/2023 100 - 111 [facility] HCG QUANTITATIVE <2.0 IU/L Normal 10/01/2023 [facility] GYCOHEMOGLOBIN A1C 5.1 % Normal 10/01/2023 4.4 - 6.4 [facility] WHITE CELL COUNT 7.9 10*3/uL Normal 10/01/2023 3.6 - 11 [facility] MCV 86.4 fL Normal 10/01/2023 80 - 100 [facility] HEMATOCRIT 40.8 % Normal 10/01/2023 35 - 47 [facility] PLATELET COUNT 322.0 10*3/uL Normal 10/01/2023 150 - 440 [facility] RED CELL COUNT 4.72 10*6/ L Normal 10/01/2023 3.8 - 5.2 [facility] RBC DISTRIBUTION WIDTH 12.7 % Normal 10/01/2023 11.6 - 14.8 [facility] MCH 27.1 pg Normal 10/01/2023 26 - 34 [facility] HEMOGLOBIN 12.8 g/dL Normal 10/01/2023 12 - 16 [facility] MCHC 31.4 g/dL Below low normal 10/01/2023 32 - 36 [facility] AUTO NRBC % 0.0 % Normal 10/01/2023 0 - 0 [facility] RADHA SPECIES RNA Negative Normal 07/13/2023 - [facility] BACTERIAL VAGINOSIS RNA Positive Abnormal 07/13/2023 - [facility] RADHA GLABRATA RNA Negative Normal 07/13/2023 - [facility] TRICHOMONAS VAGINALIS RNA Negative Normal 07/13/2023 - [facility] RBC >=50 Abnormal 07/12/2023 0 - 2 [facility] WBC 3-4 Abnormal 07/12/2023 0 - 2 [facility] BACTERIA 4+ Abnormal 07/12/2023 - [facility] EPITHELIAL CELLS Occasional Abnormal 07/12/2023 - [facility] LEUKOCYTE ESTERASE Negative Normal 07/12/2023 - [facility] CLARITY OF URINE Cloudy Abnormal 07/12/2023 - [facility] HEMOGLOBIN, URINE Large Abnormal 07/12/2023 - [facility] NITRITE Negative Normal 07/12/2023 - [facility] UROBILINOGEN, URINE 0.2 EU/dL Normal 07/12/2023 0.2 - 1 [facility] SPECIFIC GRAVITY 1.025 Normal 07/12/2023 1.005 - 1.03 [facility] PH OF URINE 7.0 Normal 07/12/2023 5 - 8 [facility] BILIRUBIN, URINE Negative Normal 07/12/2023 - [facility] COLOR OF URINE Red Abnormal 07/12/2023 - [facility] PROTEIN QUAL 30.0 mg/dL Abnormal 07/12/2023 - [facility] KETONES URINE Negative Normal 07/12/2023 - [facility] GLUCOSE, QUAL Negative Normal 07/12/2023 - [facility] BICARBONATE 24.0 mmol/L Normal 07/12/2023 23 - 32 [facility] SODIUM 140.0 mmol/L Normal 07/12/2023 137 - 144 [facility] GLOMERULAR FILTRATION RATE ML/MIN/1.73 SQ M.PREDICTED 109.0 mL/min/1.73m*2 Normal 07/12/2023 60 - [facility] CREATININE 0.8 mg/dL Normal 07/12/2023 0.6 - 1.2 [facility] GLUCOSE 66.0 mg/dL Below low normal 07/12/2023 70 - 200 [facility] ANION GAP 8.0 mmol/L Normal 07/12/2023 3 - 11 [facility] CHLORIDE 108.0 mmol/L Normal 07/12/2023 100 - 111 [facility] POTASSIUM 4.0 mmol/L Normal 07/12/2023 3.6 - 5.1 [facility] CALCIUM, TOTAL 8.9 mg/dL Normal 07/12/2023 8.4 - 10.2 [facility] UREA NITROGEN 12.0 mg/dL Normal 07/12/2023 8 - 24 [facility] LYMPHOCYTE % 27.9 % Normal 07/12/2023 20 - 50 [facility] BASOPHILS % 0.3 % Normal 07/12/2023 0 - 2 [facility] NEUTROPHIL % 60.0 % Normal 07/12/2023 40 - 70 [facility] MONOCYTE % 8.5 % Normal 07/12/2023 4 - [address] [facility] [address] 2.2 10*3/uL Normal 07/12/2023 0.7 - 4.[address] [facility] [address] 0.7 10*3/uL Normal 07/12/2023 0.2 - 0.8 [facility] AUTO NRBC % 0.0 % Normal 07/12/2023 0 - 0 [facility] HEMATOCRIT 40.6 % Normal 07/12/2023 35 - 47 [facility] HEMOGLOBIN 12.8 g/dL Normal 07/12/2023 12 - 16 [facility] RED CELL COUNT 4.61 10*6/ L Normal 07/12/2023 3.8 - 5.2 [facility] MCHC 31.5 g/dL Below low normal 07/12/2023 32 - 36 [facility] EOSINOPHIL % 2.8 % Normal 07/12/2023 0 - 6 [facility] MCV 88.1 fL Normal 07/12/2023 80 - [address] [facility] [address] 0.0 10*3/uL Normal 07/12/2023 0 - 0. [address] [facility] [address] 4.8 10*3/uL Normal 07/12/2023 1.4 - 6.3 [facility] PLATELET COUNT 298.0 10*3/uL Normal 07/12/2023 150 - 440 [facility] WHITE CELL COUNT 8.0 10*3/uL Normal 07/12/2023 3.6 - 11 [facility] IMMATURE GRANULOCYTE % 0.5 % Normal 07/12/2023 0 - 0.[address] [facility] [address] 0.2 10*3/uL Normal 07/12/2023 0 - 0.3 [facility] MCH 27.8 pg Normal 07/12/2023 26 - 34 [facility] RBC DISTRIBUTION WIDTH 12.8 % Normal 07/12/2023 11.6 - 14.8 [facility] GFRE 113.0 Normal 05/21/2023 60 - [facility] POTASSIUM SERUM 3.7 mmol/L Normal 05/21/2023 3.5 - 5.1 [facility] CHLORIDE 107.0 mmol/L Normal 05/21/2023 98 - 107 [facility] CREATININE 0.71 mg/dL Normal 05/21/2023 0.55 - 1.3 [facility] GLUCOSE 123.0 mg/dL Above high normal 05/21/2023 74 - 100 [facility] BUN 13.0 mg/dL Normal 05/21/2023 7 - 18 [facility] SODIUM 140.0 mmol/L Normal 05/21/2023 136 - 145 [facility] MH CO2 26.0 mmol/L Normal 05/21/2023 21 - 32 [facility] PATIENT FASTING? UNKNOWN Normal 05/21/2023 [facility] WBC 8.7 K/uL Normal 05/21/2023 3.7 - 10.3 [facility] IMMATURE GRANULOCYTES 1.0 % Above high normal 05/21/2023 0 - 0.45 [facility] ABSOLUTE EOS 0.1 K/uL Normal 05/21/2023 0 - 0.7 [facility] MH MPV 11.0 fL Normal 05/21/2023 8 - 12 [facility] LYMPHS 27.0 % Normal 05/21/2023 16 - 50 [facility] MCH 28.0 PG Normal 05/21/2023 27 - 34 [facility] RDW 12.7 % Normal 05/21/2023 11.1 - 13.3 [facility] HGB 13.4 g/dL Normal 05/21/2023 12.1 - 15.7 [facility] GRANULOCYTES 64.0 % Normal 05/21/2023 23 - 78 [facility] MH ABSOLUTE LYMPHS 2.4 K/uL Normal 05/21/2023 1.5 - 4.9 [facility] PLATELET COUNT 292.0 K/uL Normal 05/21/2023 150 - 480 [facility] RBC 4.72 M/uL Normal 05/21/2023 4 - 5.4 [facility] ABSOLUTE BASO 0.0 K/uL Normal 05/21/2023 0 - 0.2 [facility] MMH NUCLEATED RBC 0.0 % Normal 05/21/2023 0 - 0.2 [facility] MMH HCT 41.2 % Normal 05/21/2023 36 - 46 [facility] MCV 87.0 fL Normal 05/21/2023 83 - 102 [facility] EOSINOPHILS 2.0 % Normal 05/21/2023 0 - 6 [facility] MCHC 32.5 g/dL Normal 05/21/2023 31 - 36 [facility] MONOCYTES 6.0 % Normal 05/21/2023 0 - 12 [facility] ABSOLUTE IMMATURE GRANULOCYTES 0.1 K/uL Normal 05/21/2023 0 - 0.3 [facility] ABSOLUTE MONOS 0.5 K/uL Normal 05/21/2023 0.2 - 1.5 [facility] ABSOLUTE GRANULOCYTES 5.6 K/uL Normal 05/21/2023 2.2 - 7.3 [facility] BASOPHILS 0.0 % Normal 05/21/2023 0 - 2 [facility] ABSOLUTE NUCLEATED RBC 0.0 K/uL Normal 05/21/2023 0 - 0.012 [facility] RADHA GLABRATA RNA Negative Normal 05/07/2023 - [facility] BACTERIAL VAGINOSIS RNA Negative Normal 05/07/2023 - [facility] TRICHOMONAS VAGINALIS RNA Negative Normal 05/07/2023 - [facility] RADHA SPECIES RNA Negative Normal 05/07/2023 - [facility] History of Medication Use Medication Directions Dispensed Refills Start Date End Date Status dextromethorphan-guai fenesin (Tussin DM) 10-100 mg/5 mL liquid Take 5 mL by mouth 3 (three) times a day as needed (cough). 5 active ciclopirox (PENLAC) 8 % solution Apply topically nightly. Apply over nail and surrounding skin. Apply daily over previous coat. After seven (7) days, may remove with alcohol and continue cycle. 5 active metFORMIN (GLUCOPHAGE) 500 mg tablet Take 1 tablet (500 mg total) by mouth in the morning and 1 tablet (500 mg total) in the evening. Take with meals. 5 active EPINEPHrine (EPIPEN) 0.3 mg/0.3 mL injection Inject 0.3 mg into the muscle as needed for anaphylaxis (Anaphylaxis allergic reaction). 5 active EPINEPHrine 0.3 mg/0.3 mL Inj auto-injector Inject 0.3 mg into the muscle. 5 active levocetirizine (Xyzal) 5 mg tablet Take 1 tablet (5 mg total) by mouth nightly. 5 active valACYclovir (VALTREX) 1 gram tablet Take 1 tablet (1,000 mg total) by mouth in the morning and 1 tablet (1,000 mg total) before bedtime. Do all this for 7 days. 5 active tobramycin (TOBREX) 0.3 % ophthalmic solution Administer 1 drop to the right eye 4 (four) times a day. For 5 days 5 active ketotifen (Zaditor) 0.025 % (0.035 %) ophthalmic solution Administer 1 drop into both eyes in the morning and 1 drop before bedtime. 5 active montelukast (SINGULAIR) 10 mg tablet Take 1 tablet (10 mg total) by mouth nightly. 5 active cephALEXin (KEFLEX) 500 mg capsule Take 1 capsule (500 mg total) by mouth in the morning and 1 capsule (500 mg total) at noon and 1 capsule (500 mg total) in the evening and 1 capsule (500 mg total) before bedtime. Do all this for 10 days. 5 08/20/19 25 aborted fexofenadine (STEVE) 180 mg tablet Take 1 tablet (180 mg total) by mouth in the morning. 5 08/20/19 25 aborted ergocalciferol (VITAMIN D2) 1,250 mcg (50,000 unit) capsule Take 1 capsule (50,000 Units total) by mouth once a week. 5 active fluticasone propionate (FLOVENT DISKUS) 50 mcg/actuation diskus inhaler Inhale 1 puff in the morning. Rinse mouth with water after use to reduce aftertaste and incidence of candidiasis.Prime before first use and when inhaler has not been used for >5 days.. 5 active fluconazole (diFLUcan) 200 MG tablet Take 1 tablet (200 mg total) by mouth daily. Take 1 tablet p.o. on day 1, if symptoms are persistent can repeat dose in 72 hours. 4 06/16/20 active metroNIDAZOLE (FLAGYL) 500 MG tablet Take 1 tablet (500 mg total) by mouth 2 (two) times a day. Take with meals or food to reduce stomach upset. 4 06/15/20 active benzonatate (TESSALON) 200 MG capsule Take 1 capsule (200 mg total) by mouth 3 (three) times a day as needed for cough. 4 06/13/20 24 active azelastine (ASTELIN) 0.1 % nasal spray 1 spray into each nostril 2 (two) times a day. Use in each nostril as directed 4 active glycerin, ADULT, suppository Insert 1 suppository into the rectum daily as needed for constipation. 4 active OZEMPIC 0.25 mg or 0.5 mg (2 mg/3 mL) pen injector Inject 0.5 mg under the skin every 7 days @1800. 4 active magnesium oxideTake (oral)[id number] leNo frequency recordedoralNo set duration recordedNo set duration amount [id number] magnesium 4 active magnesium oxide 400 mg magnesium capsule Take 400 mg by mouth in the morning. 4 active predniSONETake 2 Tablet (oral) 1 time per day for 2 [id number] time per [id number] 0mg 4 active SUMAtriptan succinateTake 1 Tablet (oral) 1 time per day for 7 days may repeat once if headache persists after 2 [id number] 1 time per [id number] 5mg 4 active cetirizine (ZYRTEC) 10 mg tablet Take 1 tablet (10 mg total) by mouth daily. 4 active fluconazole (diFLUcan) 150 MG tablet Take 1 tablet (150 mg total) by mouth every third day (72 hrs). Take 1 tab PO on day 1. If symptoms persist, may take 1 tab PO again three days later. 4 06/12/20 24 active nitrofurantoin monohydrate (MACROBID) 100 MG capsule Take 1 capsule (100 mg total) by mouth 2 (two) times a day with meals. Dispense generic equivalent of MACROBID 4 01/06/20 24 active norethindrone (Aygestin) 5 mg tablet Take 1 tablet (5 mg total) by mouth in the morning. 4 active norethindrone (AYGESTIN) 5 MG tablet Take 5 mg by mouth. 4 active gabapentin (NEURONTIN) 100 mg capsule Take 1 capsule (100 mg total) by mouth nightly. 4 active venlafaxine XR (EFFEXOR-XR) 37.5 mg 24 hr capsule Take 1 capsule (37.5 mg total) by mouth in the morning. Take with a 75 mg tab for a total of 112.5 mg. 4 04/22/20 24 aborted venlafaxine XR (EFFEXOR-XR) 75 mg 24 hr capsule TAKE 1 CAPSULE (75 MG TOTAL) BY MOUTH IN THE MORNING. TAKE WITH A 37.5 MG TAB FOR A TOTAL OF 112.5 MG. 4 active Purelax 17 gram packet TAKE 17 G BY MOUTH IN THE MORNING. 4 active Eliquis 5 MG tablet Take 5 mg by mouth. 4 active ibuprofen 600 mg tablet Take 1 tablet (600 mg total) by mouth every 6 (six) hours as needed for moderate pain (4-7). 4 11/01/19 24 active oxyCODONE (ROXICODONE) 5 mg immediate release tablet Take 5 mg by mouth every 8 (eight) hours as needed for severe pain (8-10) for up to 5 doses. Max Daily Amount: 15 mg 4 10/16/19 24 active ondansetron (ZOFRAN-ODT) 4 MG disintegrating tablet Take 1 tablet (4 mg total) by mouth 3 times daily (every 8 hours) as needed for nausea or vomiting. Place tablet on tongue to dissolve. 4 active DiflucanTake 1 tablet (Oral) 1 time per day for 1 days (may repeat the dose in 72 hours)[id number] time per [id number] 3 suspended lamoTRIgine (LaMICtal) 25 MG tablet PLEASE SEE ATTACHED FOR DETAILED DIRECTIONS 3 active diazePAM (Valium) 5 mg tablet Take one tablet 2 hours prior to the procedure 3 08/28/19 24 active metroNIDAZOLE (FLAGYL) 500 mg tablet Take 1 tablet (500 mg total) by mouth in the morning and 1 tablet (500 mg total) before bedtime. Do all this for 7 days. 3 07/22/19 24 active cetirizine (ZyrTEC) 10 mg tablet Take 1 tablet (10 mg total) by mouth in the morning. TAKE 1 TABLET BY MOUTH EVERY DAY. 3 06/25/19 25 active albuterol HFA 90 mcg/actuation inhaler Inhale 2 puffs every 4 (four) hours as needed for wheezing or shortness of breath. 3 12/31/19 24 active cetirizine (ZYRTEC) 10 MG tablet Take 1 tablet (10 mg) by mouth daily 3 active lactase 9,000 unit Tablet Take 1 tablet by mouth 3 (three) times daily as needed 3 active lactase (LACTAID) 3,000 unit tablet Take 1 tablet (3,000 Units) by mouth 3 (three) times daily with meals 3 08/10/19 24 active fluticasone propionate (FLONASE) 50 mcg/actuation nasal spray 1-2 sprays by Nasal route daily 2 05/18/20 23 active polyethylene glycol (MIRALAX) 17 gram/dose powder Take 17 g by mouth daily Mixed with fluids 2 active doxycycline (VIBRA-TABS) 100 MG tablet Take 1 tablet (100 mg) by mouth 2 (two) times daily for 14 days 1 05/29/20 21 aborted metroNIDAZOLE (FLAGYL) 500 MG tablet Take 1 tablet (500 mg) by mouth 2 (two) times daily for 14 days 1 05/29/20 21 aborted AugmentinTake 1 tablet (Oral) 2 times per day for 7 [id number] times per [id number] 1 suspended ibuprofen (MOTRIN) 200 MG tablet Take 3 tablets (600 mg) by mouth every 6 (six) hours as needed for Pain Alternate every 3 hours with acetaminophen. 1 active cetirizine (ZYRTEC) 10 MG tablet Take 1 tablet (10 mg) by mouth daily 1 10/24/19 23 active albuterol (PROVENTIL HFA;VENTOLIN HFA) 90 mcg/actuation inhaler act daria cholecalciferol, vitamin D3, (Vitamin D3) 25 mcg (1,000 unit) capsule Take 1,000 Units by mouth in the morning. active clotrimazole 1 % topical cream APPLY 1 APPLICATION EXTERNALLY TWICE A DAY FOR 7 DAYS APPLY 1 APPLICATION EXTERNALLY TWICE A DAY FOR 7 DAYS completed clotrimazole 1 % vaginal cream INSERT 1 APPLICATOR INTO THE VAGINA 1 TIME EACH DAY IN THE EVENING FOR 7 DAYS. INSERT 1 APPLICATOR INTO THE VAGINA 1 TIME EACH DAY IN THE EVENING FOR 7 DAYS. completed doxycycline (VIBRAMYCIN) 100 mg capsule Take by mouth 2 (two) times a day. For 7 days active fluconazole (DIFLUCAN) 50 mg tablet Take 1 tablet (50 mg total) by mouth daily. active fluticasone propionate 50 mcg/actuation nasal spray,suspension SPRAY 1-2 SPRAYS BY NASAL ROUTE DAILY. SPRAY 1-2 SPRAYS BY NASAL ROUTE DAILY. completed Lactaid Fast Act 9,000 unit tablet TAKE 1 TABLET BY MOUTH THREE TIMES A DAY NEEDED TAKE 1 TABLET BY MOUTH THREE TIMES A DAY NEEDED completed Loestrin Fe 07/12 (28-Day) 1 mg-20 mcg (21)/75 mg (7) tablet Take 1 tablet every day by oral route. Take 1 tablet every day by oral route. completed metronidazole 500 mg tablet TAKE 500 MG TWICE A DAY BY ORAL ROUTE FOR 7 DAYS. TAKE 500 MG TWICE A DAY BY ORAL ROUTE FOR 7 DAYS. completed ondansetron HCl 4 mg tablet TAKE 1 TABLET (4 MG TOTAL) BY MOUTH EVERY 12 HOURS NEEDED FOR NAUSEA AND VOMITING TAKE 1 TABLET (4 MG TOTAL) BY MOUTH EVERY 12 HOURS NEEDED FOR NAUSEA AND VOMITING completed sulfamethoxazole 800 mg-trimethoprim 160 mg tablet TAKE 1 TABLET BY MOUTH TWICE A DAY FOR 10 DAYS TAKE 1 TABLET BY MOUTH TWICE A DAY FOR 10 DAYS completed terconazole 0.4 % vaginal cream INSERT 1 APPLICATORFUL VAGINALLY EVERY DAY FOR 7 DAYS INSERT 1 APPLICATORFUL VAGINALLY EVERY DAY FOR 7 DAYS completed VENTOLIN HFA 90 mcg/actuation HFA aerosol inhaler inhale 2 puffs every 4 hours as needed for wheezing or shortness of breath active Allergies Allergen Reaction Severity Comment Documented Date Source Statu s SHELLFISH CONTAINING PRODUCTS SWELLING 11/08/2024 [facility] e BEE POLLEN 05/30/2023 [facility] active POLLEN EXTRACT UNKNOWN/PATIENT AND FAMILY UNABLE TO DEFINE 05/30/2023 [facility] active LACTASE 10/01/2022 [facility] active LACTOSE (INTOLERANCE) 08/09/2022 [facility] [place] LEVONORGESTREL-ETHI NYL ESTRAD 05/01/2018 [facility] active SEASONAL 05/01/2018 [facility] SEASONAL ALLERGIES SNEEZING 05/01/2018 [facility] active LACTOSE UNKNOWN/PATIENT AND FAMILY UNABLE TO DEFINE [facility]IRY [facility] Problems Problem Status Onset Date Problem Type Date of Resolution Source Headache, unspecified active 2024-01-12 [facility] Encounter for test, result negative active 2024-01-09 [facility] Unspecified asthma, uncomplicated active [facility] Encounter for contraceptive management, unspecified active [facility] Acute vaginitis active 2024-02-[address] [facility] Acute pharyngitis, unspecified active 2024-01-12 [facility] S/P reduction mammoplasty active 2022-09-24 [facility]Act [facility] Other pulmonary embolism without acute cor pulmonale active [facility]Act [facility] Asthma active 2020-04-10 [facility]Act [facility] PCOS (polycystic ovarian syndrome) active 2023-12-22 [facility]Act [facility] Major depressive disorder, recurrent episode, severe (HC Code) active 2021-08-08 [facility]Act [facility] Endometriosis active 2023-01-14 [facility]Act [facility] Chronic migraine without aura without status migrainosus, not intractable active 2024-01-19 [facility]Act [facility] Pelvic pain in female active 2023-11-18 [facility]Act [facility] Acute vaginitis active EncounterDiagnosisAct [facility] Retroverted uterus active 2022-08-20 [facility] PTSD (post-traumatic stress disorder) active 2023-04-04 [facility]Act [facility] Acute pulmonary embolism without acute cor pulmonale (HC Code) active 2023-12-22 ProblemAct [facility] Mammogram abnormal active 2023-02-27 ProblemAct [facility] History of ear infections as a child active 2024-10-28 ProblemAct [facility] Nail fungus active 2024-12-29 ProblemAct [facility] Right lateral abdominal pain active 2024-01-19 ProblemAct [facility] Chronic midline thoracic back pain active 2020-09-11 ProblemAct [facility] Pain associated with defecation active 2024-02-06 ProblemAct [facility] Vaginal discharge active 2023-05-07 ProblemAct [facility] Moderate episode of recurrent major depressive disorder active 2023-04-04 ProblemAct [facility] Seasonal allergies active 2022-08-20 ProblemAct [facility] Weight loss active 2023-12-22 ProblemAct [facility] Endometriosis of peritoneum active 2023-01-14 ProblemAct [facility] Suicidal ideation active 2022-06-16 ProblemAct [facility] Urine frequency active 2022-12-[address] [facility] Rectal bleeding active 2024-02-[address] [facility] History of pulmonary embolism active 2023-12-22 ProblemAct [facility] Allergic rhinitis active 2024-10-28 ProblemAct [facility] History of myringotomy active 2022-12-06 ProblemAct [facility] Acute pharyngitis, unspecified active 2024-01-12 ProblemAct [facility] Encounter for contraceptive management, unspecified active ProblemAct [facility] Encounter for test, result negative active 2024-01-09 ProblemAct [facility] Acute vaginitis active 2024-01-[address] [facility] Other asthma active 2023-10-09 ProblemAct [facility]E Headache, unspecified active 2024-01-12 ProblemAct [facility] Acute vaginitis active 2024-02-[address] [facility] Unspecified asthma, uncomplicated active ProblemAct [facility] Other pulmonary embolism without acute cor pulmonale active ProblemAct [facility] NE Eczema active 2020-04-10 ProblemAct [facility] Retroverted uterus active 2022-08-20 ProblemAct [facility] Macromastia active 2020-09-11 ProblemAct [facility] C Intolerance to lactose active 2022-08-20 ProblemAct [facility] S/P reduction mammoplasty active 2022-09-24 ProblemAct [facility] Seasonal allergy active 2022-08-20 ProblemAct [facility] Immunizations Vaccine Date Source Lot Number Status PPD Test 08/17/2023 [facility] [id number] completed PPD Test 08/17/2023 [facility] [id number] completed Covid-19 Moderna Seasonal Va ccine (12y And Older) 08/04/2023 [facility] [id number] completed Covid-19 Moderna Seasonal Va ccine (12y And Older) 08/04/2023 [facility] [id number] completed Influenza, Injectable, Quadr ivalent, Preservative Free 08/09/2022 [facility] [id number] completed Influenza, Injectable, Quadr ivalent, Preservative Free 08/09/2022 [facility] 2A3H9 completed Influenza, Quadrivalent 08/09/2022 [facility] 2A3H9 c ompleted Influenza, Quadrivalent 08/09/2022 [facility] 2A3H9 c ompleted Influenza, Injectable, Quadr ivalent, Preservative Free 05/14/2021 [facility] [id number] completed Influenza, Injectable, Quadr ivalent, Preservative Free 05/14/2021 [facility] 579C9 completed Influenza, Quadrivalent 05/14/2021 [facility] 579C9 c ompleted Influenza, Quadrivalent 05/14/2021 [facility] 579C9 c ompleted Influenza, Injectable, Quadr ivalent, Preservative Free 05/24/2020 [facility] G2RX7 completed Influenza, Injectable, Quadr ivalent, Preservative Free 05/24/2020 [facility] G2RX7 completed Influenza, Quadrivalent 05/24/2020 [facility] G2RX7 c ompleted Influenza, Quadrivalent 05/24/2020 [facility] G2RX7 c ompleted Meningococcal MCV4P 05/24/2020 [facility] [id number] compl eted Meningococcal MCV4P 05/24/2020 [facility] [id number] compl eted Influenza, Injectable, Quadr ivalent, Preservative Free 04/07/2019 [facility] 55GY9 completed Influenza, Injectable, Quadr ivalent, Preservative Free 04/07/2019 [facility] 55GY9 completed Influenza, Quadrivalent 04/07/2019 [facility] 55GY9 c ompleted Influenza, Quadrivalent 04/07/2019 [facility] 55GY9 c ompleted Influenza, Injectable, Quadr ivalent, Preservative Free 03/24/2018 [facility] 4DY9K completed Influenza, Injectable, Quadr ivalent, Preservative Free 03/24/2018 [facility] 4DY9K completed Influenza, Quadrivalent 03/24/2018 [facility] 4DY9K c ompleted Influenza, Quadrivalent 03/24/2018 [facility] 4DY9K c ompleted Hpv Vaccine 9-valent 08/13/2017 [facility] [id number] comp leted Hpv Vaccine 9-valent 08/13/2017 [facility] [id number] comp leted HPV, Quadrivalent 08/13/2017 [facility] complet ed HPV, Quadrivalent 08/13/2017 [facility] complet ed Influenza, Injectable, Quadr ivalent, Preservative Free 04/23/2017 [facility] 4HP3Y completed Influenza, Injectable, Quadr ivalent, Preservative Free 04/23/2017 [facility] 4HP3Y completed Influenza, Quadrivalent 04/23/2017 [facility] 4HP3Y c ompleted Influenza, Quadrivalent 04/23/2017 [facility] 4HP3Y c ompleted Hpv Vaccine 9-valent 01/20/2017 [facility] [id number] comp leted Hpv Vaccine 9-valent 01/20/2017 [facility] [id number] comp leted HPV, Quadrivalent 01/20/2017 [facility] complet ed HPV, Quadrivalent 01/20/2017 [facility] complet ed Hep A, Unspecified 09/11/2015 [facility] comple diana Hep A, Unspecified 09/11/2015 [facility] comple diana Influenza, Unspecified 09/11/2015 [facility] co mpleted Influenza, Unspecified 09/11/2015 [facility] co mpleted Meningococcal MCV4, Unspecified 08/31/2014 [facility] completed Meningococcal MCV4, Unspecified 08/31/2014 [facility] completed Tdap 08/31/2014 [facility] completed Tdap 08/31/2014 [facility] completed Influenza Seasonal, Injectable 03/30/2014 [facility] completed Influenza, Quadrivalent 03/30/2014 [facility] c ompleted Influenza, Quadrivalent 03/30/2014 [facility] c ompleted Influenza LAIV (Nasal) 07/08/2013 [facility] co mpleted Influenza LAIV (Nasal) 07/08/2013 [facility] co mpleted Influenza Nasal, Unspecified Formulation 07/08/2013 [facility] completed Influenza LAIV (Nasal) 07/23/2012 [facility] co mpleted Influenza LAIV (Nasal) 07/23/2012 [facility] co mpleted Influenza Nasal, Unspecified Formulation 07/23/2012 [facility] completed H1N1 Inj 05/05/2009 [facility] completed H1N1 Inj 05/05/2009 [facility] completed Influenza LAIV (Nasal) 05/05/2009 [facility] co mpleted Influenza LAIV (Nasal) 05/05/2009 [facility] co mpleted Influenza Nasal, Unspecified Formulation 05/05/2009 [facility] completed DTaP 01/28/2008 [facility] completed DTaP 01/28/2008 [facility] completed DTaP, Unspecified 01/28/2008 [facility] complet ed DTaP, Unspecified 01/28/2008 [facility] complet ed Hep A, 2 Dose 01/28/2008 [facility] completed Hep A, 2 Dose 01/28/2008 [facility] completed Hep A, Unspecified 01/28/2008 [facility] comple diana Hep A, Unspecified 01/28/2008 [facility] comple diana IPV 01/28/2008 [facility] completed IPV 01/28/2008 [facility] completed MMR 12/10/2006 [facility] completed MMR 12/10/2006 [facility] completed Varicella 12/10/2006 [facility] completed Varicella 12/10/2006 [facility] completed DTaP 01/01/2005 [facility] completed DTaP 01/01/2005 [facility] completed DTaP, Unspecified 01/01/2005 [facility] complet ed DTaP, Unspecified 01/01/2005 [facility] complet ed HiB 01/01/2005 [facility] completed HiB 01/01/2005 [facility] completed Pneumococcal Conjugate PCV-7 01/01/2005 [facility] completed Pneumococcal Conjugate PCV-7 01/01/2005 [facility] completed MMR 07/23/2004 [facility] completed MMR 07/23/2004 [facility] completed Varicella 07/23/2004 [facility] completed Varicella 07/23/2004 [facility] completed DTaP 02/20/2004 [facility] completed DTaP 02/20/2004 [facility] completed DTaP, Unspecified 02/20/2004 [facility] complet ed DTaP, Unspecified 02/20/2004 [facility] complet ed Hep B, Unspecified 02/20/2004 [facility] comple diana Hep B, Unspecified 02/20/2004 [facility] comple daina HiB 02/20/2004 [facility] completed HiB 02/20/2004 [facility] completed IPV 02/20/2004 [facility] completed IPV 02/20/2004 [facility] completed Pneumococcal Conjugate PCV-7 02/20/2004 [facility] completed Pneumococcal Conjugate PCV-7 02/20/2004 [facility] completed DTaP 2003 [facility] completed DTaP 2003 [facility] completed DTaP, Unspecified 2003 [facility] complet ed DTaP, Unspecified 2003 [facility] complet ed Hep B, Unspecified 2003 [facility] comple diana Hep B, Unspecified 2003 [facility] comple diana HiB 2003 [facility] completed HiB 2003 [facility] completed IPV 2003 [facility] completed IPV 2003 [facility] completed Pneumococcal Conjugate PCV-7 2003 [facility] completed Pneumococcal Conjugate PCV-7 2003 [facility] completed DTaP 2003 [facility] completed DTaP 2003 [facility] completed DTaP, Unspecified 2003 [facility] complet ed DTaP, Unspecified 2003 [facility] complet ed Hep B, Unspecified 2003 [facility] comple diana Hep B, Unspecified 2003 [facility] comple diana HiB 2003 [facility] completed HiB 2003 [facility] completed IPV 2003 [facility] completed IPV 2003 [facility] completed Pneumococcal Conjugate PCV-7 2003 [facility] completed Pneumococcal Conjugate PCV-7 2003 [facility] completed Hep B, Unspecified 2003 [facility] comple diana Hep B, Unspecified 2003 [facility] comple diana Encounters Encounter Type Encounter Reason Primary Diagnosis Location Date Ambulatory Vaginitis Vaginitis [facility] 03/20/2025 Ambulatory Pain in throat Pain in throat [facility] 02/22 Ambulatory Vaginitis and vulvovaginitis, unspecified Vaginitis and vulvovaginitis, unspecified [facility] 03/08/2025 Ambulatory Unspecified lump in left breast, subareo Unspecified lump in left breast, subareolar [facility] 02/10/2025 Ambulatory Contact with or exposure to other viral diseases(V01.79) Contact with or exposure to other viral diseases(V01.79) [facility] 02/09/2025 Ambulatory Vaginal Discharge Vaginal Discharge [facility] 02/07/2025 Ambulatory Vaginitis and vulvovaginitis, unspecified Vaginitis and vulvovaginitis, unspecified [facility] 01/18/2025 Ambulatory Urinary Tract Infection Urinary Tract Infection [facility] 12/31/2024 Ambulatory Encounter for screening for infections w Encounter for screening for infections with a predominantly sexual mode of transmission [facility] 12/30/2024 Ambulatory Encounter for gynecological examination Encounter for gynecological examination (general) (routine) without abnormal findings [facility] 12/30/2024 Ambulatory Encounter for follow-up examination afte Encounter for follow-up examination after completed treatment for conditions other than malignant neoplasm [facility] 12/29/2024 Ambulatory Tinea unguium Tinea unguium [facility] 2024 Emergency Acute upper respiratory infection, unspe Acute upper respiratory infection, unspecified [facility] 12/03/2024 Ambulatory Illness Illness [facility] 12/01/2024 Ambulatory Contusion of face, scalp, and neck except eye(s) Contusion of face, scalp, and neck except eye(s) [facility] 11/29/2024 Ambulatory Encounter for follow-up examination afte Encounter for follow-up examination after completed treatment for conditions other than malignant neoplasm [facility] 11/26/2024 Ambulatory Encounter for follow-up examination afte Encounter for follow-up examination after completed treatment for conditions other than malignant neoplasm [facility] 11/17/2024 Ambulatory Encounter for other preprocedural examin Encounter for other preprocedural examination [facility] 10/29/2024 Ambulatory Allergic rhinitis, unspecified Allergic rhinitis, unspecified [facility] 10/28/2024 Ambulatory Allergic rhinitis, unspecified Allergic rhinitis, unspecified [facility] 10/28/2024 Ambulatory Vaginitis and vulvovaginitis, unspecified Vaginitis and vulvovaginitis, unspecified [facility] 10/26/2024 Ambulatory Injury of conjunctiv a and corneal abrasion without foreign body, right eye, initial encounter Injury of conjunctiva and corneal abrasion without foreign body, right eye, initial encounter [facility] 10/05/2024 Emergency Acute cystitis with hematuria Acute cystitis with hematuria [facility] 09/11/2024 Ambulatory Dysuria Dysuria [facility] 09/09/2024 Ambulatory Other seasonal allergic rhinitis Other seasonal allergic rhinitis [facility] 08/20/2024 Emergency Fever, unspecified Fever, unspecified [facility] 2024 Ambulatory Nonscarring hair loss, unspecified Nonscarring hair loss, unspecified [facility] 07/19/2024 Ambulatory Annual Exam Annual Exam [facility] 07/19/2024 Ambulatory Encounter for screening for infections with a predominantly sexual mode of transmission Encounter for screening for infections with a predominantly sexual mode of transmission [facility] [employer] 07/13/2024 Ambulatory Pelvic and perineal pain Pelvic and perineal pain [facility] 06/25/2024 Ambulatory 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 [facility] 06/22/2024 Ambulatory Screening examinatio n for STI Screening examination for STI [facility] 06/21/2024 Ambulatory STD Infection STD Infection [facility] 06/13/2024 Ambulatory Acute upper respiratory infection, unspecified Acute upper respiratory infection, unspecified [facility] 06/05/2024 Ambulatory Leukorrhea, not specified as infective Leukorrhea, not specified as infective [facility] 05/13/2024 Ambulatory Chronic migraine without aura, not intra Chronic migraine without aura, not intractable, without status migrainosus [facility] 04/22/2024 Ambulatory Vaginitis and vulvovaginitis, unspecified Vaginitis and vulvovaginitis, unspecified [facility] 04/08/2024 Ambulatory Unspecified sexually transmitted disease Unspecified sexually transmitted disease [facility] 04/02/2024 Emergency Other constipation [facility] Emergency Constipation Constipation [facility] 03/26/2024 Ambulatory Unspecified hypertrophy of vulva Unspecified hypertrophy of vulva [facility] 03/22/2024 Ambulatory Encounter for screening for infections w Encounter for screening for infections with a predominantly sexual mode of transmission [facility] 03/09/2024 Ambulatory Constipation, unspecified Constipation, unspecified [facility] 02/24/2024 Ambulatory Vaginal Discharge Vaginal Discharge [facility] 02/21/2024 Ambulatory Polycystic ovarian syndrome Polycystic ovarian syndrome [facility] 02/18/2024 Ambulatory Other specified symptoms and signs invol Other specified symptoms and signs involving the digestive system and abdomen [facility] 02/06/2024 Ambulatory Other specified symptoms and signs invol Other specified symptoms and signs involving the digestive system and abdomen [facility] 02/06/2024 Ambulatory Other specified symptoms and signs invol Other specified symptoms and signs involving the digestive system and abdomen [facility] 02/06/2024 Ambulatory Other abnormal and inconclusive findings Other abnormal and inconclusive findings on diagnostic imaging of breast [facility] 02/03/2024 Ambulatory Unspecified abdomina l pain Unspecified abdominal pain [facility] 01/29/2024 Ambulatory Unspecified abdomina l pain Unspecified abdominal pain [facility] 01/29/2024 Ambulatory Chest Pain Chest Pain [facility] 01/19/2024 Emergency SOB SOB [facility] 01/13/2024 Ambulatory [facility] 01/12/2024 Ambulatory [facility] 01/08/2024 Ambulatory Frequency of micturition Frequency of micturition [facility] 12/31/2023 Ambulatory Encounter for screening for infections w Encounter for screening for infections with a predominantly sexual mode of transmission [facility] 12/29/2023 Ambulatory Encounter for gynecological examination Encounter for gynecological examination (general) (routine) without abnormal findings [facility] 12/29/2023 Ambulatory [facility] 12/23/2023 Ambulatory Weight Problem Weight Problem [facility] 06/2023 Ambulatory [facility] 12/16/2023 Ambulatory Encounter for routin e checking of intrau Encounter for routine checking of intrauterine contraceptive device [facility] 12/16/2023 Ambulatory Pelvic and perineal pain Pelvic and perineal pain [facility] 12/02/2023 Ambulatory [facility] 11/18/2023 Ambulatory Encounter for remova l and reinsertion of Encounter for removal and reinsertion of intrauterine contraceptive device [facility] 11/18/2023 Ambulatory Encounter for test, result neg Encounter for test, result negative [facility] 11/12/2023 Emergency Abnormal uterine and vaginal bleeding, u Abnormal uterine and vaginal bleeding, unspecified [facility] 10/29/2023 Ambulatory Other pulmonary embolism without acute c Other pulmonary embolism without acute cor pulmonale [facility] 10/22/2023 Ambulatory Endometriosis of pelvic peritoneum, unsp Endometriosis of pelvic peritoneum, unspecified [facility] 10/22/2023 Emergency DIZZY/LOW BLOOD PRESSURE DIZZY/LOW BLOOD PRESSURE [facility] 10/17/2023 Ambulatory Other pulmonary embolism without acute c Other pulmonary embolism without acute cor pulmonale [facility] 10/16/2023 Inpatient PULMONARY EMBOLISM PULMONARY EMBOLISM [facility] 10/11/2023 Ambulatory Endometriosis of pelvic peritoneum, unsp Endometriosis of pelvic peritoneum, unspecified [facility] 10/09/2023 Ambulatory [facility] 10/02/2023 Ambulatory Abnormal uterine and vaginal bleeding, u Abnormal uterine and vaginal bleeding, unspecified [facility] 10/01/2023 Ambulatory Endometriosis of pelvic peritoneum, unsp Endometriosis of pelvic peritoneum, unspecified [facility] 10/01/2023 Ambulatory Pelvic and perineal pain Pelvic and perineal pain [facility] 09/16/2023 Ambulatory [facility] 08/29/2023 Ambulatory Unspecified lump in unspecified breast Unspecified lump in unspecified breast [facility] 08/07/2023 Ambulatory Annual Exam Annual Exam [facility] [employer] 08/04/2023 Emergency Unspecified abdomina l pain Unspecified abdominal pain [facility] 08/03/2023 Emergency ABD PAIN ABD PAIN [facility] 08/03/2023 Emergency Dysmenorrhea, unspecified Dysmenorrhea, unspecified [facility] [employer] 07/12/2023 Ambulatory Irregular menstruation, unspecified Irregular menstruation, unspecified [facility] 05/30/2023 Emergency HIGH BLOOD PRESSURE / RECENT MED CHANGE HIGH BLOOD PRESSURE / RECENT MED CHANGE [facility] 05/21/2023 Ambulatory Endometriosis of pelvic peritoneum, unsp Endometriosis of pelvic peritoneum, unspecified [facility] [employer] 05/14/2023 Ambulatory [facility] 05/09/2023 Ambulatory Other specified noninflammatory disorder Other specified noninflammatory disorders of vagina [facility] 05/07/2023 Ambulatory Encounter for test, result negative [facility] 04/10/2023 Ambulatory [facility] 03/24/2023 Ambulatory Other abnormal and inconclusive findings Other abnormal and inconclusive findings on diagnostic imaging of breast [facility] 02/27/2023 Ambulatory Endometriosis of pelvic peritoneum, unsp Endometriosis of pelvic peritoneum, unspecified [facility] 02/21/2023 Ambulatory Abnormal uterine and vaginal bleeding, u Abnormal uterine and vaginal bleeding, unspecified [facility] 02/14/2023 Ambulatory [facility] 02/12/2023 Ambulatory Unspecified lump in the left breast, uns Unspecified lump in the left breast, unspecified quadrant [facility] 02/12/2023 Ambulatory Unspecified lump in the left breast, uns Unspecified lump in the left breast, unspecified quadrant [facility] 02/12/2023 Ambulatory Encounter for screening for infections w Encounter for screening for infections with a predominantly sexual mode of transmission [facility] [employer] 02/04/2023 Ambulatory STI Screening STI Screening [facility] 2022 Ambulatory Unspecified lump in the left breast, uns Unspecified lump in the left breast, unspecified quadrant [facility] [employer] 01/27/2023 Ambulatory [facility] 01/23/2023 Ambulatory Consult [facility] [employer] 01/14/2023 Ambulatory Frequency of micturition [facility] 01/08/2023 [facility] 12/30/2022 Ambulatory Encounter for screening for infections with a predominantly sexual mode of transmission [facility] 12/26/2022 Ambulatory Encounter for gynecological examination (general) (routine) without abnormal findings [facility] 12/26/2022 Ambulatory [facility] 11/27/2022 Ambulatory Frequency of micturition [facility] 10/01/2022 Ambulatory [facility] 09/24/2022 Ambulatory [facility] 09/15/2022 Ambulatory [facility] 09/09/2022 [facility] 09/09/2022 [facility] 09/02/2022 Ambulatory [facility] 08/20/2022 [facility] 08/13/2022 [facility] 08/12/2022 Observation Unspecified mood (affective) disorder [facility] 06/16/2022 [facility] 05/31/2022 [facility] 04/05/2022 [facility] 04/05/2022 [facility] 03/31/2022 [facility] 03/26/2022 [facility] 03/21/2022 [facility] 03/06/2022 [facility] 02/19/2022 [facility] 02/16/2022 Ambulatory [facility] 01/24/2022 Ambulatory [facility] 01/15/2022 Ambulatory [facility] 01/05/2022 Ambulatory [facility] 10/30/2021 Ambulatory [facility] 10/22/2021 Ambulatory [facility] 10/19/2021 Ambulatory [facility] 10/16/2021 Ambulatory Obesity, unspecified [facility] 07/06/2021 [facility] 06/08/2021 Ambulatory [facility] 06/07/2021 Ambulatory [facility] 06/06/2021 Ambulatory [facility] 05/30/2021 Ambulatory [facility] 04/05/2021 Ambulatory [facility] 03/29/2021 Ambulatory [facility] 03/29/2021 Care Team Organization Name Specialty Phone Email Start Date End Da te [facility] [employer] ([employer]) [facility] 02/07/2025 [facility] 11/03/2024 [facility] [employer] ALPHONSE Mult[employer] 10/08/2024 [facility] 04/08/2024 [facility] DARIUS MEJÍA Primary [facility] 12/31/2023 [place] [facility] 10/21/2023 [facility] No provided Primary Care 10/11/2023 [facility] 10/07/2023 024 [facility] Not Found Primary Care 07/13/2023 [facility] 05/30/2023 09/08/2024 [facility] NO PCP Primary Care 05/30/2023 05/30/2023 [facility] NO PCP Primary Care 05/30/2023 05/30/2023 [facility] 05/28/2023 05/28/2023 [facility] Primary Care 05/21/2023 08/08/19 [facility] JEFFREY MILLER Primary Care 05/21/2023 [facility] 01/29/2023 [facility] Jeffrey Miller Primary [facility] 01/08/2023 [facility] DARIUS MEJÍA Primary Care 023 12/30/2022 [facility] LETITIA CHU Primary Care 07/0 11/202212/26/2022 [facility] JEFFREY MILLER, Primary Care 11/15/20222022 [facility] Care [facility] 10/01/2022 [facility] 08/22/202210/21 [facility] 08/20/202208/20 [facility] 06/17/2022 [facility] 06/16/2022 06/16/2022 [facility] 04/24/2022 [facility] Jeffrey Miller [facility] 04/08/2022 [facility] 022 07/25/2021 [facility] 022 [facility] 05/28/202102/08 [facility], [facility] 03/29/202103/29 [facility]
--- OUTSIDE RECORDS SUMMARY | 2025-03-21 20:05 | XMS_ITS | Encounter Summary ---
Author Organization [facility] Address [address] [place] [address] Care Team Providers Care Cut Press Operator Name Role Phone Lacey Miller MD Primary Care Provider Valentina Saldaña PhD Unavailable Lillian Lanier MD Primary Care Provider [phone] Reason for Visit * Reason Comments Medication Refill Encounter Details Date Type Department Care Team ([facility] Contact Info) Description 07/12/2021 Refill [facility] [address] [place] 1st Floor [place], [place] [phone] Lacey Miller MD [address] [place] [phone] Seasonal allergies (Primary Dx) Social History Tobacco Use Types [...] as of this encounter Visit Diagnoses Diagnosis Seasonal allergies- Primary Allergic rhinitis, cause unspecified documented in this encounter Care Teams Cut Press Operator Relationship Specialty Start Date End Date Lacey Miller MD 800 [place] [address] PCP - General 02/20/16 10/09/23 Lillian Lanier MD 599 [facility] [address] [place] [address] PCP - General 10/10/23 Valentina Saldaña, PhD [address] [place] [address] Psychologist Psychology 05/22/21 documented as of this encounter
--- OUTSIDE RECORDS SUMMARY | 2025-03-21 20:05 | XMS_ITS | Encounter Summary ---
Author Organization [facility] Address [address] [place] [address] Care Team Providers Care Buyer Grain Name Role Phone Lacey Miller MD Primary Care Provider [phone] Valentina Saldaña PhD Unavailable Lillian Lanier MD Primary Care Provider [phone] Reason for Visit * Reason Comments Medication Refill Encounter Details Date Type Department Care Team ([facility] Contact Info) Description 11/08/2018 Refill [facility] Primary Care [address] 1st Floor [place], [place] [phone] Lacey Miller MD [address] [place] [phone] Dysmenorrhea in adolescent Social History Tobacco Use Types Packs/Day Years [...] as of this encounter Visit Diagnoses Diagnosis Dysmenorrhea in adolescent documented in this encounter Care Teams Buyer Grain Relationship Specialty Start Date End Date Lacey Miller MD [address] [place] [address] PCP - General 02/20/16 10/09/23 Lillian Lanier MD 599 [facility] [address] [place] [address] PCP - General 10/10/23 Valentina Saldaña, PhD [address] [place] [address] Psychologist Psychology 05/22/21 documented as of this encounter
--- OUTSIDE RECORDS SUMMARY | 2025-03-21 20:05 | XMS_ITS | Clinical Summary ---
Author Organization [facility] Address [address] [place] [address] Care Team Providers Care Gravel Roofer Name Role Phone Lacey Miller MD Unavailable [phone] Ivan Cunha MD Primary Care Provider [phone] Allergies Active Allergy Reactions Criticality Noted Date Comments Lactose Unknown/Patient and Family Unable to Define Medium 05/30/2023 Pollen Extract Unknown/Patient and Family Unable to Define Medium 05/30/2023 Medications * This document contains information received from the source organization and may not represent a complete record from that organization. Ozempic, 0.25 or 0.5 MG/DOSE, 2 MG/3ML prefilled pen injection Inject 0.5 mg under the skin once a week. 4 Active clotrimazole (GYNE-LOTRIMIN) 1 % vaginal creamIndications :Vaginal gagandeep Insert 1 applicator into the vagina nightly. Use for 7 nights 45 g 4 Active Additional Information Patient not taking.Reported on 03/20/2025 azelastine (ASTELIN) 0.1 % nasal sprayIndications :URI with cough and congestion 1 spray into each nostril 2 (two) times a day. Use in each nostril as directed 30 mL 4 Active Additional Information Patient not taking.Reported on 03/20/2025 benzonatate (TESSALON) 200 MG capsuleIndicatio ns:URI with cough and congestion Take 1 capsule (200 mg total) by mouth 3 (three) times a day as needed for cough. 21 capsule 4 Active Additional Information Patient not taking.Reported on 03/20/2025 tobramycin (TOBREX) 0.3 % ophthalmic solutionIndicati ons:Injury of right conjunctiva, initial encounter Administer 1 drop to the right eye 4 (four) times a day. For 5 days 5 mL 5 Active Additional Information Patient not taking.Reported on 03/20/2025 benzonatate (TESSALON) 200 MG capsuleIndicatio ns:Viral URI Take 1 capsule (200 mg total) by mouth 3 (three) times a day as needed for cough. 20 capsule 5 Active Additional Information Patient not taking.Reported on 03/20/2025 nystatin (MYCOSTATIN) [id number] UNIT/GM creamIndications :Vaginal discharge Apply topically 2 (two) times a day as needed (external vaginal irritation yeast). 30 g 5 03/27/20 25 Active fluconazole (diFLUcan) 150 MG tabletIndication s:Vaginal discharge Take 1 tablet (150 mg total) by mouth as needed (take one today may repeat in 72 hrs if yeast symptoms persist). 2 tablet 5 03/23/20 25 Active phenazopyridine (PYRIDIUM) 200 MG tabletIndication s:Acute cystitis without hematuria Take 1 tablet (200 mg total) by mouth 3 (three) times a day as needed for bladder spasms. Take with food. Stains urine dark orange. 10 tablet 5 03/22/20 25 Active nitrofurantoin monohydrate (MACROBID) 100 MG capsuleIndicatio ns:Acute cystitis without hematuria Take 1 capsule (100 mg total) by mouth 2 (two) times a day with meals. Dispense generic equivalent of MACROBID 14 capsule 5 03/27/20 25 Active Active Problems Problem Noted Date Diagnosed Date Acute pulmonary embolism without acute cor pulmo nale 12/22/2023 12/31/2023 Overview (12/31/2023): Last Assessment & Plan: Patient recently underwent laparoscopic procedure for endometriosis on 10/05/2023. Developed worsening shortness of breath and right-sided chest pain and was admitted to [facility] 10/11/2023. Patient was found to have a [...] - Patient was scheduled follow-up in January PCOS (polycystic ovarian syndrome) 12/22/2023 12/31/2023 Pelvic pain in female 11/18/2023 12/31/2023 Moderate episode of recurrent major depressive d isorder 04/04/2023 12/31/2023 Overview (12/31/2023): Last Assessment & Plan: Psychological condition is improving with treatment. Continue current treatment regimen. Psychological condition will be reassessed in 3 months. PTSD (post-traumatic stress disorder) 04/04/2023 12/31/2023 Overview (12/31/2023): Last Assessment & Plan: Psychological condition is improving with treatment. Continue current treatment regimen. Psychological condition will be reassessed in 3 months. Endometriosis 01/14/2023 12/31/2023 Seasonal allergies 08/20/2022 12/31/2023 Suicidal ideation 06/16/2022 Chronic midline thoracic back pain 09/11/2020 12/31/2023 Overview (12/31/2023): Added automatically from request for surgery [id number] Added automatically from request for surgery [id number] Added automatically from request for surgery [id number] Added automatically from request for surgery [id number] Asthma 04/10/2020 12/31/2023 Eczema 04/10/2020 12/31/2023 Encounters Date Type Department Care Team Description 03/20/2025 11:30 AM EDT Office Visit [facility] [address] [place] [address] John Johnson MD Mule, Christina N, APRN Vaginal discharge (Primary Dx); Acute cystitis without hematuria 03/20/2025 Travel 02/07/2025 4:35 PM EDT Office Visit [facility] [address] [place] [address] John Johnson MD Ashe, Alexander, PA Acute vaginitis (Primary Dx) 02/07/2025 Travel 12/31/2024 3:40 PM EDT Office Visit [facility] URGENT [address] [phone] John Johnson MD Voss, Katherine E, PA-C Frequent urination (Primary Dx) 12/31/2024 Travel from Last 3 Months Social History Tobacco Use Types Packs/Day Years Used Date Smoking Tobacco: Never Assessed Tobacco Cessation:Counseling Given: Not Answered Comments No Sex and Gender Information Value Date Recorded Sex Assigned at Female 06/16/2022 10:51 PM EST Legal Sex Female 7:21 PM EST Gender Identity Female 06/16/2022 10:51 PM EST Sexual Orientation Heterosexual (straight) 06/16 10:51 PM EST Last Filed Vital Signs Vital Sign Reading Time Taken Comments Blood Pressure 109/74 03/20/2025 11:43 AM EDT Pulse 83 03/20/2025 11:43 AM EDT Temperature 36.2 C (97.2 F) 03/20/2025 11:43 AM EDT Respiratory Rate 18 03/20/2025 11:43 AM EDT Oxygen Saturation 98% 03/20/2025 11:43 AM EDT Inhaled Oxygen Concentration - - Weight 97.5 kg (215 lb) 02/07/2025 4:40 PM EDT Height 160 cm (5' 3 ) 02/07/2025 4:40 PM EDT Body Mass Index 38.09 02/07/2025 4:40 PM EDT Plan of Treatment Health Maintenance Due Date Last Done Comments HPV Vaccines (1 - 3-dose series) 2018 DTaP/Tdap/Td Vaccines (1 - Tdap) 2022 Hepatitis B Vaccines (1 of 3 - 19+ 3-dose series) 2022 Pneumococcal Vaccine: Pediat [place] (0-5 Years) and At-Risk Patients (6 to 49 Years) (1 of 2 - PCV) 2022 Pap Smear (Ages 21-65) 2024 Influenza Vaccine 01/21/2025 08/09/2022, , 05/14/2021, Additional history exists COVID-19 Vaccine (2024-2 6 season) 2025 08/04/2023, 08/03/2021, 07/06/2021 Hepatitis C Virus Screening Completed 04/02/2024, 0 08/31/2022 HIV Screening Completed 12/30/2024, 03/23, 12/29/2023, Additional history exists Goals Goal Patient Goal Type Associated Problems [...] +15.0 microvolt's, uV respectively x 12 weeks. Procedures Procedure Name Priority Date/Time Associated Diagnosis Comments POCT URINALYSIS DIPSTICK, AUTOMATED Routine 03/20/2025 11:57 AM EDT Vaginal discharge SURESWAB ADVANCED VAGINITIS PLUS, TMA Routine 03/20/2025 11:56 AM EDT Vaginal discharge SURESWAB ADVANCED VAGINITIS PLUS, TMA Routine 02/07/2025 4:48 PM EDT Acute vaginitis POCT , URINE (CHARGE) Routine 12/31/2024 4:40 PM EDT Frequent urination POCT URINALYSIS DIPSTICK, AUTOMATED Routine 12/31/2024 4:38 PM EDT Frequent urination URINE CULTURE Routine 12/31/2024 4:37 PM EDT Frequent urination HIV 1/2 AG/AB CMIA REFLEX TO CONFIRMATION Routine 04/02/2024 1:18 PM EDT STD (female) HEPATITIS C VIRUS (HCV) ANTIBODY Routine 04/02/2024 1:18 PM EDT STD (female) from Last 3 Months or Most Recently Relevant to Health Maintenance Results * (ABNORMAL) POCT Urinalysis Dipstick, Automated (03/20/2025 11:57 AM EDT) Only the most recent of2 resultswithin the time period is included. Source, UA Clean Catch Color, UA Yellow [...] Esterase, UA Large (+++)(A) Negative Lot Number [id number] Staff Electronic Warfare Officer Pass Pass Urine 03/20/2025 11:5 7 AM EDT Elena Hawthorne APRN POINT OF CARE TEST ORDERAB LES Final Result * (ABNORMAL) [facility] Advanced Vaginitis Plus, TMA (03/20/2025 11:56 AM EDT) Only the most recent of2 resultswithin the time period is included. Pathologist [facility] Adv Bacterial Vaginosis (BV), TMA NEGATIVE NEGATIVE [facility] Gagandeep Species DETECTED(A) NOT DETECTED [facility] Gagandeep Glabrata NOT DETECTED NOT DETECTED [facility] Comment: Gagandeep species C. albicans, C. tropicalis, C. parapsilosis, and/or C. dubliniensis can be detected, but not differentiated, in the Gagandeep spp. result. Trichomonas Vaginalis (TV), TMA NOT DETECTED NOT DETECTED [facility] Chlamydia Trachomatis RNA, TMA NOT DETECTED NOT DETECTED [facility] Neisseria Gonorrhoeae RNA, TMA NOT DETECTED NOT DETECTED [facility] Comment: For additional information, please refer to https://education.YuMingle/faq/JPF460 (This link is being provided for information/ educational purposes only.) 03/20/2025 11:5 6 AM EDT 03/21/2025 3:36 AM EDT Elena Hawthorne APRN LAB AMB MICRO ORDERABLES F inal Result [facility] [address] [place] [phone] * POCT , Urine (12/31/2024 4:40 PM EDT) Preg Test, Ur Negative Negative Lot Number [id number] Staff Electronic Warfare Officer Pass Pass Urine 12/31/2024 4:40 PM EDT us Maru Garcia PA-C POINT OF CARE TEST ORDERAB LES Final Result * Urine Culture (12/31/2024 4:37 PM EDT) Pathologist [facility] Culture SEE NOTE [facility] Comment: CULTURE, URINE, ROUTINE Micro Number: [id number] Test Status: Final Specimen Source: Urine Specimen Quality: Adequate Result: Mixed genital raj isolated. These superficial bacteria are not indicative of a urinary tract infection. No further organism identification is warranted on this specimen. If clinically indicated, recollect clean-catch, mid-stream urine and transfer immediately to Urine Culture Transport Tube. 12/31/2024 4:37 PM EDT 01/01/2025 10:31 AM EDT Maru Garcia PA-C LAB AMB MICRO ORDERABLES F inal Result [facility] [address] [place] [phone] * HIV 1/2 Ag/Ab CMIA Reflex to Confirmation (04/02/2024 1:18 PM EDT) Pathologist [facility] HIV Ag/Ab, 4th Gen NON-REACT TORIE NON-REACT TORIE [facility] Comment: HIV-1 antigen and HIV-1/HIV-2 antibodies were not detected. There is no laboratory evidence of HIV infection. PLEASE NOTE: This information has been disclosed to you from records whose confidentiality may be protected by state law. If your state requires such protection, then the state law prohibits you from making any further disclosure of the information without the specific written consent of the person to whom it pertains, or as otherwise permitted by law. A general authorization for the release of medical or other information is NOT sufficient for this purpose. For additional information please refer to http://education.YuMingle/faq/UCQ995 (This link is being provided for informational/ educational purposes only.) The performance of this assay has not been clinically validated in patients less than 2 years old. Blood Blood specimen / Unknown 04/02/2024 1:18 PM EDT 04/03/2024 5:03 AM EDT Shikha BENNETT LAB BLOOD ORDERABLES F inal Result Performing Organization Address [facility] de Phone Number [facility] [address] [place] [phone] * Hepatitis C Antibody (04/02/2024 1:18 PM EDT) Pathologist [facility] Hepatitis C Antibody NON-REACT TORIE NON-REACT TORIE [facility] Comment: HCV antibody was non-reactive. There is no laboratory evidence of HCV infection. In most cases, no further action is required. However, if recent HCV exposure is suspected, a test for HCV RNA (test code 81916) is suggested. For additional information please refer to http://education.YuMingle/faq/FPW49c9 (This link is being provided for informational/ educational purposes only.) Blood Blood specimen / Unknown 04/02/2024 1:18 PM EDT 04/03/2024 5:03 AM EDT Shikha BENNETT LAB BLOOD ORDERABLES F inal Result Performing Organization Address [facility] de Phone Number [facility] [address] [place] [phone] from Last 3 Months or Most Recently Relevant to Health Maintenance Insurance [facility] Care Teams Gravel Roofer Relationship Specialty Start Date End Date Ivan Cunha MD [address] [place] [address] PCP - General Internal Medicine 12/31/23 Lacey Miller MD 800 [facility] [address] [place] [address] Pediatric, General 05/30/23
--- OUTSIDE RECORDS SUMMARY | 2025-03-21 20:06 | XMS_ITS | Encounter Summary ---
Author Organization [facility] Address [address] [place] [address] Care Team Providers Care Brand Designer Name Role Phone Lacey Miller MD Unavailable Ivan Cunha MD Primary Care Provider [phone] Encounter Details Date Type Department Care Team ([facility] Contact Info) Description 07/13/2024 Scanned Document [address] [place] [phone] Provider, Generic Social History Tobacco Use Types Packs/Day Years Used Date Smoking Tobacco: Never Assessed Comments Unknown Sex and Gender Information Value Date Recorded [...] the use of the PT Supplied PG 3791 Insert x 1 week. PT LTG 2 [...] on filedocumented in this encounter Care Teams Brand Designer Relationship Specialty Start Date End Date Ivan Cunha MD [address] [place] [address] PCP - General Internal Medicine 12/31/23 Lacey Miller MD [address] [address] Pediatric, General 05/30/23 documented as of this encounter
--- OUTSIDE RECORDS SUMMARY | 2025-03-21 20:06 | XMS_ITS | Encounter Summary ---
Author Organization [facility] Address [address] [place] [address] Care Team Providers Care Well Shooter Name Role Phone Lacey Miller MD Primary Care Provider [phone] Valentina Saldaña PhD Unavailable Lillian Lanier MD Primary Care Provider [phone] Reason for Visit * Reason Comments Medication Refill Encounter Details Date Type Department Care Team ([facility] Contact Info) Description 04/01/2019 Refill [facility] Primary Care [address] [place] 1st Floor [place], [place] [phone] Lacey Miller MD [address] [place] [phone] Flexural eczema Social History Tobacco Use Types Packs/Day Years [...] as of this encounter Visit Diagnoses Diagnosis Flexural eczema Other atopic dermatitis and related conditions documented in this encounter Care Teams Well Shooter Relationship Specialty Start Date End Date Lacey Miller MD [address] [place] [address] PCP - General 02/20/16 10/09/23 Lillian Lanier MD 599 [facility] [address] [place] [address] PCP - General 10/10/23 Valentina Saldaña, PhD [address] [place] [address] Psychologist Psychology 05/22/21 documented as of this encounter
--- OUTSIDE RECORDS SUMMARY | 2025-03-21 20:06 | XMS_ITS | Encounter Summary ---
Author Organization [facility] Address [address] [place] [address] Care Team Providers Care Sampler Tester Name Role Phone Lacey Miller MD Unavailable [phone] Ivan Cunha MD Primary Care Provider [phone] Encounter Details Date Type Department Care Team ([facility] Contact Info) Description 06/05/2024 Scanned Document [address] [place] [phone] Provider, Generic Social History Tobacco Use [...] the use of the PT Supplied PG 2069 Insert x 1 week. PT LTG 2 [...] on filedocumented in this encounter Care Teams Sampler Tester Relationship Specialty Start Date End Date Ivan Cunha MD [address] [place] [address] PCP - General Internal Medicine 12/31/23 Lacey Miller MD [address] [address] Pediatric, General 05/30/23 documented as of this encounter
--- OUTSIDE RECORDS SUMMARY | 2025-03-21 20:06 | XMS_ITS | Clinical Summary ---
Author Organization [facility] Address [address] [place] [address] Care Team Providers Care Truck Body Repairer Name Role Phone Valentina Saldaña PhD Unavailable Lillian Lanier MD Primary Care Provider [phone] Source Comments Please note that some or all of the patient's information could have additional privacy protections. State laws allow health care providers to render certain types of treatment to minors without parental consent. Please do not assume that this information can be shared solely by obtaining just the consent of the patient's parent/guardian. Please determine if all or part of the patient's care was rendered without parent/guardian involvement. And, if so, obtain the minor's consent prior to disclosure.[facility] Allergies Active Allergy Reactions Criticality Noted Date Comments Lactose (Intolerance) 08/09/2022 Seasonal 05/01/2018 Medications albuterol (PROVENTIL HFA;VENTOLIN HFA) 90 mcg/actuation inhaler Active polyethylene glycol (MIRALAX) 17 gram/dose powderIndication s:Slow transit constipation Take 17 g by mouth daily Mixed with fluids 765 g 1 2 Active Additional Information Patient not taking.Reported on 12/23/2022 lactase 9,000 unit TabletIndication s:Lactose intolerance Take 1 tablet by mouth 3 (three) times daily as needed 90 tablet 4 3 Active cetirizine (ZYRTEC) 10 MG tabletIndication s:Seasonal allergies Take 1 tablet (10 mg) by mouth daily 30 tablet 6 3 Active Active Problems Problem Noted Date Diagnosed Date History of myringotomy 12/06/2022 3 S/P reduction mammoplasty 09/24/2022 Retroverted uterus 08/20/2022 12/23/2022 Suicidal ideation 06/16/2022 Major depressive disorder, recurrent episode, se linnette 08/08/2021 Macromastia 09/11/2020 Overview (09/11/2020): Added automatically from request for surgery [id number] Chronic midline thoracic back pain 09/11/2020 Overview (09/11/2020): Added automatically from request for surgery [id number] Eczema 04/10/2020 Asthma 04/10/2020 Immunizations Immunization Administration Dates Next Due DTaP 01/28/2008, 5,02/20/2004,11/28,2003 [id number] Inj 05/05/2009 HPV 9 08/13/2017,01/20/2017 Hep A, Unspecified 09/11/2015,01/28/2008 Hep B, Unspecified 02/20/2004, 4,2003,07/23 HiB, Unspecified 01/01/2005, 4,2003,09/21 IPV 01/28/2008, 4,2003,09/21 Influenza Nasal, Unspecified Formulation 07/08/2013,07/23/2012,05/05/2009 Influenza Seasonal, Injectable 03/30/2014 Influenza, Quad, Preservative Free 08/09,05/14/2021,05/24/2020,04/07,03/24/2018,04/23/2017 Influenza, Unspecified 09/11/2015 MMR 12/10/2006,07/23/2004 Meningococcal Conjugate Sero groups ACWY (Polysaccharide)(MCV4P) 05/24/2020 Meningococcal Serogroups ACW Y, Unspecified Conjugated Formulation (MCV4) 08/31/2014 Pneumococcal Conjugate 7-Valent 01/02/20 05,02/20/2004,2003,09/21 Tdap 08/31/2014 Varicella 12/10/2006,07/23/2004 Family History Medical History Relation Name Comments Diabetes Other Stroke Other Anesthesia problems Neg Hx Bleeding disorder Neg Hx Relation Name Status Comments Other Social History Tobacco Use Types Packs/Day Years Used Date Smoking Tobacco: Never Smokeless Tobacco: Never Tobacco Cessation:Counseling Given: Not Answered Alcohol Use Standard Drinks/Week Comments Yes 0 (1 standard drink = 0.6 oz pur e alcohol) Other Needs Answer Date Recorded Anything else about your child you'd like help w ith? Not on file 03/07/2023 Share good news about positive changes: Not on f ile 03/07/2023 Comments No Sex and Gender Information Value Date Recorded Sex Assigned at Female 05/01/2022 1:06 PM EST Legal Sex Female 2:19 AM EST Gender Identity Female 05/01/2022 1:06 PM EST Sexual Orientation Not on file Last Filed Vital Signs Vital Sign Reading Time Taken Comments Blood Pressure 122/81 12/23/2022 4:36 PM EDT Pulse 95 12/23/2022 4:36 PM EDT Temperature 36.7 C (98 F) 12/23/2022 4:36 PM EDT Respiratory Rate 18 12/23/2022 4:36 PM EDT Oxygen Saturation 98% 03/04/2022 11:13 AM EDT Inhaled Oxygen Concentration - - Weight 98.2 kg (216 lb 7.9 oz) 12/23/2022 4:36 P M EDT Height 160 cm (5' 2.99 ) 12/23/2022 4:36 PM EDT Body Mass Index 38.36 12/23/2022 4:36 PM EDT Plan of Treatment Health Maintenance Due Date Last Done Comments ADOLESCENT HIV SCREENING 09/01/2023 023, 03/04/2022, 10/02/2021, Additional history exists DTaP/TDAP/TD VACCINES (7 - Td or Tdap) 08/31/2024 08/31/2014, 01/28/2008, 01/01/2005, Additional history exists COVID-19 Vaccine ( season) 2025 08/03/2021, 07/06/2021 INFLUENZA (#1) 2025 08/09/2022, 04/24, 05/24/2020, Additional history exists NIRSEVIMAB VACCINES UNDER 8 MONTHS Aged Out No longer eligible based on patient's age to complete this topic Procedures Procedure Name Priority Date/Time Associated Diagnosis Comments HIV 1/2 AG/AB CMIA REFLEX CONFIRM Routine 08/31/2022 11:45 AM EST Encounter for routine adult health examination with abnormal findings from Last 3 Months or Most Recently Relevant to Health Maintenance Results * HIV 1/2 Ag/Ab CIMA REFLEX CONFIRM (08/31/2022 11:45 AM EST) HIV AG/AB, 4TH GEN NON-REACT TORIE NON-REACT TORIE [facility] Comment: HIV-1 antigen and HIV-1/HIV-2 antibodies were [...] purpose. For additional information please refer to http://education.Jobdoh.Pretty Simple/faq/OHR937 (This link is being provided for informational/ educational purposes only.) The performance of this assay has not been clinically validated in patients less than 2 years old. Blood 08/31/2022 11:4 5 AM EST 08/31/2022 11:46 AM EST Narrative [facility] - 09/02/2022 1:58 PM EDT FASTING:YES FASTING: YES Resulting Agency Comment Performing Organization Information: Site ID: [id number] Name: [facility] Address: [address] [place] [id number] Director: Parvez Lindsay M.D. Lacey Miller MD LAB BLOOD ORDERABLES Final Res ult [facility] [address] [place] [address] [place] [address] [facility] [address] [place] [address] from Last 3 Months or Most Recently Relevant to Health Maintenance Insurance HUSYUMI A HUSYUMI A Care Teams Truck Body Repairer Relationship Specialty Start Date End Date Lillian Lanier MD [address] [facility] [address] [place] [address] PCP - General 10/10/23 Valentina Saldaña, PhD [address] [place] [address] Psychologist Psychology 05/22/21
--- OUTSIDE RECORDS SUMMARY | 2025-03-21 20:06 | XMS_ITS | Encounter Summary ---
Author Organization [facility] Address [address] [place] [address] Care Team Providers Care Gender Studies Professor Name Role Phone Lacey Miller MD Unavailable [phone] Ivan Cunha MD Primary Care Provider [phone] Encounter Details Date Type Department Care Team ([facility] Contact Info) Description 06/05/2024 Scanned Document [address] [place] [phone] Provider, Generic Social History Tobacco Use [...] the use of the PT Supplied PG 2232 Insert x 1 week. PT LTG 2 [...] on filedocumented in this encounter Care Teams Gender Studies Professor Relationship Specialty Start Date End Date Ivan Cunha MD [address] [place] [address] PCP - General Internal Medicine 12/31/23 Lacey Miller MD [address] [address] Pediatric, General 05/30/23 documented as of this encounter
--- OUTSIDE RECORDS SUMMARY | 2025-03-21 20:06 | XMS_ITS | Encounter Summary ---
Author Organization [facility] Address [address] [place] [address] Care Team Providers Care Central Office Technician Name Role Phone Lacey Miller MD Primary Care Provider [phone] Valentina Saldaña PhD Unavailable Lillian Lanier MD Primary Care Provider [phone] Reason for Visit * Reason Onset Date Comments Medication Refill 10/01/2022 Encounter Details Date Type Department Care Team ([facility] Contact Info) Description 10/01/2022 Refill [facility] Primary Care [address], [address] [place] [address] Chico Dahl MD [address] [place] [id number] Seasonal allergies Social History Tobacco Use Types Packs/Day Years [...] of this encounter Visit Diagnoses Diagnosis Seasonal allergies Allergic rhinitis, cause unspecified documented in this encounter Care Teams Central Office Technician Relationship Specialty Start Date End Date Lacey Miller MD [address] [place] [address] PCP - General 02/20/16 10/09/23 Lillian Lanier MD [address] [facility] [address] [place] [id number] PCP - General 10/10/23 Valentina Saldaña, PhD [address] [place] [address] Psychologist Psychology 05/22/21 documented as of this encounter
--- OUTSIDE RECORDS SUMMARY | 2025-03-21 20:06 | XMS_ITS | Encounter Summary ---
Author Organization [facility] Address [address] [place] [address] Care Team Providers Care Pulp Bleacher Name Role Phone Lacey Miller MD Primary Care Provider [phone] Valentina Saldaña PhD Unavailable Lillian Lanier MD Primary Care Provider [phone] Reason for Visit * Reason Comments Medication Refill Encounter Details Date Type Department Care Team ([facility] Contact Info) Description 10/13/2018 Refill [facility] Primary Care [address] [place] 1[address] Floor [place], [place] [id number] Lacey Miller MD [address] [place] [phone] Seasonal allergies Social History Tobacco Use Types [...] unspecified documented in this encounter Care Teams Pulp Bleacher Relationship Specialty Start Date End Date Lacey Miller MD [address] [place] [address] PCP - General 02/20/16 10/09/23 Lillian Lanier MD [address] [facility] [address] [place] [address] PCP - General 10/10/23 Valentina Saldaña, PhD [address] [place] [address] Psychologist Psychology 05/22/21 documented as of this encounter
--- OUTSIDE RECORDS SUMMARY | 2025-03-21 20:06 | XMS_ITS | Encounter Summary ---
Author Organization [facility] Address [address] [place] [address] Care Team Providers Care Director Of Math Name Role Phone Ivan Cunha MD Primary Care Provider [phone] Villa Stout APRN Unavailable [phone] Gilmer Dhillon MD Unavailable [phone] Reason for Referral * Diagnostic Imaging (Routine) - Closed Specialty Diagnoses / Procedures Referred By Reginald alfaro Referred To Contact Radiology Diagnoses Abnormal finding on breast imaging Procedures US breast complete bilateral Villa Stout APRN [address] [facility] [address] Phone: tel: fax: Referral ID Status Reason Start Date Expiration Date Visits Re quested Visits Authorized [id number] Closed 08/07/2023 09/10/2024 1 1 Encounter Details Date Type Department Care Team (Late st Contact Info) Description 08/07/2023 Orders Only [facility] Department of Women's Health [address] [address] Villa Stout APRN [address] [facility] [address] Abnormal finding on breast imaging (Primary Dx) Social History Tobacco Use Types Packs/Day Years Used Date Smoking Tobacco: Never Smokeless Tobacco: Never Alcohol Use Standard Drinks/Week Comments Yes 0 (1 standard drink = 0.6 oz pur e alcohol) On occasion once in a while PHQ-2 Answer Date Recorded PHQ-2 Score 4 08/04/2023 Hunger Vital Sign Answer Date Recorded Within the past 12 months, y ou worried that your food would run out before you got the money to buy more. Sometimes true Ran Out of Food in the Last Year Not on file 12/30/2022 PRAPARE - Transportation Answer Date Re corded In the past 12 months, has l ack of transportation kept you from medical appointments or from getting medications? No 12/30/2022 Lack of Transportation (Non-Medical) Not on file 12/30/2022 Comments No Sex and Gender Information Value [...] suspected to have Coronavirus/COVID-19? No / Unsure 08/07/2023 12:50 PM EST documented as of this encounter Plan of Treatment Upcoming Encounters Date Type Department Care Team (Late st Contact Info) Description 04/07/2025 1:40 PM EDT Office Visit [facility] Department of Internal Medicine [address] [place] [address] Ivan Cunha MD [address] [place] [address] [place] [address] 04/07/2025 3:00 PM EDT Office Visit [facility] Department of Neurology [address] [phone] Dionisio Barnhart MD [address] [place] [address] 2025 12:40 PM EST Office Visit [facility] Department of Internal Medicine [address] [place] [address] Ivan Cunha MD [address] [facility] [place] [address] 01/02/2026 10:00 AM EDT Office Visit [facility] Women[facility] [place] [address] [place] [address] Villa Stout APRN [address] [facility] [address] documented as of this encounter Results * US breast complete bilateral (02/03/2024 1:34 PM EDT) Anatomical Region Laterality Modality Breast Bilateral Ultrasound 02/03/2024 1:34 PM EDT Impressions 02/08/2024 5:13 PM EDT Stable bilateral ultrasound findings consistent with benign etiologies as described above. BI-RADS 2-Benign Finding Final report signed by Girma Lal MD Reminder to Patients and Legally Authorized Representatives: Language in this report is designed for medical communication with other treating physicians and clinical practitioners. Please speak with your provider(s) about any questions or concerns related to the content of this report. AF^0 Narrative 02/08/2024 5:13 PM EDT Exam: Targeted ultrasound evaluation of the Bilateral Breasts. US BREAST COMPLETE BILATERAL 02/03/2024 1:14 PM Patient : 2005 INDICATION: Bilateral benign findings which follow-up was recommended. COMPARISON: 08/07/2023 FINDINGS: The area previously identified on ultrasound was scanned. Right breast: At the 8:00 location, 4 cm from the nipple, there is a 9 x 6 x 4 mm well-circumscribed lesion with a fatty hilum, stable and consistent with a normal intramammary lymph node. Left breast: At the 1:00 retroareolar location, there is a 11 x 11 x 10 mm stable mass with a biopsy clip within it, consistent with benign fibroadenoma. At the 11:00 location, 5 cm from the nipple, there is a 6 x 6 x 4 mm well-circumscribed structure consistent with a benign cyst which is stable from the prior study. Left axillary lymph nodes are noted which is decreased cortical thickening compared to the prior ultrasound, consistent with benign lymph nodes. us Villa Stout APRN IMG BI PROCEDURES Final Res ult documented in this encounter Visit Diagnoses Diagnosis Abnormal finding on breast imaging- Primary Abnormal finding on breast imaging documented in this encounter Additional Health Concerns Infection Onset Date Last Indicated Resolved Time (Rule out) Influenza 2024 2024 025 2:39 PM EST (Rule out) RSV 2024 2024 2024 2: 39 PM EST (Rule out) COVID-19 2024 2024 07/22/19 25 2:39 PM EST Assessment Noted Time PHQ-9 Depression Total Score: 14 024 1:07 PM EST documented as of this encounter Care Teams Director Of Math Relationship Specialty Start Date End Date Ivan Cunha MD [address] [place] [address] [place] [address] PCP - General Internal Medicine 12/30/22 Villa Stout APRN [address] [place] [phone] Advanced Nurse Practitioner Obstetrics and Gynecology 02/17/23 Gilmer Dhillon MD [address] [place] [address] [phone] Referring Physician Obstetrics and Gynecology 10/29/23 documented as of this encounter
--- OUTSIDE RECORDS SUMMARY | 2025-03-21 20:06 | XMS_ITS | Encounter Summary ---
Author Organization [facility] Address [address] [place] [address] Care Team Providers Care Stage Rigger Name Role Phone Ivan Cunha MD Primary Care Provider [phone] Villa Stout APRN Unavailable [phone] Gilmer Dhillon MD Unavailable [phone] Encounter Details Date Type Department Care Team (Late st Contact Info) Description 06/22/2024 Orders Only [facility] Department of Internal Medicine [address] [place], [place] [phone] Angel Jett MD [address] [place] [address] Social History Tobacco Use Types Packs/Day Years Used Date Smoking Tobacco: Never Smokeless Tobacco: Never Alcohol Use Standard Drinks/Week Comments Yes 0 (1 standard drink = 0.6 oz pur e alcohol) On occasion once in a while PHQ-2 Answer Date Recorded PHQ-2 Score 2 12/01/2023 Hunger Vital Sign Answer Date Recorded Within [...] Transportation (Non-Medical) Not on file 12/30/2022 Comments Unknown Sex and Gender Information Value [...] suspected to have Coronavirus/COVID-19? No / Unsure 06/25/2024 9:58 AM EST documented as of this encounter Plan of Treatment Upcoming Encounters Date Type Department Care Team (Late st Contact Info) Description 04/07/2025 1:40 PM EDT Office Visit [facility] Department of Internal Medicine [address] [place] [address] Ivan Cunha MD [address] [place] [address] [place] [address] 04/07/2025 3:00 PM EDT Office Visit [facility] Department of Neurology [address] [place] [address] Dionisio Barnhart MD [address] [place] [address] 2025 12:40 PM EST Office Visit [facility] of Internal Medicine [address] [place] [address] Ivan Cunha MD [address] [place] [address] [place] [address] 01/02/2026 10:00 AM EDT Office Visit [facility] of Women's Health [address] [address] Villa Stout APRN [address] [facility] [address] documented as of this encounter Visit Diagnoses Not on filedocumented in this encounter Additional Health Concerns Infection Onset Date Last Indicated Resolved Time (Rule out) Influenza 2024 2024 025 2:39 PM EST (Rule out) RSV 2024 2024 2024 2: 39 PM EST (Rule out) COVID-19 2024 2024 07/22/19 25 2:39 PM EST Assessment Noted Time PHQ-9 Depression Total Score: 17 024 11:26 AM EDT documented as of this encounter Care Teams Stage Rigger Relationship Specialty Start Date End Date Ivan Cunha MD [address] [place] [address] [place] [address] PCP - General Internal Medicine 12/30/22 Villa Stout APRN [address] [place] [phone] Advanced Nurse Practitioner Obstetrics and Gynecology 02/17/23 Gilmer Dhillon MD [address] [place] [address]-[place] [address] Referring Physician Obstetrics and Gynecology 10/29/23 documented as of this encounter
--- OUTSIDE RECORDS SUMMARY | 2025-03-21 20:06 | XMS_ITS | Encounter Summary ---
Author Organization [facility] Address [address] [place] [address] Care Team Providers Care Detective Chief Name Role Phone Lacey Miller MD Unavailable [phone] Ivan Cunha MD Primary Care Provider [phone] Encounter Details Date Type Department Care Team ([facility] Contact Info) Description 04/02/2024 Scanned Document [address] [place] [phone] Provider, Generic Social History Tobacco Use [...] the use of the PT Supplied PG 9647 Insert x 1 week. PT LTG 2 [...] on filedocumented in this encounter Care Teams Detective Chief Relationship Specialty Start Date End Date Ivan Cunha MD [address] [place] [address] PCP - General Internal Medicine 12/31/23 Lacey Miller MD [address] [address] Pediatric, General 05/30/23 documented as of this encounter
--- OUTSIDE RECORDS SUMMARY | 2025-03-21 20:06 | XMS_ITS | Encounter Summary ---
Author Organization [facility] Address [address] [place] [address] Care Team Providers Care Senior Javascript Engineer Name Role Phone Ivan Cunha MD Primary Care Provider [phone] Villa Stout APRN Unavailable [phone] Gilmer Dhillon MD Unavailable [phone] Encounter Details Date Type Department Care Team (Late st Contact Info) Description 05/25/2024 Orders Only [facility] Department of Internal Medicine [address] [place], [place] [phone] Ivan Cunha MD [address] [facility] [place] [address] Other headache syndrome (Primary Dx); Sleep disorder Social History Tobacco Use Types Packs/Day Years [...] Orientation Straight 12/22/2023 2: 27 PM EDT documented as of this encounter Plan of Treatment Upcoming Encounters Date Type Department Care Team (Late st Contact Info) Description 04/07/2025 1:40 PM EDT Office Visit [facility] of Internal Medicine [address] [place] [address] Ivan Cunha MD [address] [place] [address] [place] [address] 04/07/2025 3:00 PM EDT Office Visit [facility] Department of Neurology [address] [place] [address] Dionisio Barnhart MD [address] [place] [address] 2025 12:40 PM EST Office Visit [facility] of Internal Medicine [address] [place] [address] Ivan Cunha MD [address] [place] [address] [place] [address] 01/02/2026 10:00 AM EDT Office Visit [facility] [address] [address] Villa Stout APRN 800 [facility] [place] [address] documented as of this encounter Visit Diagnoses Diagnosis Other headache syndrome- Primary Sleep disorder Unspecified sleep disturbance documented in this encounter Additional Health Concerns Infection Onset Date Last Indicated Resolved Time (Rule out) Influenza 2024 2024 025 2:39 PM EST (Rule out) RSV 2024 2024 2024 2: 39 PM EST (Rule out) COVID-19 2024 2024 07/22/19 25 2:39 PM EST Assessment Noted Time PHQ-9 Depression Total Score: 17 024 11:26 AM EDT documented as of this encounter Care Teams Senior Javascript Engineer Relationship Specialty Start Date End Date Ivan Cunha MD [address] [facility] [place] [address] PCP - General Internal Medicine 12/30/22 Villa Stout APRN [address] [place] [phone] Advanced Nurse Practitioner Obstetrics and Gynecology 02/17/23 Gilmer Dhillon MD [address] [facility] [place] [address] Referring Physician Obstetrics and Gynecology 10/29/23 documented as of this encounter
--- OUTSIDE RECORDS SUMMARY | 2025-03-21 20:06 | XMS_ITS | Encounter Summary ---
Author Organization [facility] Address [address] [place] [address] Care Team Providers Care Immigration Inspector Name Role Phone Ivan Cunha MD Primary Care Provider [phone] Villa Stout APRN Unavailable [phone] Gilmer Dhillon MD Unavailable [phone] Encounter Details Date Type Department Care Team (Late st Contact Info) Description 07/20/2024 Orders Only [facility] Department of Internal Medicine [address] [place], [place] [address] Ivan Cunha MD [address] [facility] [place] [address] Mild intermittent asthma without complication (Primary Dx); Cat allergies; Vitamin D deficiency Social History Tobacco Use Types Packs/Day Years Used Date Smoking Tobacco: Never Passive Smoke Exposure: Never Smokeless Tobacco: Never Alcohol Use Standard Drinks/Week Comments Yes 0 (1 standard drink = 0.6 oz pur e alcohol) On occasion once in a while [facility] Utilities Answer Date Recorded In the past 12 months has [employer] electric, gas, oil, or water company threatened [...] were you homeless or living in a chcf (including now)? No 07/19/2024 Comments Unknown Sex and Gender Information Value [...] suspected to have Coronavirus/COVID-19? No / Unsure 2024 11:22 AM EST documented as of this encounter Plan of Treatment Upcoming Encounters Date Type Department Care Team (Late st Contact Info) Description 04/07/2025 1:40 PM EDT Office Visit [facility] Department of Internal Medicine [address] [place] [address] Ivan Cunha MD [address] [facility] [place] [address] 04/07/2025 3:00 PM EDT Office Visit [facility] Department of Neurology [address] [phone] Dionisio Barnhart MD [address] [place] [address] 2025 12:40 PM EST Office Visit [facility] Department of Internal Medicine [address] [place] [address] Ivan Cunha MD [address] [place] [address] [place] [address] 01/02/2026 10:00 AM EDT Office Visit [facility] [address] [place] [address] Villa Stout APRN 800 [facility] [place] [address] documented as of this encounter Visit Diagnoses Diagnosis Mild intermittent asthma without complication- Primary Cat allergies Allergic rhinitis due to other allergen Vitamin D deficiency documented in this encounter Additional Health Concerns Infection Onset Date Last Indicated Resolved Time (Rule out) Influenza 2024 2024 025 2:39 PM EST (Rule out) RSV 2024 2024 2024 2: 39 PM EST (Rule out) COVID-19 2024 2024 07/22/19 25 2:39 PM EST Assessment Noted Time PHQ-9 Depression Total Score: 17 024 11:26 AM EDT documented as of this encounter Care Teams Immigration Inspector Relationship Specialty Start Date End Date Ivan Cunha MD [address] [place] [address] [place] [address] PCP - General Internal Medicine 12/30/22 Villa Stout APRN [address] [place] [phone] Advanced Nurse Practitioner Obstetrics and Gynecology 02/17/23 Gilmer Dhillon MD [address] [place] [address]-[place] [address] Referring Physician Obstetrics and Gynecology 10/29/23 documented as of this encounter
--- OUTSIDE RECORDS SUMMARY | 2025-03-21 20:06 | XMS_ITS | Encounter Summary ---
Author Organization [facility] Address [address] [place] [address] Care Team Providers Care Gifts Officer Name Role Phone Ivan Cunha MD Primary Care Provider [phone] Villa Stout APRN Unavailable [phone] Gilmer Dhillon MD Unavailable [phone] Reason for Referral * (Routine) - Closed Specialty Diagnoses / Procedures Referred By Contac t Referred To Contact Diagnoses Visit for screening for infections w/predomly sexual mode transmission Procedures Trichomonas vaginalis by Mine Engineering Supervisor-Mediated Amplification (TMA) Villa Stout APRN [address] [facility] [place] [address] Phone: tel: fax: Referral ID Status Reason Start Date Expiration Date Visits Re quested Visits Authorized [id number] Closed 02/12/2024 03/18/2025 1 1 Encounter Details Date Type Department Care Team (Late st Contact Info) Description 02/12/2024 Orders Only [facility] Department of Women's Health [address] [address] Villa Stout APRN [address] [facility] [place] [address] Visit for screening for infections w/predomly sexual mode transmission (Primary Dx) Social History Tobacco Use Types [...] suspected to have Coronavirus/COVID-19? No / Unsure 02/10/2024 2:35 PM EDT documented as of this encounter Plan of Treatment Upcoming Encounters Date Type Department Care Team (Late st Contact Info) Description 04/07/2025 1:40 PM EDT Office Visit [facility] Department of Internal Medicine [address] [place] [address] Ivan Cunha MD [address] [place] [address] [place] [address] 04/07/2025 3:00 PM EDT Office Visit [facility] Department of Neurology [address] [phone] Dionisio Barnhart MD [address] [place] [address] 2025 12:40 PM EST Office Visit [facility] Department of Internal Medicine [address] [place] [address] Ivan Cunha MD 263 [facility] [place] [address] 01/02/2026 10:00 AM EDT Office Visit Count includes the [facility] [place] [address] [place] [address] Villa Stout APRN 800 [facility] [place] [address] Scheduled Orders Name Type Priority Associated Diagnoses Orde r Schedule Trichomonas vaginalis by Mine Engineering Supervisor-Mediated Amplification (TMA) Microbiology Add-On Visit for screening for infections w/predomly sexual mode transmission Expected: 02/12/2024, Expires: 04/13/2024 documented as of this encounter Visit Diagnoses Diagnosis Visit for screening for infections w/predomly sexual mode transmission- Primary documented in this encounter Additional Health Concerns Infection Onset Date Last Indicated Resolved Time (Rule out) Influenza 2024 2024 025 2:39 PM EST (Rule out) RSV 2024 2024 2024 2: 39 PM EST (Rule out) COVID-19 2024 2024 07/22/19 25 2:39 PM EST Assessment Noted Time PHQ-9 Depression Total Score: 17 024 11:26 AM EDT documented as of this encounter Care Teams Gifts Officer Relationship Specialty Start Date End Date Ivan Cunha MD 263 [facility] [place] [address] PCP - General Internal Medicine 12/30/22 Villa Stout APRN [address] [phone] Advanced Nurse Practitioner Obstetrics and Gynecology 02/17/23 Gilmer Dhillon MD 263 [facility] SALES [place] [address] Referring Physician Obstetrics and Gynecology 10/29/23 documented as of this encounter
--- OUTSIDE RECORDS SUMMARY | 2025-03-21 20:06 | XMS_ITS | Encounter Summary ---
Author Organization [facility] Address [address] [place] [address] Care Team Providers Care School Manager Name Role Phone Lacey Miller MD Unavailable Ivan Cunha MD Primary Care Provider [phone] Encounter Details Date Type Department Care Team ([facility] Contact Info) Description 04/02/2024 Scanned Document [address] [place] [phone] Provider, Generic Social History Tobacco Use [...] the use of the PT Supplied PG 9539 Insert x 1 week. PT LTG 2 [...] on filedocumented in this encounter Care Teams School Manager Relationship Specialty Start Date End Date Ivan Cunha MD [address] [place] [address] PCP - General Internal Medicine 12/31/23 Lacey Millre MD [address] [address] Pediatric, General 05/30/23 documented as of this encounter
--- OUTSIDE RECORDS SUMMARY | 2025-03-21 20:06 | XMS_ITS | Patient Health Record ---
Author Organization [facility] Address [address] [place] [phone] Care Team Providers Care Framing Specialist Name Role Phone Lacey Miller Primary Care Provider Unavailabl e Allergies Allergen (clinical drug ingredient) Drug/Non Drug Allergy documented on EMR Reaction Allergy Type Onset Date Status lactose Lactose (Intolerance) Unknown Drug Allergy Active Pollen Pollen Unknown Allergy Active Reason For Referral No Information Medications Medication SIG (Take, Route, Frequency, Duration) Notes Start Date End Date Status DayQuil Multi-Symptom Active Cetirizine HCl PRN Not-T aking Albuterol MDI PRN Not-Taking Social History Social History Additional Details Category Social Info Options Details Pediatric - Adult School Grade? College Drug/Alcohol Use? Yes, occasiona l alcohol consumption. Tobacco Use? No Lives With Family? Yes Problems Problem Type SNOMED Code ICD Code Onset Dates Problem Status W/U Status Risk Notes Problem Asthma (141508054) Asthma (J45.909) Active confirmed Problem Seasonal allergy (146209689) Seasonal allergies (J30.2) Active confirmed Problem Mood disorder (10184592) Mood disorder (F39) Active confirmed Problem Exacerbation of asthma (553540951) Asthma exacerbation (J45.901) Active confirmed Problem Endometriosis (591891810) Endometriosis (N80.9) Active confirmed Plan Of Treatment No Information Insurance Providers Payer Name Payer Address Payer Phone Subscriber Number Group Number Insured Name Patient Relationship to Insured Coverage Start Date Coverage End Date [facility] MEDICA[facility] [address] COREEN MCKEON [id number] [phone] [id number] Megan Dominguez Self - patient is the insured 3 Medications Administered Medication Instructions Date of Administration Dosage Notes dexAMETHasone 11/28/2022 16 mg Ibuprofen 03/22/2023 600 mg Medical (General) History Medical History History ICD Code Mood disorder F39 Pre-diabetes R73.03 Asthma J45.909 Endometriosis N80.9 Surgical History Surgery Date(Month/Year) Breast reduction Ear tube placement Dental procedure - wisdom teeth Breast biopsy Hospitalization History Reason Date(Month/Year)
--- OUTSIDE RECORDS SUMMARY | 2025-03-21 20:06 | XMS_ITS | Encounter Summary ---
Author Organization [facility] Address [address] [place] [address] Care Team Providers Care Portable Machine Cutter Name Role Phone Lacey Miller MD Primary Care Provider [phone] Valentina Saldñaa PhD Unavailable Lillian [place]ier MD Primary Care Provider [phone] Reason for Visit * Reason Comments Medication Refill Encounter Details Date Type Department Care Team ([facility] Contact Info) Description 09/06/2019 Refill [facility] Primary Care [address] 1st Floor [place], [place] [phone] Lacey Miller MD [address] [place] [phone] Seasonal allergies Social History Tobacco Use Types Packs/Day Years Used Date Smoking Tobacco: Never Smokeless Tobacco: Never Comments:Family members smok e marijuana. Alcohol Use Standard Drinks/Week Comments Not Asked [...] unspecified documented in this encounter Care Teams Portable Machine Cutter Relationship Specialty Start Date End Date Lacey Miller MD [address] [place] [address] PCP - General 02/20/16 10/09/23 Lillian Lanier MD 599 [facility] [address] [place] [address] PCP - General 10/10/23 Valentina Saldaña, PhD [address] [place] [address] Psychologist Psychology 05/22/21 documented as of this encounter
--- OUTSIDE RECORDS SUMMARY | 2025-03-21 20:06 | XMS_ITS | Encounter Summary ---
Author Organization [facility] Address [address] [place] [address] Care Team Providers Care Radio Frequency Technician Name Role Phone Lacey Miller MD Primary Care Provider Valentina Saldaña PhD Unavailable Lillian Lanier MD Primary Care Provider Reason for Visit * Reason Comments Medication Refill Encounter Details Date Type Department Care Team ([facility] Contact Info) Description 03/08/2019 Refill [facility] Primary Care [address] [place], [place] [phone] Lacey Miller MD [address] [place] [phone] Seasonal allergies Social History Tobacco Use Types [...] unspecified documented in this encounter Care Teams Radio Frequency Technician Relationship Specialty Start Date End Date Lacey Miller MD [address] [place] [address] PCP - General 02/20/16 10/09/23 Lillian Lanier MD 599 [facility] [address] [place] [address] PCP - General 10/10/23 Valentina Saldaña, PhD [address] [place] [address] Psychologist Psychology 05/22/21 documented as of this encounter
--- OUTSIDE RECORDS SUMMARY | 2025-03-21 20:06 | XMS_ITS | Encounter Summary ---
Author Organization [facility] Address [address] [place] [address] Care Team Providers Care Instrumentation Manager Name Role Phone Lacey Miller MD Primary Care Provider [phone] Valentina Saldaña PhD Unavailable Lillian Lanier MD Primary Care Provider [phone] Reason for Visit * Reason Comments Medication Refill Encounter Details Date Type Department Care Team ([facility] Contact Info) Description 12/09/2018 Refill [facility] Primary Care [address] 1st Floor [place], [place] [phone] Lacey Miller MD [address] [place] [phone] Dysmenorrhea in adolescent Social History Tobacco Use [...] adolescent documented in this encounter Care Teams Instrumentation Manager Relationship Specialty Start Date End Date Lacey Miller MD [address] [place] [address] PCP - General 02/20/16 10/09/23 Lillian Lanier MD 599 [facility] [address] [place] [address] PCP - General 10/10/23 Valentina Saldaña, PhD [address] [place] [address] Psychologist Psychology 05/22/21 documented as of this encounter
--- OUTSIDE RECORDS SUMMARY | 2025-03-21 20:06 | XMS_ITS | Encounter Summary ---
Author Organization [facility] Address [address] [place] [address] Care Team Providers Care Director Call Center Sales Name Role Phone Lacey Miller MD Primary Care Provider [phone] Valentina Saldaña PhD Unavailable Lillian Lanier MD Primary Care Provider [phone] Reason for Visit * Reason Comments Medication Refill Encounter Details Date Type Department Care Team ([facility] Contact Info) Description 09/18/2019 Refill [facility] Primary Care [address] [place] 1st Floor [place], [place] [phone] Chico Dahl MD [address] [place] [phone] Low vitamin D level Social History Tobacco Use Types Packs/Day Years [...] encounter Visit Diagnoses Diagnosis Low vitamin D level documented in this encounter Care Teams Director Call Center Sales Relationship Specialty Start Date End Date Lacey Miller MD [address] [place] [address] PCP - General 02/20/16 10/09/23 Lillian Lanier MD 599 [facility] [address] [place] [address] PCP - General 10/10/23 Valentina Saldaña, PhD [address] [place] [address] Psychologist Psychology 05/22/21 documented as of this encounter
--- OUTSIDE RECORDS SUMMARY | 2025-03-21 20:06 | XMS_ITS | Encounter Summary ---
Author Organization [facility] Address [address] [place] [address] Care Team Providers Care Lead Warehouse Associate Name Role Phone Ivan Cunha MD Primary Care Provider [phone] Villa Stout APRN Unavailable [phone] Gilmer Dhillon MD Unavailable [phone] Reason for Referral * OBGYN (Routine) - Closed Specialty Diagnoses / Procedures Referred By Contact Referred To Contact Obstetrics and Gynecology Diagnoses Mammogram abnormal Villa Stout APRN 800 [facility] [place] [address] Phone: tel: fax: [facility] [address] [address] Phone: tel: fax: Referral ID Status Reason Start Date Expiration Date V isits Requested Visits Authorized [id number] Closed Specialty Services Required 02/17/2023 03/23/2024 1 1 Encounter Details Date Type Department Care Team (Late st Contact Info) Description 02/04/2023 Orders Only [facility] Department of Women's [facility] [address] [place] [address] Villa Stout APRN [address] [facility] [place] [address] Mass of breast, unspecified laterality (Primary Dx); Mammogram abnormal Social History Tobacco Use Types Packs/Day Years Used Date Smoking Tobacco: Never Smokeless Tobacco: Never Alcohol Use Standard Drinks/Week Comments Yes 0 (1 standard drink = 0.6 oz pur e alcohol) On occasion once in a while Hunger Vital Sign Answer Date Recorded Within [...] suspected to have Coronavirus/COVID-19? No / Unsure 02/04/2023 9:16 AM EDT documented as of this encounter Plan of Treatment Upcoming Encounters Date Type Department Care Team (Late st Contact Info) Description 04/07/2025 1:40 PM EDT Office Visit [facility] Department of Internal Medicine [address] [place] [address] Ivan Cunha MD [address] [facility] [place] [address] 04/07/2025 3:00 PM EDT Office Visit [facility] Department of Neurology [address] [phone] Dionisio Barnhart MD [address] [place] [address] 2025 12:40 PM EST Office Visit [facility] Department of Internal Medicine [address] [place] [address] Ivan Cunha MD [address] [facility] [place] [address] 01/02/2026 10:00 AM EDT Office Visit [facility] [place] [address] [place] [phone] Villa Stout APRN 800 [facility] TECHNIC[employer] [place], [place] [phone] Scheduled Referrals Name Type Priority Associated Diagnoses Order Schedule Ambulatory referral to Breast Clinic Outpatient Referral Routine Mammogram abnormal Ordered: 02/17/2023 documented as of this encounter Visit Diagnoses Diagnosis Mass of breast, unspecified laterality- Primary Mammogram abnormal Abnormal mammogram, unspecified documented in this encounter Additional Health Concerns Infection Onset Date Last Indicated Resolved Time (Rule out) Influenza 2024 2024 025 2:39 PM EST (Rule out) RSV 2024 2024 2024 2: 39 PM EST (Rule out) COVID-19 2024 2024 07/22/19 25 2:39 PM EST documented as of this encounter Care Teams Lead Warehouse Associate Relationship Specialty Start Date End Date Ivan Cunha MD [address] [place] [address] [place] [address] PCP - General Internal Medicine 12/30/22 Villa Stout APRN [address] [place] [phone] Advanced Nurse Practitioner Obstetrics and Gynecology 02/17/23 Gilmer Dhillon MD [address] [place] [address]-[employer] [place] [phone] Referring Physician Obstetrics and Gynecology 10/29/23 documented as of this encounter
== END 2025-03-21 20:01 | disposition home or self-care (01) ==
PROVIDERS: Physician Assistant Medical; Emergency Provider Emergency Medicine
DX: N39.0 Urinary tract infection, site not specified (principal); R10.2 Pelvic and perineal pain; Z79.899 Other long term (current) drug therapy
CPT/HCPCS: 36415; 80053; 81001; 84702; 85025; 87086; 99282; 99283